=== PATIENT | female | born 1935 | race Caucasian/White ===

== ENCOUNTER 2016-10-13 12:05 | Outpatient (CLI) | payer MEDICARE ==
[2016-10-14 11:35] LABS: Bilirubin Negative (Negative); Blood, Urine Negative (Negative); Clarity Clear (Clear); Glucose, Urine (Dipstick) Negative (Negative); Leukocyte Small (Negative); Nitrite Negative (Negative); Protein, Urine (Dipstick) Negative (Neg-Trace); Urobilinogen 0.2 mg/dL (0.2-1.0); pH, Urine 6.5 (5.0-9.0)
[2016-10-14 11:56] LABS: Bacteria/HPF Rare-Few HPF (None Seen); RBC/HPF 0-3 HPF (0-3); Squamous Epithelial 0-3 HPF (0-3)
== END 2016-10-13 12:06 | disposition home or self-care (01) ==
LOC: MADLABBHPM 12:05
PROVIDERS: ATTEND Family Medicine
DX: R30.0 Dysuria (principal)
CPT/HCPCS: 36415; 81001; 87086

== ENCOUNTER 2017-02-06 09:24 | Emergency (ER) | payer MEDICARE | END 2017-02-06 10:16 | disposition home or self-care (01) | LOC: MADERS 09:24 | DX: J06.9 Acute upper respiratory infection, unspecified (principal); E03.9 Hypothyroidism, unspecified; I10 Essential (primary) hypertension; E78.5 Hyperlipidemia, unspecified; Z79.899 Other long term (current) drug therapy | CPT/HCPCS: 99283 ==

== ENCOUNTER 2017-09-07 00:12 | Inpatient (IN) | payer MEDICARE ==
[2017-09-07 01:20] LABS: Bilirubin Negative (Negative); Blood, Urine Negative (Negative); Clarity Clear (Clear); Glucose, Urine (Dipstick) Negative (Negative); Leukocyte Negative (Negative); Nitrite Negative (Negative); Protein, Urine (Dipstick) Negative (Neg-Trace); Urobilinogen 0.2 mg/dL (0.2-1.0)
[2017-09-07 01:33] LABS: #Basophils 0.1 thou/uL (0.0-0.2); #Lymphocytes 0.7 thou/uL (1.20-3.40); #Monocytes 1.2 thou/uL (0.11-0.59); %Basophils 0.6 % (0.0-1.0); %Eosinophils 0.1 % (0.0-10.0); %Lymphocytes 3.9 % (21.0-51.0); %Monocytes 6.6 % (0.0-10.0); %Neutrophils 88.8 % (42.0-75.0); Hemoglobin 12.4 g/dL (12.0-16.0); Mean Corpuscular Hemoglobin 29.6 pg (27.0-31.0); Mean Corpuscular Volume 89.7 fl (81.0-99.0); Platelet Count 189 thou/uL (130-400); RBC Distribution Width 11.7 % (11.5-14.5); Red Blood Cell (RBC) Count 4.19 mill/uL (4.20-5.40)
[2017-09-07 01:51] LABS: ALT (SGPT) 16 U/L (8-55); AST (SGOT) 21 U/L (5-34); Albumin 3.8 g/dL (3.4-4.8); Alkaline Phosphatase 86 U/L (40-150); Anion Gap 21 mmol/L (10-20); BUN (Urea Nitrogen) 18 mg/dL (9.8-20.1); Bilirubin, Total 0.7 mg/dL (0.2-1.2); Calc. Creatinine Clearance 0 mL/min (70-130); Calcium 9.4 mg/dL (7.8-10.44); Carbon Dioxide 17 mmol/L (23-31); Chloride 106 mmol/L (98-107); Estimated GFR-MDRD 46; Globulin 3.1 g/dL (2.4-3.5); Glucose 145 mg/dL (83-110); Potassium 3.9 mmol/L (3.5-5.1); Protein, Total 6.9 g/dL (6.0-8.3); Sodium 140 mmol/L (136-145)
[2017-09-07] MEDS ORDERED: Sodium Chloride 0.9% 1,000 ML IV SCH (03:30)
[2017-09-07] MEDS: Levothyroxine Sodium 75 MCG TAB PO SCH (06:28)
[2017-09-07 07:34] LABS: Albumin 3.5 g/dL (3.4-4.8); Anion Gap 14 mmol/L (10-20); BUN (Urea Nitrogen) 16 mg/dL (9.8-20.1); BUN/Creatinine Ratio 17.39; Calc. Creatinine Clearance 42 mL/min (70-130); Calcium 8.8 mg/dL (7.8-10.44); Carbon Dioxide 21 mmol/L (23-31); Chloride 108 mmol/L (98-107); Estimated GFR-MDRD 58; Glucose 121 mg/dL (83-110); Phosphorus 2.9 mg/dL (2.3-4.7); Potassium 4.1 mmol/L (3.5-5.1); Sodium 139 mmol/L (136-145)
[2017-09-07] MEDS ORDERED: Sodium Chloride 0.9% 500 ML BAG ONE (08:03)
[2017-09-07] MEDS: Lisinopril 5 MG TAB PO SCH (08:26)
[2017-09-07 08:35] LABS: Hemoglobin 11.9 g/dL (12.0-16.0); Mean Corpuscular HGB CONC 32.7 g/dL (32.0-36.0); Mean Corpuscular Hemoglobin 29.5 pg (27.0-31.0); Mean Platelet Volume 8.7 fL (7.4-10.4); Platelet Count 177 thou/uL (130-400); RBC Distribution Width 11.6 % (11.5-14.5); Red Blood Cell (RBC) Count 4.05 mill/uL (4.20-5.40); White Blood Cell (WBC) Count 13.7 thou/uL (4.8-10.8)
[2017-09-07 09:07] LABS: Anisocytosis SLIGHT = 6-15 cells (100X) (0-5/hpf); Band 2 % (5-11); Lymphocytes 6 % (21-51); MDiff Complete? YES; Monocytes 10 % (0-10); Neutrophil 82 % (42-75); PLT Morphology Comment Appears Adequate
--- NOTE | 2017-09-07 09:45 | HP ---
Admitted to [facility] on the technical consultant of 09/07/2017 CHIEF COMPLAINT: Weak and falling. PRESENT ILLNESS: The patient is an 82-year-old white female who has a history of dementia and expressive aphasia. She lives at home with her son, Kris as her primary caregiver. The patient has had a gradual decline in her strength over the last year and also has had progression of the dementia. On the day of admission, patient had fallen twice with no apparent injury, but she had become so weak that she could no longer be taking care of her home. Kris, her son who serves as her primary caregiver has a paralysis in the left arm. His capabilities are limited. The patient was brought to the emergency room where she was evaluated and evaluation included CBC that showed an H&H of 12.4 and 37.6 with a white blood cell count of 18,000 with 89% segs, 4% lymphocytes, and a platelet count of 189,000. Sodium was 140, potassium 3.9, BUN 18, creatinine 1.12, GFR 46. Her glucose was 145 nonfasting, calcium 9.4. Liver panel normal. Her urinalysis showed specific gravity 1.010, leukocytes were negative , nitrites were negative. The patient was admitted to the hospital after ER doctor conferred with me for frequent falls and leukocytosis. The patient was started on IV fluids. The patient was seen early on the morning of 09/07/2017. She was on room with a heater on and her face was flushed and she was alert, but due to her dementia and expressive aphasia, no information could be obtained from her. I have reviewed my records and records of her previous hospitalization and I placed a call to her son, Kris, who is to call me back for further details. The patient 's repeat lab work on this morning at 7:00 a.m. showed sodium 139, potassium 4.1 , BUN down to 16, creatinine down to 0.92 and GFR 58, glucose was 121. PAST MEDICAL AND SURGICAL HISTORY: Patient has a dementia, has been of gradual onset, has been progressive and probable the Alzheimer's type. She also has severe expressive aphasia, hypertension, hypothyroidism, hypercholesterolemia, and chronic kidney disease stage 3. She was hospitalized in 12/2015 for small left frontal subdural hematoma that was resolving with conservative care only with no focal neurologic deficit. Patient has had cataracts removed from the right eye with intraocular lens implant, L4-L5 depressive laminectomy by Dr. Darling in 04/2010, colonoscopy with removal of a benign polyp and also removal of a polypoid benign mass from anal canal in 2009, EGD on 01/2010 showed gastritis, echocardiogram on 08/07 showed ejection fraction of 50%-59%. Patient has had a fracture of the right arm requiring open reduction internal fixation of the right forearm. The patient had a left heart catheterization in 2002 that was normal and ejection fraction of 50%-55%. The patient is a 2, para 2. PRESENT MEDICINES: Lisinopril 5 mg daily, Donepezil 10 mg daily, levothyroxine 75 mcg 1 daily. ALLERGIES: ERYTHROMYCIN. REVIEW OF SYSTEMS: The patient unable to answer review of systems. ADLs: The patient requires assistance with her ADLs and all her instrumental ADLs. The patient is continent of urine and stools. HABITS: Alcohol none. Tobacco none. SOCIAL HISTORY: Patient resides in her home where her son, Kris is her primary caregiver. CODE STATUS: FULL. PHYSICAL EXAMINATION: GENERAL: Shows an 82-year-old white female who is lying in bed. The room is very warm from the heater. Her face is flushed. She has severe expressive aphasia and could not understand anything that she attempts to say. She does participate and help with simple instructions during the examination. VITAL SIGNS: Shows a temperature of 98.8, pulse 88, blood pressure 197/87, respirations 18, O2 sat 95% on room air, blood pressure earlier 176/72. Her weight is 127. Her height is 63.5 inches. HEAD: Normocephalic and atraumatic. EYES: Pupils were equal, round, and reactive. Sclerae nonicteric. EARS: TMs are blocked by cerumen. NOSE: Normal. MOUTH AND THROAT: Normal. NECK: Carotids are equal and strong, no bruits. Thyroid not enlarged. LUNGS: Clear. HEART: Regular rate. No murmurs. ABDOMEN: Soft, no organomegaly, nor areas of tenderness. EXTREMITIES: Show no bruising and no edema. Patient has good motion in the hip and knees with no pain. SKIN: There is no rash or bruising. NEUROLOGIC: Patient is alert, has severe expressive aphasia such that she cannot effectively communicate. She has no focal weakness. IMPRESSION: 1. Frequent falls. A. Two falls on the day of admission with no apparent injury. 2. Generalized weakness. A. Progressive. B. Level of care exceeds with her primary caregiver, her son can provide at this time. 3. Leukocytosis. 4. Alzheimer's dementia. 5. Expressive aphasia. 6. Hypertension. 7. Hypothyroidism. 8. Chronic kidney disease. 9. Dehydration. PLAN: Patient will be admitted for cautious hydration. We will place the patient back on her routine medicines and increase the lisinopril to 10 mg daily. We have physical therapy evaluate her and repeat CBC. At this point, there is no evidence of any infection. The leukocytosis may be secondary to decreased margination from the stressors of the recent falls, the falls probably secondary to progression of her weakness. See orders. MTDD
--- NOTE | 2017-09-07 12:30 | PRG ---
DATE OF SERVICE: 09/07/2017 SUBJECTIVE: I visited with patient's son, Kris, this morning and he told me that yesterday the higinio ent fell when she was out on the porch that is screened in. Later she got up and tried to walk and f ell again. Historically this last year, Kris says she has done pretty well other than progressive p roblems with expressive aphasia and some further confusion. He said she is usually able to walk pret ty well and will come out and walk out to the garden which is about 100 yards, but yesterday she coul d not do that, had the 2 falls. The patient usually is able to dress herself and bathe herself and s ometimes he might have to help her a little with this. She is usually continent of urine and stools. This morning when the nurses tried to get her up, she winced and would not bear any weight on that ri ght. She previously had been able to move that right hip without any pain, but with any attempt at w eight bearing, she complained. X-ray of the pelvis was ordered. This was reviewed and both hips are intact. I see no evidence of any fracture. The patient though does have a fracture of the right wyman perior and inferior pubic rami near the midline. ASSESSMENT: Closed fracture of the right superior and inferior pubic rami. PLAN: I visited with patient's son, Kris, to let him know about the hip fracture. I told him that this will not require any operative intervention, this will be managed with physical therapy and weig htbearing as tolerated. We will utilize the Tylenol for pain and also will add tramadol for pain if needed.
--- NOTE | 2017-09-07 12:42 | RAD ---
AP VIEW OF THE PELVIS: INDICATION: Pain. FINDINGS: There is a mildly displaced right pubic body fracture. No additional acute fracture is evident. The re is diffuse osteopenia. There are scattered vascular calcifications seen involving the pelvis. IMPRESSION: Right pubic body fracture. POS: RANDY
[2017-09-07] MEDS: Sodium Chloride 0.9% 1,000 ML IV SCH (13:01)
[2017-09-07] MEDS: Donepezil HCl 10 MG TAB PO SCH (20:44)
[2017-09-07] MEDS: traMADol HCl 50 MG TAB PO PRN (22:00)
[2017-09-08] MEDS: Sodium Chloride 0.9% 1,000 ML IV SCH (04:33)
[2017-09-08] MEDS: Levothyroxine Sodium 75 MCG TAB PO SCH (05:07)
[2017-09-08 05:42] LABS: #Eosinphils 0.1 thou/uL (0.0-0.7); #Lymphocytes 0.9 thou/uL (1.20-3.40); #Monocytes 0.8 thou/uL (0.11-0.59); #Neutrophils 9.8 thou/uL (1.40-6.50); %Basophils 0.4 % (0.0-1.0); %Eosinophils 0.6 % (0.0-10.0); %Lymphocytes 7.7 % (21.0-51.0); %Neutrophils 84.4 % (42.0-75.0); Hemoglobin 11.1 g/dL (12.0-16.0); Mean Corpuscular HGB CONC 33.2 g/dL (32.0-36.0); Mean Corpuscular Hemoglobin 29.4 pg (27.0-31.0); Mean Corpuscular Volume 88.5 fl (81.0-99.0); Platelet Count 150 thou/uL (130-400); RBC Distribution Width 11.9 % (11.5-14.5); Red Blood Cell (RBC) Count 3.78 mill/uL (4.20-5.40); White Blood Cell (WBC) Count 11.6 thou/uL (4.8-10.8)
[2017-09-08 05:46] LABS: Anion Gap 14 mmol/L (10-20); BUN (Urea Nitrogen) 14 mg/dL (9.8-20.1); Calc. Creatinine Clearance 48 mL/min (70-130); Calcium 8.4 mg/dL (7.8-10.44); Carbon Dioxide 20 mmol/L (23-31); Cardiac Risk 2.8 (Less than 4.5); Chloride 109 mmol/L (98-107); Cholesterol 160 mg/dl (< 200 Desired); Estimated GFR-MDRD 67; Glucose 110 mg/dL (83-110); HDL Cholesterol 57 mg/dL (>60 Neg Risk); LDL Cholesterol, Calculated 88 mg/dL; Sodium 139 mmol/L (136-145); Triglycerides 74 mg/dL (Less than 150)
[2017-09-08] MEDS: Acetaminophen 325 MG TAB PO PRN ×2 (08:36→16:10)
[2017-09-08] MEDS: Lisinopril 5 MG TAB PO SCH (08:36)
--- NOTE | 2017-09-08 08:55 | PRG ---
DATE OF SERVICE: 09/08/2017 SUBJECTIVE: The patient apparently had a good night. She has been using Tylenol for pain and has gomez d one dose of tramadol. This morning she is up in her chair. OBJECTIVE: GENERAL: The patient is sitting in a bedside chair. She looks very comfortable. She is attempting to talk, but could not understand what she says with her severe expressive aphasia. She appears comf ortable, in no distress. VITAL SIGNS: Her vital sign shows a temperature of 98.1, pulse 85, respirations 20, O2 sat 96% on ro om air. Blood pressure 164/72, last evening blood pressure was 134/68. LUNGS: Clear. HEART: Regular rate. EXTREMITIES: No edema LABORATORY DATA: Her lab shows an H&H of 12.1 and 33.4. White cell count 11,600 with 84% segs, 8% l ymphocytes, and platelet count 150,000. Sodium 139, potassium 4, BUN 14, creatinine 0.81, glucose 11 0. TSH 0.7, cholesterol 160, triglycerides 74, LDL 88, HDL 57. ASSESSMENT: 1. Fracture, right side pubic symphysis. A. Presenting with initial fall, which probably result in fracture and then a subsequent fall when s he could not support herself on the right leg. 2. Generalized weakness, complicated by gait abnormality. A. Secondary to the pubic symphysis fracture. 3. Leukocytosis. A. Resolved. B. Etiology probably secondary to stress from the fracture and the falls causing increased demargina tion. 4. Alzheimer's dementia. 5. Expressive aphasia. 6. Hypertension, controlled. 7. Hypothyroidism. 8. Chronic kidney disease. 9. Dehydration, resolved. PLAN: Stop the IV fluids. We utilize Tylenol for pain and tramadol for fall back. Physical therapy will work with her for gait training and strengthening.
[2017-09-08] MEDS ORDERED: FLU VACC TS2017-18 (>65YR) 0.5 ML SYRINGE IM ONE (09:00)
[2017-09-08] MEDS ORDERED: Sodium Chloride 0.9% 1,000 ML BAG ONE (12:01)
[2017-09-08 15:50] VITALS: BMI 21.7
[2017-09-08] MEDS: traMADol HCl 50 MG TAB PO PRN (17:39)
[2017-09-08] MEDS: Donepezil HCl 10 MG TAB PO SCH (20:29)
[2017-09-08] MEDS ORDERED: Acetaminophen 325 MG TAB PO PRN (22:00)
[2017-09-08] MEDS: Acetaminophen 325 MG TAB PO SCH (23:49)
[2017-09-09] MEDS: Levothyroxine Sodium 75 MCG TAB PO SCH (06:12)
[2017-09-09] MEDS: Acetaminophen 325 MG TAB PO SCH ×3 (08:25→23:44)
[2017-09-09] MEDS: Lisinopril 5 MG TAB PO SCH (08:25)
[2017-09-09] MEDS: Enoxaparin Sodium 30 MG/0.3 ML SYRINGE SC SCH (08:28)
--- NOTE | 2017-09-09 09:12 | PRG ---
DATE OF SERVICE: 09/09/2017 SUBJECTIVE: The patient had an uneventful night. She has been getting up in a chair, but the proces s of transfer is uncomfortable for her. I have this scheduled her with Tylenol 650 mg every 8 hours, and then the tramadol is used for breakthrough pain. Her son, Kris, is with her and said she is no t eating as good as usual and hopes to see her get back into her usual home routine, up with her meal s, business coordinator coffee, which he has brought her. OBJECTIVE: The patient is in bed with the head elevated. She looks a little uncomfortable. The rafaela se had said that she wears her support hose, but does not like to use the sequential compression seymour katya. Lungs are clear. Heart, regular rate. There is no bruise around the pelvic area, lower extrem ities have no edema. Her temperature is 98.1, pulse 64, respirations 20, O2 sat 96% on room air, blo od pressure 156/80. ASSESSMENT: 1. Fracture, right side pubic symphysis. A. Presenting with initial fall, which probably result in fracture and then a subsequent fall when s he could not support herself on the right leg. B. Tolerating up in a chair and pivot with the left leg as of 09/09/2017. 2. Generalized weakness, complicated by gait abnormality. A. Secondary to the pubic symphysis fracture. 3. Leukocytosis. A. Resolved. B. Etiology probably secondary to stress from the fracture and the falls causing increased demargina tion. 4. Alzheimer's dementia. 5. Expressive aphasia. 6. Hypertension, controlled. 7. Hypothyroidism. 8. Chronic kidney disease. 9. Dehydration, resolved. PLAN: We will continue the scheduled Tylenol and use the tramadol for breakthrough pain. We will st op the sequential compression devices since she seems uncomfortable with these. Continue the FANNY hos e and will place the patient on Lovenox since her activities are very restricted after this pelvic fr acture, exposing her to a higher risk of DVT.
[2017-09-09] MEDS: traMADol HCl 50 MG TAB PO PRN (12:43)
[2017-09-09] MEDS: Donepezil HCl 10 MG TAB PO SCH (20:36)
[2017-09-10] MEDS: Levothyroxine Sodium 75 MCG TAB PO SCH (05:28)
[2017-09-10] MEDS: traMADol HCl 50 MG TAB PO PRN (07:33)
[2017-09-10] MEDS: Acetaminophen 325 MG TAB PO SCH (07:34)
[2017-09-10] MEDS: Lisinopril 5 MG TAB PO SCH (09:34)
[2017-09-10] MEDS: Enoxaparin Sodium 30 MG/0.3 ML SYRINGE SC SCH (09:34)
[2017-09-10 09:41] VITALS: BP 200/95; TEMP 97.5
--- NOTE | 2017-09-10 15:16 | PRG ---
DATE OF SERVICE: 09/10/2017 SUBJECTIVE: The patient has been very uncomfortable in the process of transferring from bed to a bailey ir and takes a while once in the chair to settle down, tried getting patient on more frequent particu larly with meals, but this seems just to be too much for patient, will slow this process down, we andrzej l place her on regular dose of ibuprofen and then have the tramadol for a fall back. The Tylenol als o has been scheduled and hopefully this will give her a little bit more pain relief. OBJECTIVE: GENERAL: The patient is up in a chair; semi reclined and looks uncomfortable. VITAL SIGNS: Her vital sign shows temperature 98.5, pulse 71, respirations 18, O2 saturation 98%, an d blood pressure 140/90. LUNGS: Clear. HEART: Regular rate. ASSESSMENT: 1. Fracture, right side pubic symphysis. A. Presenting with initial fall, which probably result in fracture and then a subsequent fall when s he could not support herself on the right leg. B. Having difficult time for transfer from bed to a chair as of 09/10/2017. 2. Generalized weakness, complicated by gait abnormality. A. Secondary to the pubic symphysis fracture. 3. Leukocytosis. A. Resolved. B. Etiology probably secondary to stress from the fracture and the falls causing increased demargina tion. 4. Alzheimer's dementia. 5. Expressive aphasia. 6. Hypertension, controlled. 7. Hypothyroidism. 8. Chronic kidney disease. 9. Dehydration, resolved. PLAN: We will slow down the activities. We will allow her a little more at bed rest and then progre ss her up to side of the bed today as well and she tolerates progress her to the chair. At home, she utilizes the ibuprofen, but this had been stopped due to renal insufficiency with the renal in sufficiency, we will leave the ibuprofen off and continue to scheduled dose of Tylenol and use of tra madol for breakthrough pain. We will move patient to extended care for continued physical therapy an d pain management.
== END 2017-09-10 10:54 | disposition swing bed (61) | DRG 536 ==
LOC: MADERS 00:12 → MADMS 02:22
PROVIDERS: ADMIT Family Medicine; ATTEND Family Medicine
DX: S32.511A Fracture of superior rim of right pubis, initial encounter for closed fracture (principal); R47.01 Aphasia; G30.9 Alzheimer's disease, unspecified; N18.3 Chronic kidney disease, stage 3 (moderate); F02.80 Dementia in other diseases classified elsewhere, unspecified severity, without behavioral disturbance, psychotic disturbance, mood disturbance, and anxiety; S32.591A Other specified fracture of right pubis, initial encounter for closed fracture; R53.1 Weakness; E86.0 Dehydration; Z91.81 History of falling; E03.9 Hypothyroidism, unspecified; E78.00 Pure hypercholesterolemia, unspecified; I12.9 Hypertensive chronic kidney disease with stage 1 through stage 4 chronic kidney disease, or unspecified chronic kidney disease; Z88.1 Allergy status to other antibiotic agents; W18.30XA Fall on same level, unspecified, initial encounter
CPT/HCPCS: 36415; 72170; 80048; 80053; 80061; 81003; 84443; 85025; 93005; 93010; 99285; A4353; G8978-GP-CM; G8979-GP-CJ; J1650; J7050

== ENCOUNTER 2017-09-10 08:46 | Inpatient (IN) | payer MEDICARE ==
[2017-09-10] MEDS: Acetaminophen 325 MG TAB PO SCH ×2 (16:09→23:47)
[2017-09-10] MEDS: Donepezil HCl 10 MG TAB PO SCH (20:15)
[2017-09-10] MEDS: traMADol HCl 50 MG TAB PO PRN (23:47)
[2017-09-11 01:35] LABS: Bilirubin Negative (Negative); Blood, Urine Large (Negative); Clarity Cloudy (Clear); Glucose, Urine (Dipstick) Negative (Negative); Leukocyte Small (Negative); Nitrite Negative (Negative); Protein, Urine (Dipstick) 100 mg/dL (Neg-Trace); Specific Gravity, Urine 1.015 (1.005-1.030); Urobilinogen 0.2 mg/dL (0.2-1.0); pH, Urine 8.5 (5.0-9.0)
[2017-09-11 01:45] LABS: Bacteria/HPF 4+ HPF (None Seen); RBC/HPF 21-50 HPF (0-3); Squamous Epithelial None Seen HPF (0-3); WBC/HPF 21-50 HPF (0-3)
[2017-09-11] MEDS: Levothyroxine Sodium 75 MCG TAB PO SCH (05:53)
[2017-09-11] MEDS: traMADol HCl 50 MG TAB PO PRN (08:32)
[2017-09-11] MEDS: Acetaminophen 325 MG TAB PO SCH ×2 (08:35→16:23)
[2017-09-11] MEDS: Enoxaparin Sodium 30 MG/0.3 ML SYRINGE SC SCH (08:36)
[2017-09-11] MEDS ORDERED: Enoxaparin Sodium 30 MG/0.3 ML SYRINGE SC SCH (09:00)
[2017-09-11] MEDS ORDERED: Lisinopril 5 MG TAB PO SCH ×3 (09:00→09:30)
[2017-09-11] MEDS: Cipro 250 MG TAB PO SCH ×2 (09:55→20:19)
[2017-09-11] MEDS: Lisinopril 5 MG TAB PO SCH (09:55)
--- NOTE | 2017-09-11 11:49 | PRG ---
DATE OF SERVICE: 09/11/2017 SUBJECTIVE: Last evening, the patient had not voided. Bladder scan was done and showed over 1000 mL of fluid in the bladder. Catheter was placed and left and there was 1400 mL residual. This morning , the patient is in bed with the head elevated. She looks much more comfortable, does not appear in any pain. OBJECTIVE: VITAL SIGNS: Show a temperature 97.5, pulse 67, respirations 18, O2 sat 99% on room air, blood press ure 200/95. LUNGS: Clear. HEART: Regular rate. ABDOMEN: Soft, nontender. LABORATORY DATA: Urine shows 21-50 rbc's and 21-50 wbc's, 4+ bacteria, nitrite is negative. ASSESSMENT: 1. Fracture, right side pubic symphysis. A. Presenting with initial fall, which probably result in fracture and then a subsequent fall when s he could not support herself on the right leg. B. Pain better controlled. 2. Generalized weakness, complicated by gait abnormality. A. Secondary to the pubic symphysis fracture. 3. Leukocytosis. A. Resolved. B. Etiology probably secondary to stress from the fracture and the falls causing increased demargina tion. 4. Alzheimer's dementia. 5. Expressive aphasia. 6. Hypertension. A. Not adequately controlled. 7. Hypothyroidism. 8. Chronic kidney disease. 9. Dehydration, resolved. 10. Urinary retention. A. 1400 mL residual with placement of catheter on the evening of 09/10/2017. 11. Urinary tract infection. A. Urinalysis suspicious of urinary tract infection done on the evening of 09/10/2017. B. Culture pending. PLAN: Increase lisinopril to 10 mg daily. Continue indwelling Cha catheter. We will place the myrna lebron on Cipro for presumed urinary tract infection. Culture of the urine is pending. We will manuel nue gradual progression of activities within her tolerance. Physical Therapy will continue to work w ith her.
[2017-09-11] MEDS: Donepezil HCl 10 MG TAB PO SCH (20:20)
[2017-09-12] MEDS: Acetaminophen 325 MG TAB PO SCH ×4 (00:01→23:40)
[2017-09-12] MEDS: Levothyroxine Sodium 75 MCG TAB PO SCH (05:43)
[2017-09-12] MEDS: Enoxaparin Sodium 30 MG/0.3 ML SYRINGE SC SCH (08:57)
[2017-09-12] MEDS: Cipro 250 MG TAB PO SCH ×2 (08:57→20:30)
--- NOTE | 2017-09-12 11:19 | PRG ---
DATE OF SERVICE: 09/12/2017 SUBJECTIVE: This morning, the patient has been a little restless. She was pulling the catheter that was fixed to the left leg. This was repositioned on the right leg; however, she still seems a littl e restless. She had been medicated with Tylenol, and if this does not relieve her, will utilize the tramadol. The patient did get up for a while yesterday. OBJECTIVE: GENERAL: The patient is lying in bed, is a little restless in bed. VITAL SIGNS: Shows a temperature of 98.3, pulse of 72, respirations 20, O2 sat 96% and blood pressur e 163/58. LUNGS: Clear. HEART: Regular rate. EXTREMITIES: Have no edema. ASSESSMENT: 1. Fracture, right side pubic symphysis. A. Presenting with initial fall, which probably result in fracture and then a subsequent fall when she could not support herself on the right leg. B. The patient is a little more restless today, suspect related to the pain. 2. Generalized weakness, complicated by gait abnormality. A. Secondary to the pubic symphysis fracture. 3. Leukocytosis. A. Resolved. B. Etiology probably secondary to stress from the fracture and the falls causing increased bebeto gination. 4. Alzheimer's dementia. 5. Expressive aphasia. 6. Hypertension. A. Not adequately controlled. 7. Hypothyroidism. 8. Chronic kidney disease. 9. Dehydration, resolved. 10. Urinary retention. A. 1400 mL residual with placement of catheter on the evening of 09/10/2017. 11. Urinary tract infection. A. Urinalysis suspicious of urinary tract infection done on the evening of 09/10/2017. B. Culture pending. PLAN: The patient has the Tylenol on a scheduled basis. She has been medicated this morning and andrzej l follow up with the tramadol if this does not help. We will also order a Gaymar pump to apply to ar eas of soreness, try progressing her up into a chair to see if she just may be tired of the bed or he lp with position change.
[2017-09-12] MEDS: traMADol HCl 50 MG TAB PO PRN ×2 (12:23→20:31)
[2017-09-12] MEDS: Donepezil HCl 10 MG TAB PO SCH (20:31)
[2017-09-12] MEDS: Lantiseptic Ointment 130 GM JAR TOP SCH (20:31)
[2017-09-13] MEDS: Levothyroxine Sodium 75 MCG TAB PO SCH (05:49)
[2017-09-13] MEDS: Cipro 250 MG TAB PO SCH ×2 (08:26→20:53)
[2017-09-13] MEDS: Acetaminophen 325 MG TAB PO SCH ×2 (08:27→17:03)
[2017-09-13] MEDS: Lantiseptic Ointment 130 GM JAR TOP SCH ×2 (08:27→20:53)
[2017-09-13] MEDS: Lisinopril 5 MG TAB PO SCH (08:27)
[2017-09-13] MEDS: Enoxaparin Sodium 30 MG/0.3 ML SYRINGE SC SCH (08:28)
[2017-09-13] MEDS: traMADol HCl 50 MG TAB PO PRN ×2 (09:06→17:27)
[2017-09-13] MEDS: Donepezil HCl 10 MG TAB PO SCH (20:53)
[2017-09-14] MEDS: Acetaminophen 325 MG TAB PO SCH ×2 (00:05→16:49)
[2017-09-14] MEDS: Levothyroxine Sodium 75 MCG TAB PO SCH (05:24)
[2017-09-14] MEDS: Cipro 250 MG TAB PO SCH (09:19)
[2017-09-14] MEDS: Lisinopril 5 MG TAB PO SCH (09:19)
[2017-09-14] MEDS: Acetaminophen 500 MG TAB PO SCH ×3 (09:20→23:03)
[2017-09-14] MEDS: Lantiseptic Ointment 130 GM JAR TOP SCH ×2 (09:20→20:27)
[2017-09-14] MEDS: Enoxaparin Sodium 30 MG/0.3 ML SYRINGE SC SCH (09:20)
--- NOTE | 2017-09-14 12:00 | PRG ---
DATE OF SERVICE: 09/14/2017 SUBJECTIVE: Yesterday the patient wanted the catheter out. The catheter was removed per her request and patient closely observed. Over the next few hours the patient did not void after the patient wa s scanned and had of 460 mL volume of the bladder. The patient was placed on bed chand, tried to be as sisted in urinating, but to no effect. Cha catheter was placed and the patient had of 475 mL resid ual. On the morning of 09/14/2017 the patient is sitting up in bed. She looks uncomfortable and is intermittently tearful due to her severe expressive aphasia, she really cannot say what is bothering her, indicated to point to what is hurting her, she says just all over. OBJECTIVE: The patient's temperature this morning is 97.9, pulse 79, respirations 17, O2 sat 98%, bl ood pressure 152/76. Lungs are clear. Heart, regular rate. Pelvic area shows no bruising, the abdo men is soft. Lower extremities, there is no edema. ASSESSMENT: 1. Fracture, right side pubic symphysis. A. Presenting with initial fall, which probably result in fracture and then a subsequent fall when she could not support herself on the right leg. B. The patient is a little more restless today, suspect related to the pain as of 09/14/2017. 2. Generalized weakness, complicated by gait abnormality. A. Secondary to the pubic symphysis fracture. 3. Leukocytosis. A. Resolved. B. Etiology probably secondary to stress from the fracture and the falls causing increased bebeto gination. 4. Alzheimer's dementia. 5. Expressive aphasia. 6. Hypertension. A. Not adequately controlled. 7. Hypothyroidism. 8. Chronic kidney disease. 9. Dehydration, resolved. 10. Urinary retention. A. 1400 mL residual with placement of catheter on the evening of 09/10/2017. B. Catheter removed on 09/13/2017 per request of the patient. The patient was unable to void, ca theter replaced and 475 mL residual as of 09/14/2017. 11. Urinary tract infection. A. Urinalysis suspicious of urinary tract infection done on the evening of 09/10/2017. B. Culture pending. PLAN: Continue the scheduled dose of Tylenol. We will increase the tramadol to 500 mg scheduled t.i .d. and continue the tramadol as needed. If the 50 mg is not adequate for relief, we will increase t his. Continue physical therapy. Continue Cha.
[2017-09-14] MEDS: Donepezil HCl 10 MG TAB PO SCH (20:26)
[2017-09-14] MEDS ORDERED: Ciprofloxacin 500 MG TAB PO SCH (21:00)
[2017-09-15] MEDS: Levothyroxine Sodium 75 MCG TAB PO SCH (05:40)
[2017-09-15] MEDS: Acetaminophen 500 MG TAB PO SCH ×2 (08:13→16:23)
[2017-09-15] MEDS: Enoxaparin Sodium 30 MG/0.3 ML SYRINGE SC SCH (08:13)
[2017-09-15] MEDS: Lisinopril 5 MG TAB PO SCH (08:14)
[2017-09-15] MEDS: Lantiseptic Ointment 130 GM JAR TOP SCH ×2 (10:53→20:49)
--- NOTE | 2017-09-15 14:22 | PRG ---
DATE OF SERVICE: 09/15/2017 SUBJECTIVE: The patient has been doing better. She has been much more comfortable, had a good night . She has not been pulling at her catheter. Her son, Kris says she is eating better and overall se ems more comfortable. OBJECTIVE: GENERAL: The patient is lying in bed. She is awake and smiling, and appears very comfortable. WAGNER L SIGNS: Shows a temperature of 98.2, pulse 86, respirations 20, O2 sat 98% on room air, blood press ure 120/62. LUNGS: Clear. HEART: Regular rate. EXTREMITIES: No edema. ASSESSMENT: 1. Fracture, right side pubic symphysis. A. Presenting with initial fall, which probably result in fracture and then a subsequent fall when she could not support herself on the right leg. B. Improved. Pain seems to be well controlled as of 09/15/2017. 2. Generalized weakness, complicated by gait abnormality. A. Secondary to the pubic symphysis fracture. 2. B. The patient requires maximum assistance and transparent. Remaining diagnosis are the christi e. 3. Leukocytosis. A. Resolved. B. Etiology probably secondary to stress from the fracture and the falls causing increased bebeto gination. 4. Alzheimer's dementia. 5. Expressive aphasia. 6. Hypertension. A. Not adequately controlled. 7. Hypothyroidism. 8. Chronic kidney disease. 9. Dehydration, resolved. 10. Urinary retention. A. 1400 mL residual with placement of catheter on the evening of 09/10/2017. B. Catheter removed on 09/13/2017 per request of the patient. The patient was unable to void, ca theter replaced and 475 mL residual as of 09/14/2017. 11. Urinary tract infection. A. Urinalysis suspicious of urinary tract infection done on the evening of 09/10/2017. B. Urine culture had less than 10,000 colony count of mixed skin isaac, no evidence of an infect ion. PLAN: Continue present care. Continue physical therapy. Discontinue the Cipro.
[2017-09-15] MEDS: Donepezil HCl 10 MG TAB PO SCH (20:49)
[2017-09-16] MEDS: Acetaminophen 500 MG TAB PO SCH ×3 (01:47→16:30)
[2017-09-16] MEDS: Levothyroxine Sodium 75 MCG TAB PO SCH (05:35)
[2017-09-16] MEDS: Lisinopril 5 MG TAB PO SCH (08:04)
[2017-09-16] MEDS: Enoxaparin Sodium 30 MG/0.3 ML SYRINGE SC SCH (08:06)
[2017-09-16] MEDS: Lantiseptic Ointment 130 GM JAR TOP SCH ×2 (08:07→20:43)
--- NOTE | 2017-09-16 11:25 | PRG ---
DATE OF SERVICE: 09/16/2017 SUBJECTIVE: The patient is resting comfortably in bed, is smiling and appears in no distress. Nurse s report she attempted to get her up yesterday, but she just got too uncomfortable and resistant to t his. Physical therapy is working with her with strengthening exercise while in bed and will begin emma macario to see her tolerance sitting on the side of the bed. The patient has not been eating. OBJECTIVE: The patient is lying in bed, looks very comfortable, in no distress. Her temperature is 97.6, pulse 72, respirations 18, O2 sat on room air 95, blood pressure 160/74, earlier 120/60. Lung s are clear. Heart, regular rate. Abdomen is soft, nontender. Lower extremities, there is no edema. Cha catheter is functioning well. ASSESSMENT: 1. Fracture, right side pubic symphysis. A. Presenting with initial fall, which probably result in fracture and then a subsequent fall when she could not support herself on the right leg. B. Pain controlled as of 09/16/2017. 2. Generalized weakness, complicated by gait abnormality. A. Secondary to the pubic symphysis fracture. B. Has not tolerated sitting up in a chair. Therapy is working with strengthening exercise in b ed and will begin trying to progress her again back up into a chair as of 09/16/2017. 3. Leukocytosis. A. Resolved. B. Etiology probably secondary to stress from the fracture and the falls causing increased bebeto gination. 4. Alzheimer's dementia. 5. Expressive aphasia. 6. Hypertension. A. Controlled. 7. Hypothyroidism. 8. Chronic kidney disease. 9. Dehydration, resolved. 10. Urinary retention. A. 1400 mL residual with placement of catheter on the evening of 09/10/2017. B. Catheter removed on 09/13/2017 per request of the patient. The patient was unable to void, ca theter replaced and 475 mL residual as of 09/14/2017. 11. Urinary tract infection. A. Urinalysis suspicious of urinary tract infection done on the evening of 09/10/2017. B. Urine culture had less than 10,000 colony count of mixed skin isaac, no evidence of an infect ion. 12. Anorexia. A. Possibly related to the Aricept. PLAN: Physical therapy will continue to gradually progress the patient's activities. We will stop t he Aricept in the event this is creating some of the anorexia.
[2017-09-17] MEDS: Acetaminophen 500 MG TAB PO SCH ×4 (00:24→23:27)
[2017-09-17] MEDS: Levothyroxine Sodium 75 MCG TAB PO SCH (05:27)
[2017-09-17] MEDS: Lisinopril 5 MG TAB PO SCH (10:15)
[2017-09-17] MEDS: Enoxaparin Sodium 30 MG/0.3 ML SYRINGE SC SCH (10:15)
[2017-09-17] MEDS: Lantiseptic Ointment 130 GM JAR TOP SCH ×2 (10:17→20:36)
[2017-09-18] MEDS: Acetaminophen 500 MG TAB PO SCH ×6 (00:08→23:52)
[2017-09-18] MEDS: Levothyroxine Sodium 75 MCG TAB PO SCH (05:35)
[2017-09-18] MEDS: Lisinopril 5 MG TAB PO SCH (08:47)
[2017-09-18] MEDS: Lantiseptic Ointment 130 GM JAR TOP SCH ×2 (08:48→21:00)
[2017-09-18] MEDS: Enoxaparin Sodium 30 MG/0.3 ML SYRINGE SC SCH (08:48)
--- NOTE | 2017-09-18 12:36 | PRG ---
DATE OF SERVICE: 09/18/2017 SUBJECTIVE: Nurses report that patient was eating better her breakfast today. Her donepezil had bee n stopped in the event this was contributing to the lack of appetite. She has still been resistant t o trying to get up and she seems to stiffen up when efforts were made to get her up. They will try t o resume trial of getting her up in a Heydi chair and transfer her. OBJECTIVE: GENERAL: The patient is lying in her bed with the head elevated. She has a depressed affect. VITAL SIGNS: Shows temperature of 98, pulse 65, blood pressure 169/74, respirations 18, O2 saturatio n 98%. LUNGS: Clear. HEART: Regular rate. LOWER EXTREMITIES: No edema. ASSESSMENT: 1. Fracture, right side pubic symphysis. A. Presenting with initial fall, which probably result in fracture and then a subsequent fall when she could not support herself on the right leg. B. Pain seemed to be better controlled, but she has still been resistant getting up in chair. 2. Generalized weakness, complicated by gait abnormality. A. Secondary to the pubic symphysis fracture. B. Primarily bed confined. Has been resistant getting up in a chair. We will try advancing thi s. Her pain seemed to be better controlled as of 09/18/2017. 3. Leukocytosis. A. Resolved. B. Etiology probably secondary to stress from the fracture and the falls causing increased bebeto gination. 4. Alzheimer's dementia. 5. Expressive aphasia. 6. Hypertension. 7. Hypothyroidism. 8. Chronic kidney disease. 9. Dehydration, resolved. 10. Urinary retention. A. 1400 mL residual with placement of catheter on the evening of 09/10/2017. B. Catheter removed on 09/13/2017 per request of the patient. The patient was unable to void, ca theter replaced and 475 mL residual as of 09/14/2017. 11. Urinary tract infection. A. Urinalysis suspicious of urinary tract infection done on the evening of 09/10/2017. B. Urine culture had less than 10,000 colony count of mixed skin isaac, no evidence of an infect ion. 12. Anorexia. A. Possibly related to the Aricept. B. Improved as of 09/18/2017. 13. Depression. PLAN: We will again try to start getting patient up in a chair and see how she tolerates this. From there, hopefully will be able to begin some gait training. Her pain has been limiting her, but her pain seemed to be better controlled. She is eating a little better. She has depressed affect. We w ill try her on mirtazapine at bedtime. This may help with her depression and also with her appetite.
[2017-09-18] MEDS: traMADol HCl 50 MG TAB PO PRN (14:48)
[2017-09-18] MEDS: Mirtazapine 15 MG TAB PO SCH (21:00)
[2017-09-19] MEDS: Levothyroxine Sodium 75 MCG TAB PO SCH (05:24)
[2017-09-19] MEDS: Enoxaparin Sodium 30 MG/0.3 ML SYRINGE SC SCH (08:02)
[2017-09-19] MEDS: Lisinopril 5 MG TAB PO SCH (08:02)
[2017-09-19] MEDS: Lantiseptic Ointment 130 GM JAR TOP SCH ×2 (08:02→20:25)
[2017-09-19] MEDS: Acetaminophen 500 MG TAB PO SCH ×2 (08:02→16:59)
--- NOTE | 2017-09-19 17:30 | RAD ---
RADIOGRAPH LEFT HIP 2 VIEWS: 09/19/17 HISTORY: 82-year-old female with left hip pain and "new popping sound." FINDINGS: There is no evidence of fracture. No dislocation. Femoral head contour is maintained, and there is no subcapital or acetabular significant osteophytosis. There is a lobulated bony excrescence protruding superiorly from the lateral aspect of the greater trochanter, visible only on the frogleg view. No o ther focal significant osseous abnormality is identified. There is osteopenia. IMPRESSION: 1. Osteopenia. 2. Exostosis versus moderate sized enthesophyte arising from greater trochanter. 3. Otherwise normal radiographic appearance of the left hip joint. POS: [facility]
--- NOTE | 2017-09-19 17:34 | RAD ---
RADIOGRAPH PELVIS 1 VIEW: Date: 09/19/17 Time: 5:01 p.m. HISTORY: 82-year-old female with "new popping sound with increased pain." No mention of trauma. COMPARISON: Prior right hip radiograph of 08/21/15. FINDINGS: There is a new finding of a displaced fracture of the right pubic body, with a step-off at the juncti on with the right superior pubic ramus. The rest of the pelvic ring appears to be intact. There is no dislocation of the hips. There are severe degenerative changes at the lower lumbar spine. There is d iffuse osteopenia. IMPRESSION: 1. Displaced fracture of the right pubis, which appears acute. 2. Lower lumbar spondylosis. POS: [facility]
[2017-09-19] MEDS: traMADol HCl 50 MG TAB PO PRN (18:21)
[2017-09-19] MEDS: Mirtazapine 15 MG TAB PO SCH (20:25)
[2017-09-20] MEDS: Acetaminophen 500 MG TAB PO SCH ×2 (00:03→08:16)
[2017-09-20] MEDS: traMADol HCl 50 MG TAB PO PRN (03:20)
[2017-09-20] MEDS: Levothyroxine Sodium 75 MCG TAB PO SCH (05:48)
[2017-09-20] MEDS: Lisinopril 5 MG TAB PO SCH (08:16)
[2017-09-20] MEDS: Enoxaparin Sodium 30 MG/0.3 ML SYRINGE SC SCH (08:19)
[2017-09-20] MEDS: Lantiseptic Ointment 130 GM JAR TOP SCH ×2 (08:19→21:36)
[2017-09-20] MEDS: HYDROcodone/Acetaminophen 5/325 mg Tablet PO PRN ×2 (09:17→15:39)
[2017-09-20] MEDS ORDERED: methylPREDNISolone 4 mg Tablet PO SCH (09:30)
[2017-09-20] MEDS ORDERED: CONFIRM ALL DAY 1 DOSES ARE TIMED FOR DAY 1 FS SCH (10:00)
[2017-09-20 10:22] LABS: ALT (SGPT) 47 U/L (8-55); AST (SGOT) 32 U/L (5-34); Albumin 3.6 g/dL (3.4-4.8); Alkaline Phosphatase 248 U/L (40-150); Anion Gap 14 mmol/L (10-20); BUN (Urea Nitrogen) 18 mg/dL (9.8-20.1); Bilirubin, Total 0.5 mg/dL (0.2-1.2); Calc. Creatinine Clearance 51 mL/min (70-130); Calcium 9.2 mg/dL (7.8-10.44); Carbon Dioxide 24 mmol/L (23-31); Chloride 106 mmol/L (98-107); Estimated GFR-MDRD 69; Globulin 3.4 g/dL (2.4-3.5); Glucose 93 mg/dL (83-110); Potassium 4.1 mmol/L (3.5-5.1); Sodium 140 mmol/L (136-145)
[2017-09-20] MEDS: methylPREDNISolone 4 mg Tablet PO SCH ×3 (12:45→21:35)
--- NOTE | 2017-09-20 19:08 | PRG ---
DATE OF SERVICE: 09/20/2017 SUBJECTIVE: The patient has just not been able to stay comfortable yesterday. Effort to turn her or change her diaper resulted in pain and the patient becoming very anxious in anticipation of the move ment due to the pain. The nurses felt a pop when they moved her in the left hip. Repeat x-ray of th e pelvis was done. This showed the displaced fracture of the right pubis and then the evidence of th e spondylosis of the lumbar spine. X-ray of the left hip just showed the arthritic changes, but no f racture. During the night, the patient had a hard time getting comfortable and that was resistant to the nurses even changing the diaper. The tramadol 50 mg had been helping her with pain, but nurses said this no longer seems to be giving her relief. OBJECTIVE: The patient lying in bed on her back and appears comfortable. Any effort toward turning seems to induce pain. She could not really point or indicate where she hurts. Her vital signs shows a temperature of 97.7, pulse 68, respirations 16, temperature 98 and blood pressure 148/60. The mere gs are clear. Heart, regular rate. Abdomen is soft and nontender. Examined the patient and she has no areas of tenderness along the shoulder or the upper extremities. There is no bruise in those are as, evidence of an old fracture present and callus formation of the right upper humerus. The patient has no tenderness along the chest and thorax and her neck is nontender. Head is nontender. Abdomen was soft and nontender, palpation along the spine, produces no areas of point tenderness. Patient d id not seem to experience any pain on just palpation over the pubic symphysis. There were some bruis ing along the medial right thigh that is gradually fading. The patient has good motion in both hips without pain. The lower extremities are nontender. When patient is turned though she has a lot of p ain and when the pelvic bone was compressed, she had pain, began crying. ASSESSMENT: 1. Fracture, right side pubic symphysis. A. Presenting with initial fall, which probably result in fracture and then a subsequent fall when she could not support herself on the right leg. B. Repeat x-ray of the left hip showed no fracture and hip x-ray of the pelvis showed displaced fracture of the right pubis that was done on 09/19/2017. C. Pain not controlled. Patient is resistant to any movement due to the pain in that hip. No other site of source of the pain can be identified as of 09/20. 2. Generalized weakness, complicated by gait abnormality. A. Secondary to the pubic symphysis fracture. B. Pain is not permitting any advancement of activity. She is most comfortable just flat in bed . 3. Leukocytosis. A. Resolved. B. Etiology probably secondary to stress from the fracture and the falls causing increased bebeto gination. 4. Alzheimer's dementia. 5. Expressive aphasia. 6. Hypertension. 7. Hypothyroidism. 8. Chronic kidney disease. 9. Dehydration, resolved. 10. Urinary retention. A. 1400 mL residual with placement of catheter on the evening of 09/10/2017. B. Catheter removed on 09/13/2017 per request of the patient. The patient was unable to void, ca theter replaced and 475 mL residual as of 09/14/2017. 11. Urinary tract infection. A. Urinalysis suspicious of urinary tract infection done on the evening of 09/10/2017. B. Urine culture had less than 10,000 colony count of mixed skin isaac, no evidence of an infect ion. 12. Anorexia. A. Possibly related to the Aricept. B. Improved as of 09/18/2017. 13. Depression. PLAN: We will stop the tramadol since this is not effective. We will leave the patient at bed rest and we will start her on Fentanyl patch 12 mg every 72 hours. We will add hydrocodone 5/325, 1-2 yogesh ry 4 hours as needed for breakthrough pain. We will place her on MiraLax for help with the anticipat ed constipation from the narcotics. We will try patient on a pelvic binder to see if this affords an y assistance.
[2017-09-20] MEDS: Mirtazapine 15 MG TAB PO SCH (21:35)
[2017-09-21] MEDS: Levothyroxine Sodium 75 MCG TAB PO SCH (05:11)
[2017-09-21 05:51] LABS: #Lymphocytes 0.9 thou/uL (1.20-3.40); #Monocytes 0.5 thou/uL (0.11-0.59); #Neutrophils 6.9 thou/uL (1.40-6.50); %Basophils 0.5 % (0.0-1.0); %Eosinophils 0.1 % (0.0-10.0); %Lymphocytes 11.3 % (21.0-51.0); %Monocytes 5.5 % (0.0-10.0); %Neutrophils 82.7 % (42.0-75.0); Hemoglobin 12.9 g/dL (12.0-16.0); Mean Corpuscular HGB CONC 32.8 g/dL (32.0-36.0); Mean Corpuscular Hemoglobin 29.6 pg (27.0-31.0); Mean Corpuscular Volume 90.2 fl (81.0-99.0); Mean Platelet Volume 7.1 fL (7.4-10.4); Platelet Count 439 thou/uL (130-400); RBC Distribution Width 12.3 % (11.5-14.5); Red Blood Cell (RBC) Count 4.36 mill/uL (4.20-5.40); White Blood Cell (WBC) Count 8.3 thou/uL (4.8-10.8)
[2017-09-21] MEDS: Polyethylene Glycol 3350 17 GM Packet PO SCH (08:24)
[2017-09-21] MEDS: methylPREDNISolone 4 mg Tablet PO SCH ×3 (08:25→17:09)
[2017-09-21] MEDS: Lantiseptic Ointment 130 GM JAR TOP SCH ×2 (08:25→22:14)
[2017-09-21] MEDS: Enoxaparin Sodium 30 MG/0.3 ML SYRINGE SC SCH (08:30)
[2017-09-21] MEDS: Lisinopril 5 MG TAB PO SCH (08:30)
--- NOTE | 2017-09-21 12:18 | PRG ---
DATE OF SERVICE: 09/21/2017 Nurses reported that patient is more comfortable. This morning, she is lying in bed and looks very c omfortable. Her son, Kris said that yesterday she seemed to be more interactive and more comfortabl e. OBJECTIVE: GENERAL: The patient is lying in bed. She is very comfortable and in no distress. VITAL SIGNS: Her temperature is 98.7, pulse 82, respirations 16, O2 sat 98% on room air, blood press ure 196/86, earlier it was 148/70, morning reading pending. LUNGS: Clear. HEART: Regular rate. EXTREMITIES: No edema. The patient has a sheet that has been made into a binder for the pelvic area , but it is very loose and have them try an abdominal binder to apply to this area and see what her t olerance is. Binder may offer her a little bit more comfortable with movement. LABORATORY DATA: Her labs shows hemoglobin and hematocrit of 12.9 and 39.3 with a white cell count 8 ,300 with 83% segs, 11% lymphocytes, and platelet count of 439,000. Her sodium is 140, potassium 4.1 , BUN 18, creatinine 0.79, GFR 69, alkaline phosphatase 248, elevation, probably from the recent pelv ic fracture. ASSESSMENT: 1. Fracture, right side pubic symphysis. A. Presenting with initial fall, which probably result in fracture and then a subsequent fall when she could not support herself on the right leg. B. Repeat x-ray of the left hip showed no fracture and hip x-ray of the pelvis showed displaced fracture of the right pubis that was done on 09/19/2017. C. Pain is better controlled since initiation of the fentanyl and the hydrocodone for breakthrou gh pain on 09/20/2017 as of 09/21/2017. 2. Generalized weakness, complicated by gait abnormality. A. Secondary to the pubic symphysis fracture. B. Pain is not permitting any advancement of activity. She is most comfortable just flat in bed . 3. Leukocytosis. A. Resolved. B. Etiology probably secondary to stress from the fracture and the falls causing increased bebeto gination. 4. Alzheimer's dementia. 5. Expressive aphasia. 6. Hypertension. 7. Hypothyroidism. 8. Chronic kidney disease. 9. Dehydration, resolved. 10. Urinary retention. A. 1400 mL residual with placement of catheter on the evening of 09/10/2017. B. Catheter removed on 09/13/2017 per request of the patient. The patient was unable to void, ca theter replaced and 475 mL residual as of 09/14/2017. 11. Urinary tract infection. A. Urinalysis suspicious of urinary tract infection done on the evening of 09/10/2017. B. Urine culture had less than 10,000 colony count of mixed skin isaac, no evidence of an infect ion. 12. Anorexia. A. Possibly related to the Aricept. B. Improved as of 09/21/2017. 13. Depression. PLAN: Continue present care. Will try an abdominal binder around the pelvic area to see if this andrzej l offer any assistance with comfort with movement. If not, we will stop.
[2017-09-21] MEDS ORDERED: methylPREDNISolone 4 mg Tablet PO SCH (21:00)
[2017-09-21] MEDS: Mirtazapine 15 MG TAB PO SCH (21:13)
[2017-09-21] MEDS: HYDROcodone/Acetaminophen 5/325 mg Tablet PO PRN (22:33)
[2017-09-22] MEDS: Levothyroxine Sodium 75 MCG TAB PO SCH (06:01)
[2017-09-22] MEDS: Enoxaparin Sodium 30 MG/0.3 ML SYRINGE SC SCH (08:50)
[2017-09-22] MEDS: Lisinopril 5 MG TAB PO SCH (08:50)
[2017-09-22] MEDS: Lantiseptic Ointment 130 GM JAR TOP SCH ×2 (08:50→20:49)
[2017-09-22] MEDS: methylPREDNISolone 4 mg Tablet PO SCH ×4 (08:50→20:50)
[2017-09-22] MEDS: Polyethylene Glycol 3350 17 GM Packet PO SCH (08:51)
[2017-09-22] MEDS: HYDROcodone/Acetaminophen 5/325 mg Tablet PO PRN ×2 (11:04→16:57)
[2017-09-22] MEDS: Mirtazapine 15 MG TAB PO SCH (20:50)
[2017-09-23] MEDS: HYDROcodone/Acetaminophen 5/325 mg Tablet PO PRN ×3 (04:23→16:43)
[2017-09-23] MEDS: Levothyroxine Sodium 75 MCG TAB PO SCH (06:32)
[2017-09-23] MEDS: Enoxaparin Sodium 30 MG/0.3 ML SYRINGE SC SCH (08:48)
[2017-09-23] MEDS: Lantiseptic Ointment 130 GM JAR TOP SCH ×2 (08:48→20:21)
[2017-09-23] MEDS: methylPREDNISolone 4 mg Tablet PO SCH ×3 (08:48→16:43)
[2017-09-23] MEDS: Lisinopril 5 MG TAB PO SCH (08:49)
[2017-09-23] MEDS: Polyethylene Glycol 3350 17 GM Packet PO SCH (08:51)
--- NOTE | 2017-09-23 10:41 | PRG ---
DATE OF SERVICE: 09/23/2017 SUBJECTIVE: The patient is lying in bed, seems much more comfortable and smiling, but nurses report she seems to be doing better. OBJECTIVE: The patient is lying in bed and smiling. She appears very comfortable and moving some in bed comfortably. She does have a binder around the pelvic area that is made with a sheet. Her naye l signs show a temperature 97.6, pulse 70, respirations 22, O2 sat 99% on room air, blood pressure 17 3/77, earlier pressure was 151/70 and 148/70. Her lungs are clear. Heart, regular rate. Lower extr emities; no edema. ASSESSMENT: 1. Fracture, right side pubic symphysis. A. Presenting with initial fall, which probably result in fracture and then a subsequent fall when she could not support herself on the right leg. B. Repeat x-ray of the left hip showed no fracture and hip x-ray of the pelvis showed displaced fracture of the right pubis that was done on 09/19/2017. C. The patient seems much more comfortable and is developing a little bit more mobility in the ed as of 09/23/2017. 2. Pain better control allowing patient more bed mobility as of 09/23/2017. 3. Leukocytosis. A. Resolved. B. Etiology probably secondary to stress from the fracture and the falls causing increased bebeto gination. 4. Alzheimer's dementia. 5. Expressive aphasia. 6. Hypertension. 7. Hypothyroidism. 8. Chronic kidney disease. 9. Dehydration, resolved. 10. Urinary retention. A. 1400 mL residual with placement of catheter on the evening of 09/10/2017. B. Catheter removed on 09/13/2017 per request of the patient. The patient was unable to void, ca theter replaced and 475 mL residual as of 09/14/2017. 11. Urinary tract infection. A. Urinalysis suspicious of urinary tract infection done on the evening of 09/10/2017. B. Urine culture had less than 10,000 colony count of mixed skin isaac, no evidence of an infect ion. 12. Anorexia. A. Possibly related to the Aricept. B. Improved as of 09/23/2017. 13. Depression. PLAN: Overall, the patient is doing better. She seemed much more comfortable. She is developing wa rm bed mobility and as this progresses will eventually be able to start trying to let her sit up on t he side of the bed and then advance her back to a chair. Once she tolerates this could then again tr y ambulation. This will be probably a very slow progress.
[2017-09-23] MEDS: Mirtazapine 15 MG TAB PO SCH (20:21)
[2017-09-24] MEDS: Levothyroxine Sodium 75 MCG TAB PO SCH (05:01)
[2017-09-24] MEDS: methylPREDNISolone 4 mg Tablet PO SCH ×2 (09:32→17:22)
[2017-09-24] MEDS: Lisinopril 5 MG TAB PO SCH (09:32)
[2017-09-24] MEDS: Enoxaparin Sodium 30 MG/0.3 ML SYRINGE SC SCH (09:33)
[2017-09-24] MEDS: Polyethylene Glycol 3350 17 GM Packet PO SCH (09:35)
[2017-09-24] MEDS: Lantiseptic Ointment 130 GM JAR TOP SCH ×2 (09:35→20:02)
[2017-09-24] MEDS: HYDROcodone/Acetaminophen 5/325 mg Tablet PO PRN (10:54)
[2017-09-24] MEDS: Mirtazapine 15 MG TAB PO SCH (20:00)
[2017-09-25] MEDS: HYDROcodone/Acetaminophen 5/325 mg Tablet PO PRN ×3 (04:23→19:13)
[2017-09-25] MEDS: Levothyroxine Sodium 75 MCG TAB PO SCH (05:22)
[2017-09-25] MEDS ORDERED: methylPREDNISolone 4 mg Tablet PO SCH (08:00)
[2017-09-25] MEDS: Polyethylene Glycol 3350 17 GM Packet PO SCH (08:16)
[2017-09-25] MEDS: Lisinopril 5 MG TAB PO SCH (08:16)
[2017-09-25] MEDS: Lantiseptic Ointment 130 GM JAR TOP SCH ×2 (08:17→19:15)
[2017-09-25] MEDS: Enoxaparin Sodium 30 MG/0.3 ML SYRINGE SC SCH (08:17)
--- NOTE | 2017-09-25 10:33 | PRG ---
DATE OF SERVICE: 09/25/2017 SUBJECTIVE: The patient is up in a Heydi chair with the head elevated. She is a little uncomfortable . OBJECTIVE: VITAL SIGNS: Show a temperature 98.1, pulse 80, respirations 16, O2 sat 99%, blood pressure 142/62. LUNGS: Clear. HEART: Regular rate. LOWER EXTREMITIES: No edema. ASSESSMENT: 1. Fracture, right side pubic symphysis. A. Presenting with initial fall, which probably result in fracture and then a subsequent fall when she could not support herself on the right leg. B. Repeat x-ray of the left hip showed no fracture and hip x-ray of the pelvis showed displaced fracture of the right pubis that was done on 09/19/2017. C. Patient most comfortable in bed. I have started trying to get her up for limited periods in a Heydi chair as of 09/25/2017. 2. Leukocytosis. A. Resolved. B. Etiology probably secondary to stress from the fracture and the falls causing increased bebeto gination. 3. Alzheimer's dementia. 4. Expressive aphasia. 5. Hypertension. 6. Hypothyroidism. 7. Chronic kidney disease. 8. Dehydration, resolved. 9. Urinary retention. A. 1400 mL residual with placement of catheter on the evening of 09/10/2017. B. Catheter removed on 09/13/2017 per request of the patient. The patient was unable to void, ca theter replaced and 475 mL residual as of 09/14/2017. 10. Urinary tract infection. A. Urinalysis suspicious of urinary tract infection done on the evening of 09/10/2017. B. Urine culture had less than 10,000 colony count of mixed skin isaac, no evidence of an infect ion. 11. Anorexia. A. Possibly related to the Aricept. B. Improved as of 09/23/2017. 12. Depression. PLAN: Continue present care, continual gradual slow progression of time out of bed within her tolera nce.
[2017-09-25] MEDS: Mirtazapine 15 MG TAB PO SCH (19:14)
[2017-09-26] MEDS: Levothyroxine Sodium 75 MCG TAB PO SCH (05:27)
[2017-09-26] MEDS: HYDROcodone/Acetaminophen 5/325 mg Tablet PO PRN ×3 (07:47→20:10)
[2017-09-26] MEDS: Lisinopril 5 MG TAB PO SCH (08:57)
[2017-09-26] MEDS: Enoxaparin Sodium 30 MG/0.3 ML SYRINGE SC SCH (08:57)
[2017-09-26] MEDS: Lantiseptic Ointment 130 GM JAR TOP SCH ×2 (08:57→20:10)
[2017-09-26] MEDS: Polyethylene Glycol 3350 17 GM Packet PO SCH (08:57)
[2017-09-26] MEDS: Mirtazapine 15 MG TAB PO SCH (20:10)
[2017-09-27] MEDS: Levothyroxine Sodium 75 MCG TAB PO SCH (06:03)
[2017-09-27] MEDS: HYDROcodone/Acetaminophen 5/325 mg Tablet PO PRN ×3 (07:14→20:08)
[2017-09-27] MEDS: Lisinopril 5 MG TAB PO SCH (08:41)
[2017-09-27] MEDS: Enoxaparin Sodium 30 MG/0.3 ML SYRINGE SC SCH (08:46)
[2017-09-27] MEDS: Polyethylene Glycol 3350 17 GM Packet PO SCH (08:47)
[2017-09-27] MEDS: Lantiseptic Ointment 130 GM JAR TOP SCH ×2 (08:47→20:04)
--- NOTE | 2017-09-27 14:46 | PRG ---
DATE OF SERVICE: 09/27/2017 SUBJECTIVE: Nurses said patient is doing better. Hydrocodone seems to work well for her pain. She is getting up more and she did get up to shower. She can even take a few steps. Overall, she has be en making some progress. OBJECTIVE: GENERAL: The patient is sitting up in her bed and having breakfast. She is alert and appears comfor table. VITAL SIGNS: Her temperature 97.5, pulse 62, respirations 22, O2 sat 94% on room air, blood pressure 148/68. LUNGS: Clear. HEART: Regular rate. EXTREMITIES: No edema. ASSESSMENT: 1. Fracture, right side pubic symphysis. A. Presenting with initial fall, which probably result in fracture and then a subsequent fall when she could not support herself on the right leg. B. Repeat x-ray of the left hip showed no fracture and hip x-ray of the pelvis showed displaced fracture of the right pubis that was done on 09/19/2017. C. Pain is much better controlled and she is beginning to tolerate periods up in a chair and yogesh n able to take just very few limited steps as of 09/27/2017. 2. Leukocytosis. A. Resolved. B. Etiology probably secondary to stress from the fracture and the falls causing increased bebeto gination. 3. Alzheimer's dementia. 4. Expressive aphasia. 5. Hypertension. 6. Hypothyroidism. 7. Chronic kidney disease. 8. Dehydration, resolved. 9. Urinary retention. A. 1400 mL residual with placement of catheter on the evening of 09/10/2017. B. Catheter removed on 09/13/2017 per request of the patient. The patient was unable to void, ca theter replaced and 475 mL residual as of 09/14/2017. 10. Urinary tract infection. A. Urinalysis suspicious of urinary tract infection done on the evening of 09/10/2017. B. Urine culture had less than 10,000 colony count of mixed skin isaac, no evidence of an infect ion. 11. Anorexia. A. Possibly related to the Aricept. B. Improved as of 09/27/2017. 12. Depression. PLAN: Gradually progress activities as tolerated. Physical Therapy will continue to work with rafia martinez
[2017-09-27] MEDS: Mirtazapine 15 MG TAB PO SCH (20:04)
[2017-09-28] MEDS: HYDROcodone/Acetaminophen 5/325 mg Tablet PO PRN ×4 (04:23→23:56)
[2017-09-28] MEDS: Levothyroxine Sodium 75 MCG TAB PO SCH (05:46)
[2017-09-28] MEDS: Lisinopril 5 MG TAB PO SCH (08:30)
[2017-09-28] MEDS: Lantiseptic Ointment 130 GM JAR TOP SCH ×2 (08:36→20:51)
[2017-09-28] MEDS: Enoxaparin Sodium 30 MG/0.3 ML SYRINGE SC SCH (08:36)
[2017-09-28] MEDS: Polyethylene Glycol 3350 17 GM Packet PO SCH (08:37)
--- NOTE | 2017-09-28 09:10 | PRG ---
DATE OF SERVICE: 09/28/2017 SUBJECTIVE: The patient is doing much better. She seemed to be very comfortable this morning. She is sitting up in bed. She is smiling and laughing, looks very comfortable. She is eating a good tai akfast. Her son had asked when appropriate to try restarting the donepezil since she is eating good again. OBJECTIVE: The patient is alert, seems very comfortable, eating good. Her temperature is 97.8, puls e 86, respirations 20, O2 sat 100% on room air, blood pressure 150/66. Lungs are clear. Heart, regu lar rate. Extremities, no edema. ASSESSMENT: 1. Fracture, right side pubic symphysis. A. Presenting with initial fall, which probably result in fracture and then a subsequent fall when she could not support herself on the right leg. B. Repeat x-ray of the left hip showed no fracture and hip x-ray of the pelvis showed displaced fracture of the right pubis that was done on 09/19/2017. C. Pain seems to be well controlled as of 09/28/2017. 2. Leukocytosis. A. Resolved. B. Etiology probably secondary to stress from the fracture and the falls causing increased bebeto gination. 3. Alzheimer's dementia. 4. Expressive aphasia. 5. Hypertension. 6. Hypothyroidism. 7. Chronic kidney disease. 8. Dehydration, resolved. 9. Urinary retention. A. 1400 mL residual with placement of catheter on the evening of 09/10/2017. B. Catheter removed on 09/13/2017 per request of the patient. The patient was unable to void, ca theter replaced and 475 mL residual as of 09/14/2017. 10. Urinary tract infection. A. Urinalysis suspicious of urinary tract infection done on the evening of 09/10/2017. B. Urine culture had less than 10,000 colony count of mixed skin isaac, no evidence of an infect ion. 11. Anorexia. A. Possibly related to the Aricept. B. Resolved as of 09/28/2017. 12. Depression. A. Improved as of 09/28/2017. PLAN: Overall the patient is doing better. We will continue present care. If she continues to eat well we will try reintroduction of the Aricept. Nurses had asked for a Dulcolax suppository in the event this was needed. This was ordered.
[2017-09-28] MEDS: Mirtazapine 15 MG TAB PO SCH (20:51)
[2017-09-29] MEDS: Levothyroxine Sodium 75 MCG TAB PO SCH (06:06)
[2017-09-29] MEDS: Polyethylene Glycol 3350 17 GM Packet PO SCH (09:01)
[2017-09-29] MEDS: Lisinopril 5 MG TAB PO SCH (09:02)
[2017-09-29] MEDS: HYDROcodone/Acetaminophen 5/325 mg Tablet PO PRN ×2 (09:03→17:42)
[2017-09-29] MEDS: Enoxaparin Sodium 30 MG/0.3 ML SYRINGE SC SCH (09:03)
[2017-09-29] MEDS: Lantiseptic Ointment 130 GM JAR TOP SCH ×2 (09:10→20:21)
--- NOTE | 2017-09-29 09:53 | PRG ---
DATE OF SERVICE: 09/29/2017 SUBJECTIVE: The nurses said the patient sat up for a while yesterday and she had a good night. OBJECTIVE: The patient is lying in bed, alert, appears comfortable in no distress. Her vital signs show a temperature 98.1, pulse 88, respirations 16, O2 saturation 98%, blood pressure 171/72 last yogesh janice, yesterday earlier it was 150/66, morning reading pending. Lungs clear. Heart, regular rate. Extremities, no edema. ASSESSMENT: 1. Fracture, right side pubic symphysis. A. Presenting with initial fall, which probably result in fracture and then a subsequent fall when she could not support herself on the right leg. B. Repeat x-ray of the left hip showed no fracture and hip x-ray of the pelvis showed displaced fracture of the right pubis that was done on 09/19/2017. C. Pain seems to be well controlled as of 09/29/2017. 2. Leukocytosis. A. Resolved. B. Etiology probably secondary to stress from the fracture and the falls causing increased bebeto gination. 3. Alzheimer's dementia. 4. Expressive aphasia. 5. Hypertension. 6. Hypothyroidism. 7. Chronic kidney disease. 8. Dehydration, resolved. 9. Urinary retention. A. 1400 mL residual with placement of catheter on the evening of 09/10/2017. B. Catheter removed on 09/13/2017 per request of the patient. The patient was unable to void, ca theter replaced and 475 mL residual as of 09/14/2017. 10. Urinary tract infection. A. Urinalysis suspicious of urinary tract infection done on the evening of 09/10/2017. B. Urine culture had less than 10,000 colony count of mixed skin isaac, no evidence of an infect ion. 11. Anorexia. A. Possibly related to the Aricept. B. Resolved as of 09/28/2017. 12. Depression. A. Improved as of 09/28/2017. PLAN: Continue physical therapy. Continue present medicines.
[2017-09-29] MEDS: Mirtazapine 15 MG TAB PO SCH (20:21)
[2017-09-30] MEDS: Levothyroxine Sodium 75 MCG TAB PO SCH (06:02)
[2017-09-30] MEDS: Lisinopril 5 MG TAB PO SCH (08:22)
[2017-09-30] MEDS: Polyethylene Glycol 3350 17 GM Packet PO SCH (08:22)
[2017-09-30] MEDS: Bisacodyl 10 MG SUPP PR PRN (08:23)
[2017-09-30] MEDS: Enoxaparin Sodium 30 MG/0.3 ML SYRINGE SC SCH (08:23)
[2017-09-30] MEDS: Lantiseptic Ointment 130 GM JAR TOP SCH ×2 (08:23→20:05)
[2017-09-30] MEDS: HYDROcodone/Acetaminophen 5/325 mg Tablet PO PRN (08:26)
--- NOTE | 2017-09-30 14:33 | PRG ---
DATE OF SERVICE: 09/30/2017 SUBJECTIVE: The patient has been doing better. Nurses said she is getting up easier, sitting up in a chair. She is able to help stand and pivot on transfer. She is requiring moderate assistance with the transfer. OBJECTIVE: The patient is lying in bed, is smiling, appears very comfortable. Temp 98.7, pulse 85, respirations 18, O2 sat 96% on room air, blood pressure 144/65. Lungs are clear. Heart, regular rat e. Extremities, no edema. ASSESSMENT: 1. Fracture, right side pubic symphysis. A. Presenting with initial fall, which probably result in fracture and then a subsequent fall when she could not support herself on the right leg. B. Repeat x-ray of the left hip showed no fracture and hip x-ray of the pelvis showed displaced fracture of the right pubis that was done on 09/19/2017. C. Pain controlled. The patient is transferring easier and tolerating sitting up in the chair a s of 09/30/2017. 2. Leukocytosis. A. Resolved. B. Etiology probably secondary to stress from the fracture and the falls causing increased bebeto gination. 3. Alzheimer's dementia. 4. Expressive aphasia. 5. Hypertension. 6. Hypothyroidism. 7. Chronic kidney disease. 8. Dehydration, resolved. 9. Urinary retention. A. 1400 mL residual with placement of catheter on the evening of 09/10/2017. B. Catheter removed on 09/13/2017 per request of the patient. The patient was unable to void, ca theter replaced and 475 mL residual as of 09/14/2017. 10. Urinary tract infection. A. Urinalysis suspicious of urinary tract infection done on the evening of 09/10/2017. B. Urine culture had less than 10,000 colony count of mixed skin isaac, no evidence of an infect ion. 11. Anorexia. A. Possibly related to the Aricept. B. Resolved as of 09/28/2017. 12. Depression. A. Improved as of 09/30/2017. PLAN: Will continue present care. Continue physical therapy.
[2017-09-30] MEDS: Mirtazapine 15 MG TAB PO SCH (20:04)
[2017-10-01] MEDS: Levothyroxine Sodium 75 MCG TAB PO SCH (05:23)
[2017-10-01] MEDS: Lisinopril 5 MG TAB PO SCH (09:14)
[2017-10-01] MEDS: Enoxaparin Sodium 30 MG/0.3 ML SYRINGE SC SCH (09:15)
[2017-10-01] MEDS: Lantiseptic Ointment 130 GM JAR TOP SCH ×2 (09:15→20:58)
[2017-10-01] MEDS: Polyethylene Glycol 3350 17 GM Packet PO SCH (09:16)
[2017-10-01] MEDS: HYDROcodone/Acetaminophen 5/325 mg Tablet PO PRN ×2 (11:18→16:32)
[2017-10-01] MEDS: Mirtazapine 15 MG TAB PO SCH (20:58)
[2017-10-02] MEDS: HYDROcodone/Acetaminophen 5/325 mg Tablet PO PRN ×3 (00:59→20:48)
[2017-10-02] MEDS: Levothyroxine Sodium 75 MCG TAB PO SCH (05:38)
[2017-10-02] MEDS: Enoxaparin Sodium 30 MG/0.3 ML SYRINGE SC SCH (08:41)
[2017-10-02] MEDS: Polyethylene Glycol 3350 17 GM Packet PO SCH (08:41)
[2017-10-02] MEDS: Lisinopril 5 MG TAB PO SCH (08:41)
[2017-10-02] MEDS: Lantiseptic Ointment 130 GM JAR TOP SCH ×2 (08:42→21:12)
--- NOTE | 2017-10-02 16:05 | PRG ---
DATE OF SERVICE: 10/02/2017 SUBJECTIVE: The patient has been doing a little better. She is eating a little better. This mornin g, she did not indicate any problems. Nurses report no problems. OBJECTIVE: GENERAL: The patient lying in bed. She is awake and appears comfortable and in no distress. VITAL SIGNS: Shows a temperature of 97.6, pulse 84, blood pressure 140/62, respirations 20. LUNGS: Clear. HEART: Regular rate. EXTREMITIES: No edema. ASSESSMENT: 1. Fracture, right side pubic symphysis. A. Presenting with initial fall, which probably result in fracture and then a subsequent fall when she could not support herself on the right leg. B. Repeat x-ray of the left hip showed no fracture and hip x-ray of the pelvis showed displaced fracture of the right pubis that was done on 09/19/2017. C. Pain controlled. The patient is transferring easier and tolerating sitting up in the chair a s of 10/02/2017. 2. Leukocytosis. A. Resolved. B. Etiology probably secondary to stress from the fracture and the falls causing increased bebeto gination. 3. Alzheimer's dementia. 4. Expressive aphasia. 5. Hypertension. 6. Hypothyroidism. 7. Chronic kidney disease. 8. Dehydration, resolved. 9. Urinary retention. A. 1400 mL residual with placement of catheter on the evening of 09/10/2017. B. Catheter removed on 09/13/2017 per request of the patient. The patient was unable to void, ca theter replaced and 475 mL residual as of 09/14/2017. 10. Urinary tract infection. A. Urinalysis suspicious of urinary tract infection done on the evening of 09/10/2017. B. Urine culture had less than 10,000 colony count of mixed skin isaac, no evidence of an infect ion. 11. Anorexia. A. Possibly related to the Aricept. B. Resolved as of 09/28/2017. 12. Depression. A. Improved as of 10/02/2017. PLAN: Overall, patient appears a little better. We will continue present care. Continue physical t herapy.
[2017-10-02] MEDS: Mirtazapine 15 MG TAB PO SCH (20:49)
[2017-10-03] MEDS: Levothyroxine Sodium 75 MCG TAB PO SCH (05:46)
[2017-10-03] MEDS: HYDROcodone/Acetaminophen 5/325 mg Tablet PO PRN ×2 (08:23→23:45)
[2017-10-03] MEDS: Polyethylene Glycol 3350 17 GM Packet PO SCH (08:24)
[2017-10-03] MEDS: Lisinopril 5 MG TAB PO SCH (08:25)
[2017-10-03] MEDS: Lantiseptic Ointment 130 GM JAR TOP SCH ×2 (08:25→23:50)
[2017-10-03] MEDS: Enoxaparin Sodium 30 MG/0.3 ML SYRINGE SC SCH (08:26)
[2017-10-03] MEDS: Mirtazapine 15 MG TAB PO SCH (20:39)
[2017-10-04] MEDS: Levothyroxine Sodium 75 MCG TAB PO SCH (05:53)
[2017-10-04] MEDS: HYDROcodone/Acetaminophen 5/325 mg Tablet PO PRN ×2 (08:16→19:14)
[2017-10-04] MEDS: Lisinopril 5 MG TAB PO SCH (08:16)
[2017-10-04] MEDS: Lantiseptic Ointment 130 GM JAR TOP SCH ×2 (08:17→19:13)
[2017-10-04] MEDS: Enoxaparin Sodium 30 MG/0.3 ML SYRINGE SC SCH (08:17)
[2017-10-04] MEDS: Polyethylene Glycol 3350 17 GM Packet PO SCH (08:17)
--- NOTE | 2017-10-04 17:33 | PRG ---
DATE OF SERVICE: 10/04/2017 SUBJECTIVE: The patient's son, Kris is with her this morning. He said she is eating better this mo rning. She is sitting up in bed and eating her breakfast. She is talk and but hard to understand wh at she says with her severe expressive aphasia. She looks very comfortable. OBJECTIVE: VITAL SIGNS: Her vital signs shows temperature 97.6, pulse 79, respirations 20, O2 saturation 98%, a nd blood pressure 140/62. LUNGS: Clear. HEART: Regular rate. EXTREMITIES: No edema. ASSESSMENT: 1. Fracture, right side pubic symphysis. A. Presenting with initial fall, which probably result in fracture and then a subsequent fall when she could not support herself on the right leg. B. Repeat x-ray of the left hip showed no fracture and hip x-ray of the pelvis showed displaced fracture of the right pubis that was done on 09/19/2017. C. Pain controlled. Patient transferring easer sitting up in a chair for longer periods and has tolerated showers as of 10/04/2017. 2. Leukocytosis. A. Resolved. B. Etiology probably secondary to stress from the fracture and the falls causing increased bebeto gination. 3. Alzheimer's dementia. 4. Expressive aphasia. 5. Hypertension. 6. Hypothyroidism. 7. Chronic kidney disease. 8. Dehydration, resolved. 9. Urinary retention. A. 1400 mL residual with placement of catheter on the evening of 09/10/2017. B. Catheter removed on 09/13/2017 per request of the patient. The patient was unable to void, ca theter replaced and 475 mL residual as of 09/14/2017. 10. Urinary tract infection. A. Urinalysis suspicious of urinary tract infection done on the evening of 09/10/2017. B. Urine culture had less than 10,000 colony count of mixed skin isaac, no evidence of an infect ion. 11. Anorexia. A. Possibly related to the Aricept. B. Resolved as of 09/28/2017. 12. Depression. A. Improved as of 10/04/2017. Overall, patient is doing much better. She is no longer needing any type of pelvic binder. She see med much more comfortable and eating better. I feel like this week should be a good week for her as physical therapy will be able to work with her more.
[2017-10-04] MEDS: Mirtazapine 15 MG TAB PO SCH (19:15)
[2017-10-05] MEDS: Levothyroxine Sodium 75 MCG TAB PO SCH (05:03)
[2017-10-05] MEDS: HYDROcodone/Acetaminophen 5/325 mg Tablet PO PRN ×3 (07:45→20:23)
[2017-10-05] MEDS: Lisinopril 5 MG TAB PO SCH (07:50)
[2017-10-05] MEDS: Lantiseptic Ointment 130 GM JAR TOP SCH ×2 (07:51→20:23)
[2017-10-05] MEDS: Enoxaparin Sodium 30 MG/0.3 ML SYRINGE SC SCH (07:52)
[2017-10-05] MEDS: Polyethylene Glycol 3350 17 GM Packet PO SCH (08:24)
[2017-10-05] MEDS: Mirtazapine 15 MG TAB PO SCH (20:24)
[2017-10-06] MEDS: Levothyroxine Sodium 75 MCG TAB PO SCH (05:13)
[2017-10-06] MEDS: HYDROcodone/Acetaminophen 5/325 mg Tablet PO PRN ×2 (07:36→17:17)
[2017-10-06] MEDS: Enoxaparin Sodium 30 MG/0.3 ML SYRINGE SC SCH (08:04)
[2017-10-06] MEDS: Lantiseptic Ointment 130 GM JAR TOP SCH ×2 (08:04→20:10)
[2017-10-06] MEDS: Lisinopril 5 MG TAB PO SCH (08:04)
[2017-10-06] MEDS: Polyethylene Glycol 3350 17 GM Packet PO SCH (08:05)
--- NOTE | 2017-10-06 09:39 | PRG ---
DATE OF SERVICE: 10/06/2017 SUBJECTIVE: The patient has been doing better. She is eating better. OBJECTIVE: The patient lying in bed, appears very comfortable, in no distress. Her temp is 97.2, pu lse 97, blood pressure 140/62, respirations 16, O2 sat 96%. Lungs clear. Heart, regular rate. Lowe r extremities have no edema. ASSESSMENT: 1. Fracture, right side pubic symphysis. A. Presenting with initial fall, which probably result in fracture and then a subsequent fall when she could not support herself on the right leg. B. Repeat x-ray of the left hip showed no fracture and hip x-ray of the pelvis showed displaced fracture of the right pubis that was done on 09/19/2017. C. Improved. Pain well controlled. Activities are expanding as of 10/06/2017. 2. Leukocytosis. A. Resolved. B. Etiology probably secondary to stress from the fracture and the falls causing increased bebeto gination. 3. Alzheimer's dementia. 4. Expressive aphasia. 5. Hypertension. 6. Hypothyroidism. 7. Chronic kidney disease. 8. Dehydration, resolved. 9. Urinary retention. A. 1400 mL residual with placement of catheter on the evening of 09/10/2017. B. Catheter removed on 09/13/2017 per request of the patient. The patient was unable to void, ca theter replaced and 475 mL residual as of 09/14/2017. 10. Urinary tract infection. A. Urinalysis suspicious of urinary tract infection done on the evening of 09/10/2017. B. Urine culture had less than 10,000 colony count of mixed skin isaac, no evidence of an infect ion. 11. Anorexia. A. Possibly related to the Aricept. B. Resolved as of 09/28/2017. 12. Depression. A. Improved as of 10/06/2017. PLAN: The patient is making good progress with her pain so much better. Physical therapy will be ab le to work more with her and hopefully get her back to where she can ambulate again.
[2017-10-06] MEDS: Mirtazapine 15 MG TAB PO SCH (20:09)
[2017-10-07] MEDS: HYDROcodone/Acetaminophen 5/325 mg Tablet PO PRN (03:13)
[2017-10-07] MEDS: Levothyroxine Sodium 75 MCG TAB PO SCH (04:58)
[2017-10-07] MEDS: Enoxaparin Sodium 30 MG/0.3 ML SYRINGE SC SCH (09:15)
[2017-10-07] MEDS: Polyethylene Glycol 3350 17 GM Packet PO SCH (09:15)
[2017-10-07] MEDS: Lantiseptic Ointment 130 GM JAR TOP SCH ×2 (09:16→21:28)
[2017-10-07] MEDS: Lisinopril 5 MG TAB PO SCH (09:17)
[2017-10-07] MEDS ORDERED: Lorazepam 1 MG TAB PO PRN (12:24)
[2017-10-07] MEDS: Donepezil HCl 10 MG TAB PO SCH (21:27)
[2017-10-07] MEDS: Mirtazapine 15 MG TAB PO SCH (21:28)
[2017-10-08] MEDS: Levothyroxine Sodium 75 MCG TAB PO SCH (06:28)
[2017-10-08] MEDS ORDERED: Lorazepam 1 MG TAB PO PRN (08:27)
[2017-10-08] MEDS: Enoxaparin Sodium 30 MG/0.3 ML SYRINGE SC SCH (08:58)
[2017-10-08] MEDS: Lantiseptic Ointment 130 GM JAR TOP SCH ×2 (08:59→20:53)
[2017-10-08] MEDS: Lisinopril 5 MG TAB PO SCH (09:00)
[2017-10-08] MEDS: Polyethylene Glycol 3350 17 GM Packet PO SCH (09:01)
--- NOTE | 2017-10-08 11:11 | PRG ---
DATE OF SERVICE: 10/08/2017 SUBJECTIVE: Yesterday the patient seemed very agitated and just could not get settled down. Eventua lly she required an Ativan 1 mg p.o. This did help, but she seemed to be a bit over sedated for a wh ile afterwards. We will reduce this just to a 0.5 mg to use twice a day only if needed. This has no t had to be repeated. The reason for the agitation is not known. I visited with her son today and tristian gómez said occasionally at home she gets like this and usually it passes. OBJECTIVE: The patient is lying in bed, looks very comfortable. Her temperature is 98, pulse 110, r espirations 20, O2 saturation 97%, blood pressure 185/77. Lungs are clear. Heart, regular rate. Ex tremities, no edema. ASSESSMENT: 1. Fracture of the right side pubic symphysis secondary to a fall on 09/07/2017. A. Presenting with initial fall, which probably result in fracture and then a subsequent fall when she could not support herself on the right leg. B. Repeat x-ray of the left hip showed no fracture and hip x-ray of the pelvis showed displaced fracture of the right pubis that was done on 09/19/2017. C. Improved, pain well controlled. Activity has continued to increase as of 10/08/2017. 2. Leukocytosis. A. Resolved. B. Etiology probably secondary to stress from the fracture and the falls causing increased bebeto gination. 3. Alzheimer's dementia. A. Episode of agitation on 10/07/2017 requiring Ativan. Suspect secondary to frustration with l seng hospitalization and inability to communicate due to her severe expressive aphasia. improved as of 10/08/2017. 4. Expressive aphasia. 5. Hypertension. 6. Hypothyroidism. 7. Chronic kidney disease. 8. Dehydration, resolved. 9. Urinary retention. A. 1400 mL residual with placement of catheter on the evening of 09/10/2017. B. Catheter removed on 09/13/2017 per request of the patient. The patient was unable to void, ca theter replaced and 475 mL residual as of 09/14/2017. 10. Urinary tract infection. A. Urinalysis suspicious of urinary tract infection done on the evening of 09/10/2017. B. Urine culture had less than 10,000 colony count of mixed skin isaac, no evidence of an infect ion. 11. Anorexia. A. Possibly related to the Aricept. B. Resolved as of 09/28/2017. 12. Depression. A. Improved as of 10/06/2017. PLAN: The patient seems much better than yesterday. The reason for the agitation yesterday is not k nown, possible this was just a combination of a prolonged hospitalization, possible effect of medicat ion and the frustration from the inability to express herself from the severe expressive aphasia. Wi ll reduce the Ativan to just 0.5 mg b.i.d. if needed. I have restarted the donepezil, will reduce t he hydrocodone to just one every 4 hours only if needed, will first use the Tylenol. We will see if the patient can do without the fentanyl in the event this contributed to her agitation.
[2017-10-08] MEDS: Mirtazapine 15 MG TAB PO SCH (20:52)
[2017-10-08] MEDS: Donepezil HCl 10 MG TAB PO SCH (20:53)
[2017-10-09] MEDS: HYDROcodone/Acetaminophen 5/325 mg Tablet PO PRN ×2 (05:01→21:38)
[2017-10-09] MEDS: Levothyroxine Sodium 75 MCG TAB PO SCH (05:01)
[2017-10-09] MEDS: Enoxaparin Sodium 30 MG/0.3 ML SYRINGE SC SCH (08:48)
[2017-10-09] MEDS: Lisinopril 5 MG TAB PO SCH (08:48)
[2017-10-09] MEDS: Lantiseptic Ointment 130 GM JAR TOP SCH ×2 (08:49→21:41)
[2017-10-09] MEDS: Polyethylene Glycol 3350 17 GM Packet PO SCH (08:50)
--- NOTE | 2017-10-09 11:29 | PRG ---
DATE OF SERVICE: 10/09/2017 SUBJECTIVE: The patient is having a better day. She is up in a bedside chair. Her son, Kris, is w ith her and said she ate a good breakfast. She seemed very comfortable. OBJECTIVE: The patient is sitting up in a bedside chair. She seems comfortable. Her temperature is 98.6, pulse 100, respirations 18, O2 saturation 98% on room air, blood pressure 167/84. Lungs are c lear. Heart, regular rate. Extremities; there is no edema. Yesterday, the patient was able to walk with therapy 10 feet with a rolling walker and maximum assistance. She is still requiring moderate to maximum assistance with any transfers. ASSESSMENT: 1. Fracture of the right side pubic symphysis secondary to a fall on 09/07/2017. A. Presenting with initial fall, which probably result in fracture and then a subsequent fall when she could not support herself on the right leg. B. Repeat x-ray of the left hip showed no fracture and hip x-ray of the pelvis showed displaced fracture of the right pubis that was done on 09/19/2017. C. Improved. Pain controlled. Patient tolerating sitting up in a chair. requires maximum assi stance transferring and is now walking up to 10 feet with a rolling walker and maximum assistance as of 10/09/2017. 2. Leukocytosis. A. Resolved. B. Etiology probably secondary to stress from the fracture and the falls causing increased bebeto gination. 3. Alzheimer's dementia. A. Episode of agitation on 10/07/2017 requiring Ativan. Suspect secondary to frustration with l seng hospitalization and inability to communicate due to her severe expressive aphasia. improved as of 10/08/2017. 4. Expressive aphasia. 5. Hypertension. 6. Hypothyroidism. 7. Chronic kidney disease. 8. Dehydration, resolved. 9. Urinary retention. A. 1400 mL residual with placement of catheter on the evening of 09/10/2017. B. Catheter removed on 09/13/2017 per request of the patient. The patient was unable to void, ca theter replaced and 475 mL residual as of 09/14/2017. 10. Urinary tract infection. A. Urinalysis suspicious of urinary tract infection done on the evening of 09/10/2017. B. Urine culture had less than 10,000 colony count of mixed skin isaac, no evidence of an infect ion. 11. Anorexia. A. Possibly related to the Aricept. B. Resolved as of 09/28/2017. 12. Depression. A. Improved as of 10/09/2017. PLAN: Continue physical therapy. When the patient is a little stronger we will remove catheter.
[2017-10-09] MEDS: Donepezil HCl 10 MG TAB PO SCH (21:37)
[2017-10-09] MEDS: Mirtazapine 15 MG TAB PO SCH (21:39)
[2017-10-10] MEDS: Levothyroxine Sodium 75 MCG TAB PO SCH (05:54)
[2017-10-10] MEDS: HYDROcodone/Acetaminophen 5/325 mg Tablet PO PRN ×3 (05:55→17:56)
[2017-10-10] MEDS: Lisinopril 5 MG TAB PO SCH (07:59)
[2017-10-10] MEDS: Polyethylene Glycol 3350 17 GM Packet PO SCH (07:59)
[2017-10-10] MEDS: Lantiseptic Ointment 130 GM JAR TOP SCH ×2 (07:59→20:30)
[2017-10-10] MEDS: Enoxaparin Sodium 30 MG/0.3 ML SYRINGE SC SCH (08:00)
[2017-10-10] MEDS: Donepezil HCl 10 MG TAB PO SCH (20:30)
[2017-10-10] MEDS: Mirtazapine 15 MG TAB PO SCH (20:31)
[2017-10-11] MEDS: HYDROcodone/Acetaminophen 5/325 mg Tablet PO PRN ×4 (04:16→22:57)
[2017-10-11] MEDS: Levothyroxine Sodium 75 MCG TAB PO SCH (04:58)
[2017-10-11] MEDS: Lisinopril 5 MG TAB PO SCH (08:40)
[2017-10-11] MEDS: Enoxaparin Sodium 30 MG/0.3 ML SYRINGE SC SCH (08:40)
[2017-10-11] MEDS: Polyethylene Glycol 3350 17 GM Packet PO SCH (08:41)
[2017-10-11] MEDS: Lantiseptic Ointment 130 GM JAR TOP SCH ×2 (08:41→21:18)
[2017-10-11] MEDS ORDERED: Furosemide 40 MG/4 ML VIAL ONE (17:29)
[2017-10-11] MEDS: Mirtazapine 15 MG TAB PO SCH (21:18)
[2017-10-11] MEDS: Donepezil HCl 10 MG TAB PO SCH (21:18)
[2017-10-12] MEDS: HYDROcodone/Acetaminophen 5/325 mg Tablet PO PRN (06:10)
[2017-10-12] MEDS: Levothyroxine Sodium 75 MCG TAB PO SCH (06:10)
--- NOTE | 2017-10-12 09:06 | PRG ---
DATE OF SERVICE: 10/12/2017 SUBJECTIVE: The patient is doing better. The nurses report no change. OBJECTIVE: The patient lying in her bed. She is smiling, looks very comfortable and calm. Her temp erature is 97.6, pulse 99, respirations 22, O2 sat 96% on room air, blood pressure 138/73. Lungs; cl ear. Heart, regular rate. Extremities; no edema, no bruising around the hip area and compression of the pelvic bone creates no pain. ASSESSMENT: 1. Fracture of the right side pubic symphysis secondary to a fall on 09/07/2017. A. Presenting with initial fall, which probably result in fracture and then a subsequent fall when she could not support herself on the right leg. B. Repeat x-ray of the left hip showed no fracture and hip x-ray of the pelvis showed displaced fracture of the right pubis that was done on 09/19/2017. C. Improved pain control. Patient tolerating sitting and walking short distances as of 10/12/19 18. 2. Leukocytosis. A. Resolved. B. Etiology probably secondary to stress from the fracture and the falls causing increased bebeto gination. 3. Alzheimer's dementia. A. Episode of agitation on 10/07/2017 requiring Ativan. Suspect secondary to frustration with l seng hospitalization and inability to communicate due to her severe expressive aphasia. improved as of 10/08/2017. 4. Expressive aphasia. 5. Hypertension. 6. Hypothyroidism. 7. Chronic kidney disease. 8. Dehydration, resolved. 9. Urinary retention. A. 1400 mL residual with placement of catheter on the evening of 09/10/2017. B. Catheter removed on 09/13/2017 per request of the patient. The patient was unable to void, ca theter replaced and 475 mL residual as of 09/14/2017. 10. Urinary tract infection. A. Urinalysis suspicious of urinary tract infection done on the evening of 09/10/2017. B. Urine culture had less than 10,000 colony count of mixed skin isaac, no evidence of an infect ion. 11. Anorexia. A. Possibly related to the Aricept. B. Resolved as of 09/28/2017. 12. Depression. A. Improved as of 10/12/2017. PLAN: Continue physical therapy.
[2017-10-12] MEDS: Lisinopril 5 MG TAB PO SCH (09:54)
[2017-10-12] MEDS: Enoxaparin Sodium 30 MG/0.3 ML SYRINGE SC SCH (09:54)
[2017-10-12] MEDS: Polyethylene Glycol 3350 17 GM Packet PO SCH (09:55)
[2017-10-12] MEDS: Lantiseptic Ointment 130 GM JAR TOP SCH ×2 (09:56→20:37)
[2017-10-12] MEDS: Mirtazapine 15 MG TAB PO SCH (20:30)
[2017-10-12] MEDS: Donepezil HCl 10 MG TAB PO SCH (20:30)
[2017-10-12] MEDS: Lorazepam 1 MG TAB PO PRN (20:40)
[2017-10-13] MEDS: HYDROcodone/Acetaminophen 5/325 mg Tablet PO PRN ×2 (01:07→19:48)
[2017-10-13] MEDS: Levothyroxine Sodium 75 MCG TAB PO SCH (05:50)
[2017-10-13] MEDS: Lisinopril 5 MG TAB PO SCH (08:20)
[2017-10-13] MEDS: Polyethylene Glycol 3350 17 GM Packet PO SCH (08:20)
[2017-10-13] MEDS: Lantiseptic Ointment 130 GM JAR TOP SCH ×2 (08:21→20:09)
[2017-10-13] MEDS: Enoxaparin Sodium 30 MG/0.3 ML SYRINGE SC SCH (08:21)
[2017-10-13] MEDS: Mirtazapine 15 MG TAB PO SCH (20:08)
[2017-10-13] MEDS: Donepezil HCl 10 MG TAB PO SCH (20:08)
[2017-10-13] MEDS: Lorazepam 1 MG TAB PO PRN (20:53)
[2017-10-14] MEDS: Levothyroxine Sodium 75 MCG TAB PO SCH (05:34)
[2017-10-14] MEDS: HYDROcodone/Acetaminophen 5/325 mg Tablet PO PRN ×2 (07:39→15:12)
[2017-10-14] MEDS: Lisinopril 5 MG TAB PO SCH (08:23)
[2017-10-14] MEDS: Enoxaparin Sodium 30 MG/0.3 ML SYRINGE SC SCH (08:23)
[2017-10-14] MEDS: Polyethylene Glycol 3350 17 GM Packet PO SCH (08:23)
[2017-10-14] MEDS: Lantiseptic Ointment 130 GM JAR TOP SCH ×2 (08:24→21:25)
[2017-10-14] MEDS: Lorazepam 1 MG TAB PO PRN ×2 (16:08→22:08)
[2017-10-14] MEDS: Donepezil HCl 10 MG TAB PO SCH (21:19)
[2017-10-14] MEDS: Mirtazapine 15 MG TAB PO SCH (21:25)
[2017-10-15] MEDS: HYDROcodone/Acetaminophen 5/325 mg Tablet PO PRN (05:05)
[2017-10-15] MEDS: Levothyroxine Sodium 75 MCG TAB PO SCH (05:06)
[2017-10-15] MEDS: Enoxaparin Sodium 30 MG/0.3 ML SYRINGE SC SCH (09:13)
[2017-10-15] MEDS: Polyethylene Glycol 3350 17 GM Packet PO SCH (09:14)
[2017-10-15] MEDS: Lantiseptic Ointment 130 GM JAR TOP SCH ×2 (09:14→21:00)
[2017-10-15] MEDS: Lisinopril 5 MG TAB PO SCH (09:14)
[2017-10-15] MEDS: Donepezil HCl 10 MG TAB PO SCH (21:14)
[2017-10-15] MEDS: Mirtazapine 15 MG TAB PO SCH (21:14)
[2017-10-16] MEDS: HYDROcodone/Acetaminophen 5/325 mg Tablet PO PRN ×2 (02:41→20:16)
[2017-10-16] MEDS: Levothyroxine Sodium 75 MCG TAB PO SCH (05:30)
[2017-10-16] MEDS: Lisinopril 5 MG TAB PO SCH (08:36)
[2017-10-16] MEDS: Lantiseptic Ointment 130 GM JAR TOP SCH ×2 (08:36→20:15)
[2017-10-16] MEDS: Enoxaparin Sodium 30 MG/0.3 ML SYRINGE SC SCH (08:37)
[2017-10-16] MEDS: Polyethylene Glycol 3350 17 GM Packet PO SCH (08:37)
[2017-10-16 10:43] LABS: ALT (SGPT) 14 U/L (8-55); AST (SGOT) 17 U/L (5-34); Albumin 3.6 g/dL (3.4-4.8); Alkaline Phosphatase 141 U/L (40-150); Anion Gap 14 mmol/L (10-20); BUN (Urea Nitrogen) 17 mg/dL (9.8-20.1); Bilirubin, Total 0.5 mg/dL (0.2-1.2); Calc. Creatinine Clearance 47 mL/min (70-130); Calcium 9.7 mg/dL (7.8-10.44); Carbon Dioxide 23 mmol/L (23-31); Chloride 106 mmol/L (98-107); Estimated GFR-MDRD 64; Globulin 3.5 g/dL (2.4-3.5); Glucose 102 mg/dL (83-110); Protein, Total 7.1 g/dL (6.0-8.3); Sodium 139 mmol/L (136-145)
--- NOTE | 2017-10-16 11:28 | PRG ---
DATE OF SERVICE: 10/16/2017 SUBJECTIVE: The patient has been doing better. She has been in good spirits. She is working with [facility]. She is just taking a couple of steps and still requiring moderate assistance with tyrel masterson. She is tolerating sitting up in chair very well. OBJECTIVE: The patient is sitting up in a Heydi chair. She is in a very happy mood and in no distres s. Her temperature is 97.8. Pulse 94, blood pressure 138/78, respirations 20, O2 sat 98% on room air . Lungs clear. Heart, regular rate. Extremities, no edema. ASSESSMENT: 1. Fracture of the right side pubic symphysis secondary to a fall on 09/07/2017. A. Presenting with initial fall, which probably result in fracture and then a subsequent fall when she could not support herself on the right leg. B. Repeat x-ray of the left hip showed no fracture and hip x-ray of the pelvis showed displaced fracture of the right pubis that was done on 09/19/2017. C. Continued improvement. Pain well controlled, still extremely weak and only standing and taki ng a couple of steps as of 10/16/2017. 2. Leukocytosis. A. Resolved. B. Etiology probably secondary to stress from the fracture and the falls causing increased bebeto gination. 3. Alzheimer's dementia. A. Stable. Periods of agitation resolved as of 10/16/2017. 4. Expressive aphasia. 5. Hypertension. 6. Hypothyroidism. 7. Chronic kidney disease. 8. Dehydration, resolved. 9. Urinary retention. A. 1400 mL residual with placement of catheter on the evening of 09/10/2017. B. Catheter removed on 09/13/2017 per request of the patient. The patient was unable to void, ca theter replaced and 475 mL residual as of 09/14/2017. 10. Urinary tract infection. A. Urinalysis suspicious of urinary tract infection done on the evening of 09/10/2017. B. Urine culture had less than 10,000 colony count of mixed skin isaac, no evidence of an infect ion. 11. Anorexia. A. Possibly related to the Aricept. B. Resolved as of 09/28/2017. 12. Depression. A. Improved as of 10/16/2017. PLAN: Continue physical therapy. We will recheck CBC and CMP. We will try to removal of catheter.
[2017-10-16] MEDS: Donepezil HCl 10 MG TAB PO SCH (20:17)
[2017-10-16] MEDS: Mirtazapine 15 MG TAB PO SCH (20:21)
[2017-10-17] MEDS: Levothyroxine Sodium 75 MCG TAB PO SCH (05:46)
[2017-10-17 07:29] LABS: #Basophils 0.1 thou/uL (0.0-0.2); #Eosinphils 0.9 thou/uL (0.0-0.7); #Lymphocytes 1.1 thou/uL (1.20-3.40); #Monocytes 0.9 thou/uL (0.11-0.59); #Neutrophils 3.1 thou/uL (1.40-6.50); %Basophils 1.5 % (0.0-1.0); %Eosinophils 14.3 % (0.0-10.0); %Lymphocytes 18.4 % (21.0-51.0); %Monocytes 14.7 % (0.0-10.0); %Neutrophils 51.2 % (42.0-75.0); Hemoglobin 12.2 g/dL (12.0-16.0); Mean Corpuscular HGB CONC 32.4 g/dL (32.0-36.0); Mean Corpuscular Hemoglobin 29.4 pg (27.0-31.0); Mean Corpuscular Volume 90.6 fl (81.0-99.0); Mean Platelet Volume 7.7 fL (7.4-10.4); Platelet Count 311 thou/uL (130-400); RBC Distribution Width 12.8 % (11.5-14.5); Red Blood Cell (RBC) Count 4.15 mill/uL (4.20-5.40); White Blood Cell (WBC) Count 6.1 thou/uL (4.8-10.8)
[2017-10-17] MEDS: Lisinopril 5 MG TAB PO SCH (09:37)
[2017-10-17] MEDS: Polyethylene Glycol 3350 17 GM Packet PO SCH (09:37)
[2017-10-17] MEDS: Lantiseptic Ointment 130 GM JAR TOP SCH ×2 (09:38→21:12)
[2017-10-17] MEDS: Enoxaparin Sodium 30 MG/0.3 ML SYRINGE SC SCH (09:38)
[2017-10-17] MEDS: HYDROcodone/Acetaminophen 5/325 mg Tablet PO PRN ×2 (10:26→21:50)
--- NOTE | 2017-10-17 19:47 | PRG ---
DATE OF SERVICE: 10/17/2017 SUBJECTIVE: The patient is up in a Heydi chair. Her son, Kris, said she ate good this morning. She has been comfortable. OBJECTIVE: GENERAL: The patient is sitting up in a Heydi chair. She is alert and looks comfortable, in no distr ess. VITAL SIGNS: Her temp 97.5, pulse 91, respirations 20, O2 sat 96% on room air, blood pressure 142/70 . LUNGS: Clear. HEART: Regular rate. ASSESSMENT: 1. Fracture of the right side pubic symphysis secondary to a fall on 09/07/2017. A. Presenting with initial fall, which probably result in fracture and then a subsequent fall when she could not support herself on the right leg. B. Repeat x-ray of the left hip showed no fracture and hip x-ray of the pelvis showed displaced fracture of the right pubis that was done on 09/19/2017. C. Continued improvement. Pain well controlled as of 10/17/2017. 2. Leukocytosis. A. Resolved. B. Etiology probably secondary to stress from the fracture and the falls causing increased bebeto gination. 3. Alzheimer's dementia. A. Stable. Periods of agitation much improved as of 10/17/2017. 4. Expressive aphasia. 5. Hypertension. 6. Hypothyroidism. 7. Chronic kidney disease. 8. Dehydration, resolved. 9. Urinary retention. A. 1400 mL residual with placement of catheter on the evening of 09/10/2017. B. Catheter removed on 09/13/2017 per request of the patient. The patient was unable to void, catheter replaced and 475 mL residual as of 09/14/2017. C. We will try removal of catheter as of 10/17/2017. 10. Urinary tract infection. A. Urinalysis suspicious of urinary tract infection done on the evening of 09/10/2017. B. Urine culture had less than 10,000 colony count of mixed skin isaac, no evidence of an infect ion. 11. Anorexia. A. Possibly related to the Aricept. B. Resolved as of 09/28/2017. 12. Depression. 13. Generalized weakness, a very gradual improvement as of 10/17/2017. PLAN: Discontinue Cha catheter. Continue physical therapy.
[2017-10-17] MEDS: Donepezil HCl 10 MG TAB PO SCH (21:50)
[2017-10-17] MEDS: Mirtazapine 15 MG TAB PO SCH (21:50)
[2017-10-18] MEDS: Lorazepam 0.5 MG TAB PO PRN (02:42)
[2017-10-18] MEDS: HYDROcodone/Acetaminophen 5/325 mg Tablet PO PRN ×2 (03:02→22:03)
[2017-10-18] MEDS: Levothyroxine Sodium 75 MCG TAB PO SCH (05:20)
[2017-10-18] MEDS: Lisinopril 5 MG TAB PO SCH (08:45)
[2017-10-18] MEDS: Enoxaparin Sodium 30 MG/0.3 ML SYRINGE SC SCH (08:45)
[2017-10-18] MEDS: Polyethylene Glycol 3350 17 GM Packet PO SCH (08:45)
[2017-10-18] MEDS: Lantiseptic Ointment 130 GM JAR TOP SCH ×2 (08:46→21:03)
[2017-10-18] MEDS: Donepezil HCl 10 MG TAB PO SCH (21:02)
[2017-10-18] MEDS: Mirtazapine 15 MG TAB PO SCH (21:03)
[2017-10-18 23:10] LABS: Bilirubin Negative (Negative); Blood, Urine Small (Negative); Clarity Cloudy (Clear); Glucose, Urine (Dipstick) Negative (Negative); Leukocyte Small (Negative); Nitrite Positive (Negative); Protein, Urine (Dipstick) Trace mg/dL (Neg-Trace); Specific Gravity, Urine 1.015 (1.005-1.030); Urobilinogen 0.2 mg/dL (0.2-1.0); pH, Urine 5.5 (5.0-9.0)
[2017-10-19 00:25] LABS: Bacteria/HPF 4+ HPF (None Seen); Renal Epithelial 0-3 HPF (0-3); Squamous Epithelial 0-3 HPF (0-3); Transitional Epithelial 0-3 HPF (0-3)
[2017-10-19] MEDS: Levothyroxine Sodium 75 MCG TAB PO SCH (05:41)
[2017-10-19] MEDS: Polyethylene Glycol 3350 17 GM Packet PO SCH (08:25)
[2017-10-19] MEDS: Enoxaparin Sodium 30 MG/0.3 ML SYRINGE SC SCH (08:25)
[2017-10-19] MEDS: Lisinopril 5 MG TAB PO SCH (08:25)
[2017-10-19] MEDS: Lantiseptic Ointment 130 GM JAR TOP SCH ×2 (08:26→20:38)
[2017-10-19] MEDS: HYDROcodone/Acetaminophen 5/325 mg Tablet PO PRN (11:13)
[2017-10-19] MEDS: Lorazepam 0.5 MG TAB PO PRN ×2 (11:18→18:11)
[2017-10-19] MEDS: Donepezil HCl 10 MG TAB PO SCH (20:38)
[2017-10-19] MEDS: Mirtazapine 15 MG TAB PO SCH (20:38)
[2017-10-20] MEDS: HYDROcodone/Acetaminophen 5/325 mg Tablet PO PRN ×3 (01:12→17:21)
[2017-10-20] MEDS: Levothyroxine Sodium 75 MCG TAB PO SCH (06:01)
[2017-10-20] MEDS: Polyethylene Glycol 3350 17 GM Packet PO SCH (09:03)
[2017-10-20] MEDS: Lisinopril 10 MG TAB PO SCH (09:03)
[2017-10-20] MEDS: Enoxaparin Sodium 30 MG/0.3 ML SYRINGE SC SCH (09:04)
[2017-10-20] MEDS: Lantiseptic Ointment 130 GM JAR TOP SCH ×2 (09:04→20:24)
--- NOTE | 2017-10-20 13:17 | PRG ---
DATE OF SERVICE: 10/20/2017 SUBJECTIVE: The patient is up in her Heydi chair. Her son, Kris, is in there with her. He said she is doing alright, eating better. Her Cha catheter was removed and then she did not void and had a large residual. She had intermittent cath, but even after this, she still remained unable to void a nd developed a large residual. Cha catheter was replaced and will need to remain in. The patient is still working with physical therapy, but her dementia interferes with her ability to participate m the [facility]. She is still requiring moderate assistance to go from sitting to a standing position. She is a ble to pivot, but she is not really walking any. OBJECTIVE: The patient is lying in her Heydi chair. She is alert, but not communicative due to her s evere expressive aphasia. Temp 97.3, pulse 70. Her pulse is 93, respirations 16, O2 sat 100% on adam m air, blood pressure 167/80. Her lungs are clear. Heart, regular rate. Extremities, no edema. ASSESSMENT: 1. Fracture of the right side pubic symphysis secondary to a fall on 09/07/2017. A. Presenting with initial fall, which probably result in fracture and then a subsequent fall when she could not support herself on the right leg. B. Repeat x-ray of the left hip showed no fracture and hip x-ray of the pelvis showed displaced fracture of the right pubis that was done on 09/19/2017. C. Improved, is not having the pain like she was as of 10/20/2017. 2. Leukocytosis. A. Resolved. B. Etiology probably secondary to stress from the fracture and the falls causing increased bebeto gination. 3. Alzheimer's dementia. A. Stable. Periods of agitation much improved as of 10/17/2017. 4. Expressive aphasia. 5. Hypertension. 6. Hypothyroidism. 7. Chronic kidney disease. 8. Dehydration, resolved. 9. Urinary retention. A. 1400 mL residual with placement of catheter on the evening of 09/10/2017. B. Catheter removed on 09/13/2017 per request of the patient. The patient was unable to void, catheter replaced and 475 mL residual as of 09/14/2017. C. Catheter was removed on 10/17/2017, but she was unable to void and required replacement of th e catheter on 10/18/2017. 10. Urinary tract infection. A. Urinalysis suspicious of urinary tract infection done on the evening of 09/10/2017. B. Urine culture had less than 10,000 colony count of mixed skin isaac, no evidence of an infect ion. 11. Anorexia. A. Possibly related to the Aricept. B. Resolved as of 09/28/2017. 12. Depression. 13. Generalized weakness. A. Very slow improvement, tolerating sitting up in a chair, but not ambulating. B. Progress slowed by the dementia. PLAN: Continue efforts on physical therapy. The patient would be a very poor candidate for intermit tent catheterization. At present will leave the Cha catheter in.
[2017-10-20] MEDS: Lorazepam 0.5 MG TAB PO PRN (15:00)
[2017-10-20] MEDS: Donepezil HCl 10 MG TAB PO SCH (20:24)
[2017-10-20] MEDS: Mirtazapine 15 MG TAB PO SCH (20:24)
[2017-10-21] MEDS: HYDROcodone/Acetaminophen 5/325 mg Tablet PO PRN ×4 (00:12→20:08)
[2017-10-21] MEDS: Levothyroxine Sodium 75 MCG TAB PO SCH (05:23)
[2017-10-21] MEDS: Lisinopril 10 MG TAB PO SCH (09:20)
[2017-10-21] MEDS: Polyethylene Glycol 3350 17 GM Packet PO SCH (09:20)
[2017-10-21] MEDS: Enoxaparin Sodium 30 MG/0.3 ML SYRINGE SC SCH (09:20)
[2017-10-21] MEDS: Lantiseptic Ointment 130 GM JAR TOP SCH ×2 (09:20→20:17)
[2017-10-21] MEDS: Lorazepam 0.5 MG TAB PO PRN (17:33)
[2017-10-21] MEDS: Mirtazapine 15 MG TAB PO SCH (20:09)
[2017-10-21] MEDS: Donepezil HCl 10 MG TAB PO SCH (20:09)
[2017-10-22] MEDS: HYDROcodone/Acetaminophen 5/325 mg Tablet PO PRN ×2 (03:15→13:06)
[2017-10-22] MEDS: Levothyroxine Sodium 75 MCG TAB PO SCH (05:27)
[2017-10-22] MEDS: Lisinopril 10 MG TAB PO SCH (09:38)
[2017-10-22] MEDS: Enoxaparin Sodium 30 MG/0.3 ML SYRINGE SC SCH (09:38)
[2017-10-22] MEDS: Polyethylene Glycol 3350 17 GM Packet PO SCH (09:38)
[2017-10-22] MEDS: Lantiseptic Ointment 130 GM JAR TOP SCH ×2 (09:39→20:51)
[2017-10-22] MEDS: Lorazepam 0.5 MG TAB PO PRN (19:44)
[2017-10-22] MEDS: Donepezil HCl 10 MG TAB PO SCH (20:51)
[2017-10-22] MEDS: Mirtazapine 15 MG TAB PO SCH (20:52)
[2017-10-23] MEDS: Levothyroxine Sodium 75 MCG TAB PO SCH (05:01)
[2017-10-23] MEDS: Polyethylene Glycol 3350 17 GM Packet PO SCH (08:57)
[2017-10-23] MEDS: Enoxaparin Sodium 30 MG/0.3 ML SYRINGE SC SCH (08:58)
[2017-10-23] MEDS: Lantiseptic Ointment 130 GM JAR TOP SCH ×2 (08:59→20:23)
[2017-10-23] MEDS: Lisinopril 10 MG TAB PO SCH (08:59)
--- NOTE | 2017-10-23 12:51 | PRG ---
DATE OF SERVICE: 10/23/2017 SUBJECTIVE: The patient is eating a little better as she has little periods were she does get a bit agitated. Her pain seems to be well controlled and at times, she will even crawls her legs with phys ical therapy. She is walking up to 5 feet with a rolling walker, maximum assist. Still requires max imum assist with transfer. OBJECTIVE: GENERAL: The patient is up in her Heydi chair with her Cha catheter. She looks comfortable in no d istress. VITAL SIGNS: Her temperature is 98.9, pulse 85, blood pressure 136/68, respirations 18 and O2 satura tion 98%. LUNGS: Clear. HEART: Regular rate. EXTREMITIES: No edema. ASSESSMENT: 1. Fracture of the right side pubic symphysis secondary to a fall on 09/07/2017. A. Presenting with initial fall, which probably result in fracture and then a subsequent fall when she could not support herself on the right leg. B. Repeat x-ray of the left hip showed no fracture and hip x-ray of the pelvis showed displaced fracture of the right pubis that was done on 09/19/2017. C. Improved pain, well controlled as of 10/23/2017. 2. Leukocytosis. A. Resolved. B. Etiology probably secondary to stress from the fracture and the falls causing increased bebeto gination. 3. Alzheimer's dementia. A. Stable as of 10/23/2017. 4. Expressive aphasia. 5. Hypertension. 6. Hypothyroidism. 7. Chronic kidney disease. 8. Dehydration, resolved. 9. Urinary retention. A. 1400 mL residual with placement of catheter on the evening of 09/10/2017. B. Catheter removed on 09/13/2017 per request of the patient. The patient was unable to void, catheter replaced and 475 mL residual as of 09/14/2017. C. Catheter was removed on 10/17/2017, but she was unable to void and required replacement of th e catheter on 10/18/2017. 10. Urinary tract infection. A. Urinalysis suspicious of urinary tract infection done on the evening of 09/10/2017. B. Urine culture had less than 10,000 colony count of mixed skin isaac, no evidence of an infect ion. 11. Anorexia. A. Possibly related to the Aricept. B. Resolved as of 09/28/2017. 12. Depression. 13. Generalized weakness. A. Very slow improvement, she is ambulating with a walker and maximum assist up to 5 feet as of 10/23/2017. B. Progress slowed by the dementia. PLAN: We will increase the Aricept to 10 mg daily, discontinue the hydrocodone at home. She will gomez ve the tramadol, which we use as if needed. Continue physical therapy.
[2017-10-23] MEDS: Lorazepam 0.5 MG TAB PO PRN ×2 (13:39→20:23)
[2017-10-23] MEDS: Donepezil HCl 10 MG TAB PO SCH (20:22)
[2017-10-23] MEDS: Mirtazapine 15 MG TAB PO SCH (20:23)
[2017-10-23] MEDS: traMADol HCl 50 MG TAB PO PRN (22:51)
[2017-10-24] MEDS: Levothyroxine Sodium 75 MCG TAB PO SCH (05:23)
[2017-10-24] MEDS: Enoxaparin Sodium 30 MG/0.3 ML SYRINGE SC SCH (08:54)
[2017-10-24] MEDS: Lisinopril 10 MG TAB PO SCH (08:55)
[2017-10-24] MEDS: Lantiseptic Ointment 130 GM JAR TOP SCH ×2 (08:56→21:06)
[2017-10-24] MEDS: Polyethylene Glycol 3350 17 GM Packet PO SCH (08:56)
[2017-10-24] MEDS: Lorazepam 0.5 MG TAB PO PRN ×2 (18:10→23:15)
[2017-10-24] MEDS: Mirtazapine 15 MG TAB PO SCH (21:06)
[2017-10-24] MEDS: Donepezil HCl 10 MG TAB PO SCH (21:06)
[2017-10-24] MEDS: traMADol HCl 50 MG TAB PO PRN (22:34)
[2017-10-25] MEDS: Levothyroxine Sodium 75 MCG TAB PO SCH (05:41)
[2017-10-25] MEDS: Enoxaparin Sodium 30 MG/0.3 ML SYRINGE SC SCH (08:36)
[2017-10-25] MEDS: Lisinopril 10 MG TAB PO SCH (08:36)
[2017-10-25] MEDS: Polyethylene Glycol 3350 17 GM Packet PO SCH (08:37)
[2017-10-25] MEDS: Lantiseptic Ointment 130 GM JAR TOP SCH ×2 (08:37→21:19)
[2017-10-25] MEDS: traMADol HCl 50 MG TAB PO PRN (17:19)
[2017-10-25] MEDS: Mirtazapine 15 MG TAB PO SCH (21:19)
[2017-10-25] MEDS: Donepezil HCl 10 MG TAB PO SCH (21:19)
[2017-10-26] MEDS: Levothyroxine Sodium 75 MCG TAB PO SCH (05:23)
[2017-10-26] MEDS: Polyethylene Glycol 3350 17 GM Packet PO SCH (08:14)
[2017-10-26] MEDS: Lisinopril 10 MG TAB PO SCH (08:15)
[2017-10-26] MEDS: Enoxaparin Sodium 30 MG/0.3 ML SYRINGE SC SCH (08:16)
[2017-10-26] MEDS: Lantiseptic Ointment 130 GM JAR TOP SCH ×2 (08:18→21:05)
[2017-10-26] MEDS: Acetaminophen 325 MG TAB PO PRN ×2 (12:37→17:36)
[2017-10-26 13:03] LABS: Bilirubin Negative (Negative); Blood, Urine Large (Negative); Clarity Cloudy (Clear); Glucose, Urine (Dipstick) Negative (Negative); Leukocyte Large (Negative); Nitrite Positive (Negative); Protein, Urine (Dipstick) > or equal to 300 mg/dL (Neg-Trace); RBC/HPF 21-50 HPF (0-3); Specific Gravity, Urine 1.025 (1.005-1.030)
[2017-10-26 13:04] LABS: Bacteria/HPF 3+ HPF (None Seen); Squamous Epithelial 0-3 HPF (0-3)
--- NOTE | 2017-10-26 17:53 | PRG ---
DATE OF SERVICE: 10/26/2017 SUBJECTIVE: This afternoon, the patient seemed a little more restless, a little more agitated than yuliya abdul. She was found to be hot to the touch. Her temperature was checked and was found to be 100.5. The patient was given Tylenol with resolution of the fever. The patient had no rash. Urine was rohan cked and the catheter specimen from her Cha showed 21-50 rbc's, wbc's too numerous to count, nitrit e positive, specific gravity 1.025, and 3+ bacteria. Her Cha catheter was changed out and the higinio ent started on Cipro 500 mg p.o. twice today. The patient will check later in the afternoon and her temperature had normalized and she has been calm in her usual self. The Cha catheter had been tan ged out. OBJECTIVE: GENERAL: Presently, patient is sitting up in bed. She looks comfortable and in no distress. She is calm. VITAL SIGNS: Her temperature is 97.8. Her pressure earlier was 148/80, respirations 20, pulse 98, O 2 sat 98% on room air. LUNGS: Clear. HEART: Regular rate. SKIN: No rash. ASSESSMENT: 1. Urinary tract infection. 2. Agitation, probably secondary to the fever that has resolved with resolution of the fever. PLAN: Culture of the urine taken. Her Cha catheter was changed out. The patient was started on C ipro 500 mg b.i.d. for 10 days. CBC will be checked in the morning.
[2017-10-26] MEDS: Ciprofloxacin 500 MG TAB PO SCH (21:05)
[2017-10-26] MEDS: Mirtazapine 15 MG TAB PO SCH (21:05)
[2017-10-26] MEDS: Donepezil HCl 10 MG TAB PO SCH (21:05)
[2017-10-27 05:41] LABS: Anisocytosis SLIGHT = 6-15 cells (100X) (0-5/hpf); Eosinophils 2 % (0-10); Hemoglobin 12.3 g/dL (12.0-16.0); Lymphocytes 10 % (21-51); MDiff Complete? YES; Mean Corpuscular HGB CONC 31.9 g/dL (32.0-36.0); Mean Corpuscular Volume 90.8 fl (81.0-99.0); Mean Platelet Volume 7.7 fL (7.4-10.4); Monocytes 14 % (0-10); Neutrophil 73 % (42-75); PLT Morphology Comment Appears Adequate; Platelet Count 325 thou/uL (130-400); Poikilocytosis SLIGHT = 6-15 cells (100X) (0-5/hpf); RBC Distribution Width 12.8 % (11.5-14.5); RBC Morphology Abnormal; Reactive Lymphocytes 1 % (0-10); Red Blood Cell (RBC) Count 4.24 mill/uL (4.20-5.40); White Blood Cell (WBC) Count 8.1 thou/uL (4.8-10.8)
[2017-10-27] MEDS: Levothyroxine Sodium 75 MCG TAB PO SCH (05:47)
[2017-10-27] MEDS: Ciprofloxacin 500 MG TAB PO SCH ×2 (05:47→21:10)
[2017-10-27 05:51] LABS: Anion Gap 15 mmol/L (10-20); BUN (Urea Nitrogen) 14 mg/dL (9.8-20.1); Calc. Creatinine Clearance 41 mL/min (70-130); Carbon Dioxide 24 mmol/L (23-31); Chloride 104 mmol/L (98-107); Estimated GFR-MDRD 66; Glucose 89 mg/dL (83-110); Potassium 4.2 mmol/L (3.5-5.1); Sodium 139 mmol/L (136-145)
--- NOTE | 2017-10-27 08:11 | PRG ---
DATE OF SERVICE: 10/27/2017 SUBJECTIVE: Nurses report no problems during the night or this morning. OBJECTIVE: The patient is lying quietly in bed. She is awake, alert, and looks very comfortable. H er vital signs show a temperature of 98.2, pulse 91, respirations 16, O2 sat 97% on room air, blood p ressure 116/78. Lungs are clear. Heart, regular rate. Extremities; no edema. Lab this morning shows an H&H of 12.3 and 38.5, white cell count 8100 with 73% segs, 10% lymphocytes. Urine culture pending. ASSESSMENT: 1. Urinary tract infection. A. Antibiotics with Cipro initiated on 10/26/2017. B. Improved with no fever as of 10/27/2017. 2. Generalized weakness. A. Very slow progress. 3. Fracture of the right side of the pubic symphysis secondary to a fall on 09/07/2017. A. Gradual improvement and pain well controlled as of 10/27/2017. 4. Alzheimer dementia. A. Stable as of 10/27/2017. 5. Severe expressive aphasia. 6. Hypertension. 7. Hypothyroidism. 8. Urinary retention. A. 1400 mL residual with placement catheter on 09/10/2017. B. Trial of removal of catheter unsuccessful on 10/17/2017, requiring replacement of the catheter o n 10/18/2017. 9. Depression. 10. Generalized weakness. A. Very slow progresses as of 10/27/2017. PLAN: Continue present care. Continue the Cipro.
[2017-10-27] MEDS: Polyethylene Glycol 3350 17 GM Packet PO SCH (09:01)
[2017-10-27] MEDS: Lisinopril 10 MG TAB PO SCH (09:01)
[2017-10-27] MEDS: Acetaminophen 325 MG TAB PO PRN ×2 (09:01→16:22)
[2017-10-27] MEDS: Lantiseptic Ointment 130 GM JAR TOP SCH ×2 (09:02→21:11)
[2017-10-27] MEDS: Enoxaparin Sodium 30 MG/0.3 ML SYRINGE SC SCH (09:02)
[2017-10-27] MEDS: Lorazepam 0.5 MG TAB PO PRN (21:09)
[2017-10-27] MEDS: traMADol HCl 50 MG TAB PO PRN (21:09)
[2017-10-27] MEDS: Mirtazapine 15 MG TAB PO SCH (21:10)
[2017-10-27] MEDS: Donepezil HCl 10 MG TAB PO SCH (21:11)
[2017-10-28] MEDS: Levothyroxine Sodium 75 MCG TAB PO SCH (05:32)
[2017-10-28] MEDS: Ciprofloxacin 500 MG TAB PO SCH ×2 (05:32→20:20)
[2017-10-28] MEDS: Enoxaparin Sodium 30 MG/0.3 ML SYRINGE SC SCH (09:01)
[2017-10-28] MEDS: Lantiseptic Ointment 130 GM JAR TOP SCH ×2 (09:01→20:24)
[2017-10-28] MEDS: Lisinopril 10 MG TAB PO SCH (09:02)
[2017-10-28] MEDS: Polyethylene Glycol 3350 17 GM Packet PO SCH (09:02)
[2017-10-28] MEDS: traMADol HCl 50 MG TAB PO PRN (13:38)
[2017-10-28] MEDS: Mirtazapine 15 MG TAB PO SCH (20:20)
[2017-10-28] MEDS: Donepezil HCl 10 MG TAB PO SCH (20:20)
[2017-10-29] MEDS: Ciprofloxacin 500 MG TAB PO SCH ×2 (06:32→20:04)
[2017-10-29] MEDS: Levothyroxine Sodium 75 MCG TAB PO SCH (06:32)
[2017-10-29] MEDS: Enoxaparin Sodium 30 MG/0.3 ML SYRINGE SC SCH (09:10)
[2017-10-29] MEDS: Lantiseptic Ointment 130 GM JAR TOP SCH ×2 (09:11→20:05)
[2017-10-29] MEDS: Lisinopril 10 MG TAB PO SCH (09:11)
[2017-10-29] MEDS: Acetaminophen 325 MG TAB PO PRN (09:11)
[2017-10-29] MEDS: Polyethylene Glycol 3350 17 GM Packet PO SCH (09:11)
[2017-10-29] MEDS: traMADol HCl 50 MG TAB PO PRN (18:29)
[2017-10-29] MEDS: Lorazepam 0.5 MG TAB PO PRN (19:45)
[2017-10-29] MEDS: Mirtazapine 15 MG TAB PO SCH (20:04)
[2017-10-29] MEDS: Donepezil HCl 10 MG TAB PO SCH (20:04)
[2017-10-30] MEDS: Ciprofloxacin 500 MG TAB PO SCH ×2 (05:32→20:05)
[2017-10-30] MEDS: Levothyroxine Sodium 75 MCG TAB PO SCH (05:32)
[2017-10-30] MEDS: Lisinopril 10 MG TAB PO SCH (09:02)
[2017-10-30] MEDS: Enoxaparin Sodium 30 MG/0.3 ML SYRINGE SC SCH (09:02)
[2017-10-30] MEDS: Polyethylene Glycol 3350 17 GM Packet PO SCH (09:02)
[2017-10-30] MEDS: Lantiseptic Ointment 130 GM JAR TOP SCH ×2 (09:02→20:05)
--- NOTE | 2017-10-30 10:38 | PRG ---
DATE OF SERVICE: 10/30/2017 SUBJECTIVE: The patient has been doing better. She has been very calm and she is working with physi robert therapy and has been walking up to 15 feet and as far as 25 feet twice a day. She still requires a rolling walker and maximum assist. She still requires moderate assistance on transfers and maximu m assistance transferring from bed to a chair. OBJECTIVE: The patient is sitting up in a bedside chair. She is eating breakfast. She is smiling a nd seems very comfortable and in no distress. Her temperature is 97.1, pulse 90, respirations 16, O2 sat 98%, blood pressure 169/77, earlier her pressure was 135/63. The patient had not had her mornin g medicines when the BP was taken. Her lungs were clear. Heart, regular rate. Extremities, no mirtha a. ASSESSMENT: 1. Urinary tract infection. A. Antibiotics with Cipro initiated on 10/26/2017. B. Asymptomatic with no fever as of 10/30/2017. 2. Generalized weakness. A. Improved where she is walking short distances with the use of a walker and maximum assist as of 0 10/30/2017. 3. Fracture of the right side of the pubic symphysis secondary to a fall on 09/07/2017. A. Gradual improvement and pain well controlled as of 10/27/2017. 4. Alzheimer dementia. A. Stable as of 10/30/2017. 5. Severe expressive aphasia. 6. Hypertension. 7. Hypothyroidism. 8. Urinary retention. A. 1400 mL residual with placement catheter on 09/10/2017. B. Trial of removal of catheter unsuccessful on 10/17/2017, requiring replacement of the catheter o n 10/18/2017. 9. Depression. A. Improved. PLAN: Overall the patient is doing better and she is making some gradual progress with her therapy. Her pain has been minimal. We will continue physical therapy.
[2017-10-30] MEDS: Lorazepam 0.5 MG TAB PO PRN ×2 (15:29→23:32)
[2017-10-30] MEDS: traMADol HCl 50 MG TAB PO PRN (17:05)
[2017-10-30] MEDS: Acetaminophen 325 MG TAB PO PRN (17:05)
[2017-10-30] MEDS: Mirtazapine 15 MG TAB PO SCH (20:04)
[2017-10-30] MEDS: Donepezil HCl 10 MG TAB PO SCH (20:05)
[2017-10-31] MEDS: Levothyroxine Sodium 75 MCG TAB PO SCH (05:34)
[2017-10-31] MEDS: Ciprofloxacin 500 MG TAB PO SCH ×2 (05:34→19:36)
[2017-10-31] MEDS: Lantiseptic Ointment 130 GM JAR TOP SCH ×2 (08:30→20:06)
[2017-10-31] MEDS: Polyethylene Glycol 3350 17 GM Packet PO SCH (08:30)
[2017-10-31] MEDS: Enoxaparin Sodium 30 MG/0.3 ML SYRINGE SC SCH (08:30)
[2017-10-31] MEDS: Lisinopril 10 MG TAB PO SCH (08:30)
[2017-10-31] MEDS: Acetaminophen 325 MG TAB PO PRN ×2 (16:55→21:38)
[2017-10-31] MEDS: Lorazepam 0.5 MG TAB PO PRN (19:35)
[2017-10-31] MEDS: Donepezil HCl 10 MG TAB PO SCH (20:06)
[2017-10-31] MEDS: Mirtazapine 15 MG TAB PO SCH (20:06)
[2017-10-31] MEDS: traMADol HCl 50 MG TAB PO PRN (23:18)
[2017-11-01] MEDS: Levothyroxine Sodium 75 MCG TAB PO SCH (05:00)
[2017-11-01] MEDS: Ciprofloxacin 500 MG TAB PO SCH ×2 (05:00→20:19)
[2017-11-01] MEDS: Lisinopril 10 MG TAB PO SCH (09:52)
[2017-11-01] MEDS: Polyethylene Glycol 3350 17 GM Packet PO SCH (09:52)
[2017-11-01] MEDS: Enoxaparin Sodium 30 MG/0.3 ML SYRINGE SC SCH (09:53)
[2017-11-01] MEDS: Lantiseptic Ointment 130 GM JAR TOP SCH ×2 (09:53→20:20)
[2017-11-01] MEDS: Lorazepam 0.5 MG TAB PO PRN ×2 (13:56→22:12)
[2017-11-01] MEDS: traMADol HCl 50 MG TAB PO PRN ×2 (13:57→22:11)
[2017-11-01] MEDS: Donepezil HCl 10 MG TAB PO SCH (20:19)
[2017-11-01] MEDS: Mirtazapine 15 MG TAB PO SCH (20:19)
[2017-11-02] MEDS: Levothyroxine Sodium 75 MCG TAB PO SCH (05:12)
[2017-11-02] MEDS: Ciprofloxacin 500 MG TAB PO SCH ×2 (05:12→19:44)
[2017-11-02] MEDS: Enoxaparin Sodium 30 MG/0.3 ML SYRINGE SC SCH (08:18)
[2017-11-02] MEDS: Lisinopril 10 MG TAB PO SCH (08:18)
[2017-11-02] MEDS: Lantiseptic Ointment 130 GM JAR TOP SCH ×2 (08:18→20:29)
[2017-11-02] MEDS: Polyethylene Glycol 3350 17 GM Packet PO SCH (08:19)
--- NOTE | 2017-11-02 10:06 | PRG ---
DATE OF SERVICE: 11/02/2017 SUBJECTIVE: The patient has been doing fine. She slept well through the night. This morning her so n said she is doing well. Nurses had reported that in the afternoon at times she does get a little a gitated. They are using 0.5 mg of lorazepam and her son says this does help. OBJECTIVE: The patient is lying in bed. She is alert, smiling, appears comfortable in no distress. Her temperature is 96.9, pulse 98, respirations 16, O2 sat 99% on room air, blood pressure 136/84. Lungs are clear. Heart, regular rate. There is no bruising over the lower extremities, no tendernes s along the pelvic area. Nurses reported yesterday afternoon that she had fallen asleep in a chair a nd slipped out of the chair, but there was no loss of consciousness and no apparent injury. ASSESSMENT: 1. Urinary tract infection. A. Antibiotics with Cipro initiated on 10/26/2017. B. Asymptomatic with no fever as of 10/30/2017. 2. Generalized weakness. A. Improved where she is walking short distances with the use of a walker and maximum assist as of 0 11/02/2017. 3. Fracture of the right side of the pubic symphysis secondary to a fall on 09/07/2017. A. Continued improvement. Pain is no longer an issue as 11/02/2017. 4. Alzheimer dementia. A. Complicated by some sundowning as of 11/02/2017. 5. Severe expressive aphasia. 6. Hypertension. 7. Hypothyroidism. 8. Urinary retention. A. 1400 mL residual with placement catheter on 09/10/2017. B. Trial of removal of catheter unsuccessful on 10/17/2017, requiring replacement of the catheter o n 10/18/2017. 9. Depression. A. Improved. PLAN: Continue present care. Will use the Ativan 0.5 mg in the afternoon as needed for the sundowni ng. The patient is on her Aricept 10 mg daily. We will try to arrange for all her therapy earlier i n the day so there is less areas of potential confrontation late in the afternoon when she seems to b e a little bit more agitated. We will continue redirection as needed. Continue physical therapy.
[2017-11-02] MEDS: Acetaminophen 325 MG TAB PO PRN (16:24)
[2017-11-02] MEDS: Lorazepam 0.5 MG TAB PO PRN (19:45)
[2017-11-02] MEDS: traMADol HCl 50 MG TAB PO PRN (19:45)
[2017-11-02] MEDS: Mirtazapine 15 MG TAB PO SCH (20:28)
[2017-11-02] MEDS: Donepezil HCl 10 MG TAB PO SCH (20:29)
[2017-11-03] MEDS: Ciprofloxacin 500 MG TAB PO SCH ×2 (05:56→20:03)
[2017-11-03] MEDS: Levothyroxine Sodium 75 MCG TAB PO SCH (05:56)
[2017-11-03] MEDS: Enoxaparin Sodium 30 MG/0.3 ML SYRINGE SC SCH (09:23)
[2017-11-03] MEDS: Lantiseptic Ointment 130 GM JAR TOP SCH ×2 (09:23→20:03)
[2017-11-03] MEDS: Lisinopril 10 MG TAB PO SCH (09:23)
[2017-11-03] MEDS: traMADol HCl 50 MG TAB PO PRN ×2 (09:24→17:05)
[2017-11-03] MEDS: Polyethylene Glycol 3350 17 GM Packet PO SCH (09:24)
[2017-11-03] MEDS: Donepezil HCl 10 MG TAB PO SCH (20:03)
[2017-11-03] MEDS: Mirtazapine 15 MG TAB PO SCH (20:03)
[2017-11-03] MEDS: Lorazepam 0.5 MG TAB PO PRN (22:01)
[2017-11-04] MEDS: Levothyroxine Sodium 75 MCG TAB PO SCH (05:23)
[2017-11-04] MEDS: Ciprofloxacin 500 MG TAB PO SCH (05:24)
[2017-11-04] MEDS: Lantiseptic Ointment 130 GM JAR TOP SCH ×2 (08:02→20:08)
[2017-11-04] MEDS: Enoxaparin Sodium 30 MG/0.3 ML SYRINGE SC SCH (08:02)
[2017-11-04] MEDS: Lisinopril 10 MG TAB PO SCH (08:03)
[2017-11-04] MEDS: Polyethylene Glycol 3350 17 GM Packet PO SCH (08:03)
[2017-11-04] MEDS ORDERED: Lisinopril 10 MG TAB PO SCH ×2 (08:06→09:00)
--- NOTE | 2017-11-04 08:57 | PRG ---
DATE OF SERVICE: 11/04/2017 SUBJECTIVE: This morning the patient is resting in bed and seems to be doing just fine. By mid to l ate afternoon, the patient seems to get very agitated, and gets angry and tearful and restless. It i s felt this has been sundowning. She has Ativan ordered for this 1/2 mg. Nurses said that eventuall y she settles. This was increased to 1 mg to see if this will help some. OBJECTIVE: This morning the patient is lying in bed, looks very comfortable. Her son said her carito cheung seemed to do very well. She appears in no distress. Her vital signs show a temperature 97.7, pul se 88, respirations 16. Her blood pressure intermittently is running to the 160-170s systolic. Her O2 sat is 99%, respirations 16. Lungs clear. Heart, regular rate. Extremities, no edema. ASSESSMENT: 1. Urinary tract infection. A. Antibiotics with Cipro initiated on 10/26/2017. B. Asymptomatic with no fever as of 11/04/2017. C. Completed a 10-day course of Cipro as of 11/04/2017. 2. Generalized weakness. A. The patient is making gradual improvement where she is walking up to 10 feet with a rolling walke r and moderate to a maximum assist 2 times a day as of 11/04/2017. 3. Fracture of the right side of the pubic symphysis secondary to a fall on 09/07/2017. A. Continued improvement. Pain is no longer an issue as 11/02/2017. 4. Alzheimer dementia. A. Complicated by sundowning in the mid to late afternoon that is not well controlled as of 11/04/19 18. 5. Severe expressive aphasia. 6. Hypertension. A. Recently blood pressures systolic has not been adequately controlled. 7. Hypothyroidism. 8. Urinary retention. A. 1400 mL residual with placement catheter on 09/10/2017. B. Trial of removal of catheter unsuccessful on 10/17/2017, requiring replacement of the catheter o n 10/18/2017. 9. Depression. A. Some of the agitation in the afternoon is probably sundowning, but there may also be some element of depression and fatigue and recurrence of the depression as of 11/04/2017. PLAN: We will continue physical therapy. We will utilize 1/2-1 mg of Ativan in the afternoon if she gets agitated. We will increase her mirtazapine to 30 mg at bedtime. We will also increase her lis inopril to 20 mg a day. Her Cipro will be stopped.
[2017-11-04] MEDS: Lorazepam 1 MG TAB PO PRN (14:51)
[2017-11-04] MEDS: Mirtazapine 15 MG TAB PO SCH (20:07)
[2017-11-04] MEDS: Donepezil HCl 10 MG TAB PO SCH (20:07)
[2017-11-04] MEDS: traMADol HCl 50 MG TAB PO PRN (20:23)
[2017-11-04] MEDS: Lorazepam 0.5 MG TAB PO PRN (23:18)
[2017-11-05] MEDS: Levothyroxine Sodium 75 MCG TAB PO SCH (05:12)
[2017-11-05] MEDS: Polyethylene Glycol 3350 17 GM Packet PO SCH (09:23)
[2017-11-05] MEDS: Lisinopril 10 MG TAB PO SCH (09:23)
[2017-11-05] MEDS: Enoxaparin Sodium 30 MG/0.3 ML SYRINGE SC SCH (09:23)
[2017-11-05] MEDS: Lantiseptic Ointment 130 GM JAR TOP SCH ×2 (09:25→20:02)
--- NOTE | 2017-11-05 11:13 | PRG ---
DATE OF SERVICE: 11/05/2017 SUBJECTIVE: Nurses report the patient was up until around 1:00, just not sleeping and a little agita reggie. She eventually went to sleep and this morning seems to be calm. OBJECTIVE: The patient lying in bed, comfortable, appears in no distress. Her temperature 98.1, pul se 92, respirations 18, O2 sat has been 95% on room air, blood pressure 115/66. Lungs are clear. He art, regular rate. ASSESSMENT: 1. Urinary tract infection. A. Antibiotics with Cipro initiated on 10/26/2017. B. Asymptomatic with no fever as of 11/04/2017. C. Completed a 10-day course of Cipro as of 11/04/2017. 2. Generalized weakness. A. The patient is making gradual improvement where she is walking up to 10 feet with a rolling w alker and moderate to a maximum assist 2 times a day as of 11/05/2017. 3. Fracture of the right side of the pubic symphysis secondary to a fall on 09/07/2017. A. Continued improvement. Pain is no longer an issue as 11/05/2017. 4. Alzheimer dementia. A. Complicated by sundowning in the mid to late afternoon that is not well controlled as of 10/07. 5. Severe expressive aphasia. 6. Hypertension. A. Recently blood pressures systolic has not been adequately controlled. 7. Hypothyroidism. 8. Urinary retention. A. 1400 mL residual with placement catheter on 09/10/2017. B. Trial of removal of catheter unsuccessful on 10/17/2017, requiring replacement of the cathet er on 10/18/2017. 9. Depression. A. Some of the agitation in the afternoon is probably sundowning, but there may also be some shahida ment of depression and fatigue and recurrence of the depression as of 11/05/2017. PLAN: I visited with patient's son, Kris, and we discussed what is going on with her. She seems to do well in the mornings and early afternoon. I just started her yesterday late on the sertraline. We will increase this after a week. She has Ativan to use in the afternoon. If the afternoon agitat ion persists, might try scheduling this, but have been a little reluctant to schedule this due to pot ential of sedation.
[2017-11-05] MEDS: Acetaminophen 325 MG TAB PO PRN (15:23)
[2017-11-05] MEDS: Lorazepam 1 MG TAB PO PRN (15:23)
[2017-11-05] MEDS: traMADol HCl 50 MG TAB PO PRN (20:00)
[2017-11-05] MEDS: Donepezil HCl 10 MG TAB PO SCH (20:01)
[2017-11-05] MEDS: Mirtazapine 15 MG TAB PO SCH (20:02)
[2017-11-06] MEDS: Levothyroxine Sodium 75 MCG TAB PO SCH (05:16)
[2017-11-06] MEDS: Enoxaparin Sodium 30 MG/0.3 ML SYRINGE SC SCH (09:09)
[2017-11-06] MEDS: Polyethylene Glycol 3350 17 GM Packet PO SCH (09:10)
[2017-11-06] MEDS: Lisinopril 10 MG TAB PO SCH (09:10)
[2017-11-06] MEDS: Lantiseptic Ointment 130 GM JAR TOP SCH ×2 (09:11→22:09)
--- NOTE | 2017-11-06 10:38 | PRG ---
DATE OF SERVICE: 11/06/2017 SUBJECTIVE: The patient just waking up this morning. Her son, Kris is with her and said she seems to be doing fine. She is continuing to work with physical therapy and able to walk just a very few s teps with maximum assistance. OBJECTIVE: The patient looks comfortable, in no distress. Her temperature is 97.7, pulse 98, respir ations 20, O2 sat 96%, blood pressure 155/83. Her lungs are clear. Heart, regular rate. Extremitie s, no edema. ASSESSMENT: 1. Urinary tract infection. A. Antibiotics with Cipro initiated on 10/26/2017. B. Asymptomatic with no fever as of 11/04/2017. C. Completed a 10-day course of Cipro as of 11/04/2017. 2. Generalized weakness. A. The patient is making gradual improvement where she is walking up to 10 feet with a rolling w alker and moderate to a maximum assist 2 times a day as of 11/06/2017. 3. Fracture of the right side of the pubic symphysis secondary to a fall on 09/07/2017. A. Continued improvement. Pain is no longer an issue as 11/05/2017. 4. Alzheimer dementia. A. Complicated by sundowning in the mid to late afternoon that is not well controlled as of 10/07. B. The agitation seems to be a little bit better controlled as of 11/06/2017. 5. Severe expressive aphasia. 6. Hypertension. A. Recently blood pressures systolic has not been adequately controlled. 7. Hypothyroidism. 8. Urinary retention. A. 1400 mL residual with placement catheter on 09/10/2017. B. Trial of removal of catheter unsuccessful on 10/17/2017, requiring replacement of the cathet er on 10/18/2017. 9. Depression. A. Some of the agitation in the afternoon is probably sundowning, but there may also be some shahida ment of depression and fatigue and recurrence of the depression as of 11/05/2017. PLAN: Continue present care. Continue physical therapy.
[2017-11-06] MEDS: Lorazepam 1 MG TAB PO PRN (16:46)
[2017-11-06] MEDS: traMADol HCl 50 MG TAB PO PRN (16:47)
[2017-11-06] MEDS: Mirtazapine 15 MG TAB PO SCH (22:09)
[2017-11-06] MEDS: Donepezil HCl 10 MG TAB PO SCH (22:09)
[2017-11-07] MEDS: Lorazepam 0.5 MG TAB PO PRN (00:39)
[2017-11-07] MEDS: traMADol HCl 50 MG TAB PO PRN ×2 (00:39→18:04)
[2017-11-07] MEDS: Levothyroxine Sodium 75 MCG TAB PO SCH (05:56)
[2017-11-07] MEDS: Lisinopril 10 MG TAB PO SCH (08:30)
[2017-11-07] MEDS: Lantiseptic Ointment 130 GM JAR TOP SCH ×2 (08:30→21:55)
[2017-11-07] MEDS: Polyethylene Glycol 3350 17 GM Packet PO SCH (08:30)
[2017-11-07] MEDS: Enoxaparin Sodium 30 MG/0.3 ML SYRINGE SC SCH (08:31)
[2017-11-07] MEDS: Lorazepam 1 MG TAB PO PRN (15:52)
[2017-11-07] MEDS: Mirtazapine 15 MG TAB PO SCH (21:54)
[2017-11-07] MEDS: Donepezil HCl 10 MG TAB PO SCH (21:55)
[2017-11-08] MEDS: Levothyroxine Sodium 75 MCG TAB PO SCH (05:18)
[2017-11-08] MEDS: traMADol HCl 50 MG TAB PO PRN ×2 (07:07→20:31)
[2017-11-08] MEDS: Enoxaparin Sodium 30 MG/0.3 ML SYRINGE SC SCH (08:17)
[2017-11-08] MEDS: Lantiseptic Ointment 130 GM JAR TOP SCH ×2 (08:17→21:47)
[2017-11-08] MEDS: Polyethylene Glycol 3350 17 GM Packet PO SCH (08:17)
[2017-11-08] MEDS: Lisinopril 10 MG TAB PO SCH (08:17)
[2017-11-08] MEDS: Lorazepam 1 MG TAB PO PRN (14:23)
[2017-11-08] MEDS: Donepezil HCl 10 MG TAB PO SCH (20:27)
[2017-11-08] MEDS: Mirtazapine 15 MG TAB PO SCH (20:27)
[2017-11-08] MEDS: Lorazepam 0.5 MG TAB PO PRN (20:33)
[2017-11-08] MEDS: Bisacodyl 10 MG SUPP PR PRN (20:36)
[2017-11-09] MEDS: Levothyroxine Sodium 75 MCG TAB PO SCH (05:35)
[2017-11-09] MEDS: Enoxaparin Sodium 30 MG/0.3 ML SYRINGE SC SCH (08:09)
[2017-11-09] MEDS: Polyethylene Glycol 3350 17 GM Packet PO SCH (08:09)
[2017-11-09] MEDS: Lisinopril 10 MG TAB PO SCH (08:09)
[2017-11-09] MEDS: Lantiseptic Ointment 130 GM JAR TOP SCH ×2 (08:25→20:34)
--- NOTE | 2017-11-09 09:15 | PRG ---
DATE OF SERVICE: 11/09/2017 SUBJECTIVE: The patient's son, Kris, is with her and said she is doing all right, she is eating goo d. OBJECTIVE: The patient is waking up and appears in no distress. Her vital signs show temperature 97 .6, pulse 98, respirations 18, O2 sat 100% on room air, blood pressure 172/80, 85. Lungs are clear. Heart, regular rate. ASSESSMENT: 1. Urinary tract infection. A. Antibiotics with Cipro initiated on 10/26/2017. B. Asymptomatic with no fever as of 11/04/2017. C. Completed a 10-day course of Cipro as of 11/04/2017. 2. Generalized weakness. A. The patient is making gradual improvement where she is walking up to 10 feet with a rolling w alker and moderate to a maximum assist 2 times a day as of 11/09/2017. 3. Fracture of the right side of the pubic symphysis secondary to a fall on 09/07/2017. A. Continued improvement. Pain is no longer an issue as 11/09/2017. 4. Alzheimer dementia. A. Complicated by sundowning in the mid to late afternoon that is not well controlled as of 10/07. B. The agitation seems to be a little bit better controlled as of 11/09/2017. 5. Severe expressive aphasia. 6. Hypertension. A. Recently blood pressures systolic has not been adequately controlled. 7. Hypothyroidism. 8. Urinary retention. A. 1400 mL residual with placement catheter on 09/10/2017. B. Trial of removal of catheter unsuccessful on 10/17/2017, requiring replacement of the cathet er on 10/18/2017. 9. Depression. A. Some of the agitation in the afternoon is probably sundowning, but there may also be some shahida ment of depression and fatigue and recurrence of the depression as of 11/05/2017. PLAN: Continue present care. Continue physical therapy.
[2017-11-09] MEDS: traMADol HCl 50 MG TAB PO PRN (16:48)
[2017-11-09] MEDS: Lorazepam 1 MG TAB PO PRN (16:49)
[2017-11-09] MEDS: Donepezil HCl 10 MG TAB PO SCH (20:33)
[2017-11-09] MEDS: Mirtazapine 15 MG TAB PO SCH (20:33)
[2017-11-10] MEDS: Lorazepam 1 MG TAB PO PRN (00:46)
[2017-11-10] MEDS: traMADol HCl 50 MG TAB PO PRN ×2 (00:47→19:50)
[2017-11-10] MEDS: Levothyroxine Sodium 75 MCG TAB PO SCH (05:10)
[2017-11-10] MEDS: Polyethylene Glycol 3350 17 GM Packet PO SCH (09:03)
[2017-11-10] MEDS: Enoxaparin Sodium 30 MG/0.3 ML SYRINGE SC SCH (09:03)
[2017-11-10] MEDS: Lisinopril 10 MG TAB PO SCH (09:03)
[2017-11-10] MEDS: Lantiseptic Ointment 130 GM JAR TOP SCH ×2 (09:06→19:54)
[2017-11-10] MEDS: Lorazepam 0.5 MG TAB PO PRN (17:38)
[2017-11-10] MEDS: Donepezil HCl 10 MG TAB PO SCH (19:53)
[2017-11-10] MEDS: Mirtazapine 15 MG TAB PO SCH (19:53)
[2017-11-11] MEDS: Lorazepam 1 MG TAB PO PRN (02:05)
[2017-11-11] MEDS: Levothyroxine Sodium 75 MCG TAB PO SCH (05:41)
[2017-11-11] MEDS: Polyethylene Glycol 3350 17 GM Packet PO SCH (07:56)
[2017-11-11] MEDS: Lisinopril 10 MG TAB PO SCH (07:56)
[2017-11-11] MEDS: Enoxaparin Sodium 30 MG/0.3 ML SYRINGE SC SCH (07:57)
[2017-11-11] MEDS: Lantiseptic Ointment 130 GM JAR TOP SCH ×2 (07:57→20:36)
[2017-11-11] MEDS: traMADol HCl 50 MG TAB PO PRN (10:32)
[2017-11-11] MEDS: Mirtazapine 15 MG TAB PO SCH (20:35)
[2017-11-11] MEDS: Donepezil HCl 10 MG TAB PO SCH (20:36)
[2017-11-12] MEDS: Levothyroxine Sodium 75 MCG TAB PO SCH (05:03)
[2017-11-12] MEDS: Lisinopril 10 MG TAB PO SCH (08:41)
[2017-11-12] MEDS: Lantiseptic Ointment 130 GM JAR TOP SCH ×2 (08:44→20:18)
[2017-11-12] MEDS: Enoxaparin Sodium 30 MG/0.3 ML SYRINGE SC SCH (08:44)
[2017-11-12] MEDS: Polyethylene Glycol 3350 17 GM Packet PO SCH (08:45)
[2017-11-12] MEDS: Mirtazapine 15 MG TAB PO SCH (20:17)
[2017-11-12] MEDS: Donepezil HCl 10 MG TAB PO SCH (20:18)
[2017-11-12] MEDS: Acetaminophen 325 MG TAB PO PRN (22:53)
[2017-11-13] MEDS: Levothyroxine Sodium 75 MCG TAB PO SCH (05:42)
[2017-11-13] MEDS: Lisinopril 10 MG TAB PO SCH (07:59)
[2017-11-13] MEDS: Polyethylene Glycol 3350 17 GM Packet PO SCH (07:59)
[2017-11-13] MEDS: Enoxaparin Sodium 30 MG/0.3 ML SYRINGE SC SCH (07:59)
[2017-11-13] MEDS: Lantiseptic Ointment 130 GM JAR TOP SCH ×2 (07:59→20:17)
[2017-11-13] MEDS ORDERED: Mirtazapine 15 MG TAB PO SCH (09:16)
--- NOTE | 2017-11-13 11:13 | PRG ---
DATE OF SERVICE: 11/13/2017 SUBJECTIVE: This morning, the patient is sitting up in a Heydi chair. Her son Kris is visiting. Sh rico is smiling and seems very content. The nurse said she still has episodes late in the afternoon whe re she gets more wound up and agitated. At nighttime she is still staying awake a lot. OBJECTIVE: The patient is alert, smiling, and appears very comfortable. She has her legs crossed at the ankles and she appears in no distress. Her vital signs show a temperature of 98.7. Her pulse i s 69, respirations 18, O2 sat 96% on room air, blood pressure 125/67. Her lungs are clear. Heart, r egular rate. Extremities, no edema. ASSESSMENT: 1. Urinary tract infection. A. Antibiotics with Cipro initiated on 10/26/2017. B. Asymptomatic with no fever as of 11/04/2017. C. Completed a 10-day course of Cipro as of 11/04/2017. 2. Generalized weakness. A. The patient tolerates sitting up in the chair and seemed very comfortable. She is able to wa lk with maximum assist only 4-5 feet as of 11/13/2017. 3. Fracture of the right side of the pubic symphysis secondary to a fall on 09/07/2017. A. Healing. The patient is not complaining of any pain in this areas of 11/13/2017. 4. Alzheimer dementia. A. Complicated by sundowning and insomnia as of 11/13/2017. 5. Severe expressive aphasia. 6. Hypertension. A. Controlled. 7. Hypothyroidism. 8. Urinary retention. A. 1400 mL residual with placement catheter on 09/10/2017. B. Trial of removal of catheter unsuccessful on 10/17/2017, requiring replacement of the cathet er on 10/18/2017. 9. Depression. A. Some of the agitation in the afternoon is probably sundowning, but there may also be some shahida ment of depression and fatigue and recurrence of the depression as of 11/05/2017. PLAN: Will continue present care. Continue efforts with physical therapy. We will try increasing t he Remeron to 45 mg at bedtime to see if this will help her rest.
[2017-11-13] MEDS: Acetaminophen 325 MG TAB PO PRN (16:16)
[2017-11-13] MEDS: Lorazepam 0.5 MG TAB PO PRN (17:02)
[2017-11-13] MEDS: Mirtazapine 15 MG TAB PO SCH (20:17)
[2017-11-13] MEDS: Donepezil HCl 10 MG TAB PO SCH (20:17)
[2017-11-13] MEDS: traMADol HCl 50 MG TAB PO PRN (21:29)
[2017-11-14] MEDS: Levothyroxine Sodium 75 MCG TAB PO SCH (05:44)
[2017-11-14] MEDS: Polyethylene Glycol 3350 17 GM Packet PO SCH (08:57)
[2017-11-14] MEDS: Lisinopril 10 MG TAB PO SCH (08:57)
[2017-11-14] MEDS: Enoxaparin Sodium 30 MG/0.3 ML SYRINGE SC SCH (08:57)
[2017-11-14] MEDS: Lantiseptic Ointment 130 GM JAR TOP SCH ×2 (08:58→20:37)
[2017-11-14] MEDS: Mirtazapine 15 MG TAB PO SCH (20:35)
[2017-11-14] MEDS: Donepezil HCl 10 MG TAB PO SCH (20:35)
[2017-11-15] MEDS: Levothyroxine Sodium 75 MCG TAB PO SCH (05:42)
[2017-11-15] MEDS: Enoxaparin Sodium 30 MG/0.3 ML SYRINGE SC SCH (09:50)
[2017-11-15] MEDS: Lisinopril 10 MG TAB PO SCH (09:51)
[2017-11-15] MEDS: Polyethylene Glycol 3350 17 GM Packet PO SCH (09:51)
[2017-11-15] MEDS: Lantiseptic Ointment 130 GM JAR TOP SCH ×2 (09:53→20:28)
[2017-11-15] MEDS: Mirtazapine 15 MG TAB PO SCH (20:27)
[2017-11-15] MEDS: Donepezil HCl 10 MG TAB PO SCH (20:27)
[2017-11-16] MEDS: Levothyroxine Sodium 75 MCG TAB PO SCH (05:10)
[2017-11-16] MEDS: Lisinopril 10 MG TAB PO SCH (08:24)
[2017-11-16] MEDS: Enoxaparin Sodium 30 MG/0.3 ML SYRINGE SC SCH (08:24)
[2017-11-16] MEDS: Lantiseptic Ointment 130 GM JAR TOP SCH ×2 (08:25→21:18)
[2017-11-16] MEDS: Polyethylene Glycol 3350 17 GM Packet PO SCH (08:25)
--- NOTE | 2017-11-16 13:26 | PRG ---
DATE OF SERVICE: 11/16/2017 SUBJECTIVE: The patient's son, Kris, said that she did good over the weekend. He took her for a ri de in a wheelchair that she enjoyed. She is eating better. Last night she seemed to have slept well . Physical therapy has already tried to work with her this morning, but she just would not stand for them. She would just stiffened her legs and her feet would slip out from under her. OBJECTIVE: GENERAL: The patient is sitting up in a Heydi chair. She is smiling and looks very comfortable. She is not able to communicate due to her severe expressive aphasia. VITAL SIGNS: Her temperature this morning was 99.3, pulse 101, respirations 20, O2 saturation 97% on room air, and blood pressure 141/68. LUNGS: Clear. HEART: Regular rate. EXTREMITIES: No edema. ASSESSMENT: 1. Urinary tract infection. A. Antibiotics with Cipro initiated on 10/26/2017. B. Asymptomatic with no fever as of 11/04/2017. C. Completed a 10-day course of Cipro as of 11/04/2017. 2. Generalized weakness. A. Patient tolerating sitting up in a chair. Today, she was not able to stand due to stiffenin g and feet sliding from beneath her as of 11/16/2017. 3. Fracture of the right side of the pubic symphysis secondary to a fall on 09/07/2017. A. Healing. The patient is not complaining of any pain in this areas of 11/13/2017. 4. Alzheimer dementia. A. Complicated by sundowning and insomnia. B. Sundowning and agitation little improved as of 11/16/2017. 5. Severe expressive aphasia. 6. Hypertension. A. Controlled. 7. Hypothyroidism. 8. Urinary retention. A. 1400 mL residual with placement catheter on 09/10/2017. B. Trial of removal of catheter unsuccessful on 10/17/2017, requiring replacement of the cathet er on 10/18/2017. 9. Depression. A. Some of the agitation in the afternoon is probably sundowning, but there may also be some shahida ment of depression and fatigue and recurrence of the depression as of 11/05/2017. B. Improved as of 11/16/2017. PLAN: We will continue present care. Continue efforts with physical therapy.
[2017-11-16] MEDS: Mirtazapine 15 MG TAB PO SCH (21:08)
[2017-11-16] MEDS: Donepezil HCl 10 MG TAB PO SCH (21:10)
[2017-11-17] MEDS: Levothyroxine Sodium 75 MCG TAB PO SCH (05:46)
[2017-11-17] MEDS: Lisinopril 10 MG TAB PO SCH (08:32)
[2017-11-17] MEDS: Lantiseptic Ointment 130 GM JAR TOP SCH ×2 (08:34→20:30)
[2017-11-17] MEDS: Enoxaparin Sodium 30 MG/0.3 ML SYRINGE SC SCH (08:34)
[2017-11-17] MEDS: Polyethylene Glycol 3350 17 GM Packet PO SCH (08:34)
[2017-11-17] MEDS: Mirtazapine 15 MG TAB PO SCH (20:28)
[2017-11-17] MEDS: Donepezil HCl 10 MG TAB PO SCH (20:29)
[2017-11-18] MEDS: Levothyroxine Sodium 75 MCG TAB PO SCH (05:37)
[2017-11-18] MEDS: Polyethylene Glycol 3350 17 GM Packet PO SCH (08:35)
[2017-11-18] MEDS: Enoxaparin Sodium 30 MG/0.3 ML SYRINGE SC SCH (08:35)
[2017-11-18] MEDS: Lisinopril 10 MG TAB PO SCH (08:35)
[2017-11-18] MEDS: Lantiseptic Ointment 130 GM JAR TOP SCH ×2 (08:40→20:04)
--- NOTE | 2017-11-18 10:37 | PRG ---
DATE OF SERVICE: 11/18/2017 SUBJECTIVE: The patient is up in a geriatric chair. She is smiling and her son, Kris, is with her and said yesterday seemed to have been a good day for her. Physical therapy continues to work with [facility] and yesterday she was walking up to 10 feet with a rolling walker and maximum assistance. OBJECTIVE: The patient is lying in her Heydi chair. She seems happy and very comfortable, in no dist ress. Her temperature is 98.1, pulse 91, respirations 18, O2 saturation 98% on room air, blood press ure 142/68. Lungs are clear. Heart, regular rate. Extremities, no edema. ASSESSMENT: 1. Urinary tract infection. A. Improved. The patient walking up to 10 feet with a rolling walker and maximum assist as of 0 11/18/2017. B. Asymptomatic with no fever as of 11/04/2017. C. Completed a 10-day course of Cipro as of 11/04/2017. 2. Generalized weakness. A. Patient tolerating sitting up in a chair. Today, she was not able to stand due to stiffenin g and feet sliding from beneath her as of 11/16/2017. 3. Fracture of the right side of the pubic symphysis secondary to a fall on 09/07/2017. A. Healing. The patient is not complaining of any pain in this areas of 11/13/2017. 4. Alzheimer dementia. A. Complicated by sundowning and insomnia. B. Sundowning and agitation little improved as of 11/18/2017. 5. Severe expressive aphasia. 6. Hypertension. A. Controlled. 7. Hypothyroidism. 8. Urinary retention. A. 1400 mL residual with placement catheter on 09/10/2017. B. Trial of removal of catheter unsuccessful on 10/17/2017, requiring replacement of the cathet er on 10/18/2017. 9. Depression. A. Some of the agitation in the afternoon is probably sundowning, but there may also be some shahida ment of depression and fatigue and recurrence of the depression as of 11/05/2017. B. Improved as of 11/18/2017. PLAN: Continue continued efforts with physical therapy. The patient is making a little progress.
[2017-11-18] MEDS: Lorazepam 0.5 MG TAB PO PRN (17:17)
[2017-11-18] MEDS: Donepezil HCl 10 MG TAB PO SCH (20:04)
[2017-11-18] MEDS: Mirtazapine 15 MG TAB PO SCH (20:04)
[2017-11-19] MEDS: Levothyroxine Sodium 75 MCG TAB PO SCH (05:08)
[2017-11-19] MEDS: Enoxaparin Sodium 30 MG/0.3 ML SYRINGE SC SCH (09:01)
[2017-11-19] MEDS: Lisinopril 10 MG TAB PO SCH (09:01)
[2017-11-19] MEDS: Polyethylene Glycol 3350 17 GM Packet PO SCH (09:02)
[2017-11-19] MEDS: Lantiseptic Ointment 130 GM JAR TOP SCH ×2 (09:05→20:09)
[2017-11-19] MEDS: traMADol HCl 50 MG TAB PO PRN (20:07)
[2017-11-19] MEDS: Donepezil HCl 10 MG TAB PO SCH (20:08)
[2017-11-19] MEDS: Mirtazapine 15 MG TAB PO SCH (20:08)
[2017-11-19] MEDS: Lorazepam 1 MG TAB PO PRN (20:59)
[2017-11-20] MEDS: Levothyroxine Sodium 75 MCG TAB PO SCH (05:01)
[2017-11-20] MEDS: Enoxaparin Sodium 30 MG/0.3 ML SYRINGE SC SCH (08:35)
[2017-11-20] MEDS: Lantiseptic Ointment 130 GM JAR TOP SCH (08:36)
[2017-11-20] MEDS: Lisinopril 10 MG TAB PO SCH (08:37)
[2017-11-20] MEDS: Polyethylene Glycol 3350 17 GM Packet PO SCH (08:37)
--- NOTE | 2017-11-20 13:46 | PRG ---
DATE OF SERVICE: 11/20/2017 SUBJECTIVE: The patient is up in a Heydi chair, sitting upright (00:16) smiling, eating breakfa st. Her son is in attendance. He said last night she apparently was (00:29) and did not sleep as much. She does work with physical therapy and it is difficult to understand what they want. She sometimes stiff in her legs making it very difficult to get her up, other times she just pops up. S he is walking up to 10 feet with a rolling walker and maximum assist and requires maximum assistance still with any transfer. OBJECTIVE: GENERAL: The patient is alert and appears very comfortable and in no distress. VITAL SIGNS: Her temperature is 97.2, respirations 20, pulse 92, O2 sat 99% on room air, blood press ure 128/61. LUNGS: Clear. HEART: Regular rate. EXTREMITIES: No edema. ASSESSMENT: 1. Urinary tract infection. A. Resolved, completed a 10-day course of Cipro on 11/04/2017. 2. Generalized weakness. A. The patient has been tolerating sitting up in a chair. She walks up to 10 feet with a yadira g walker and maximum assist, requires maximum assistance with transfers as of 11/20/2017. 3. Fracture of the right side of the pubic symphysis secondary to a fall on 09/07/2017. A. Healing. The patient is not complaining of any pain in this areas of 11/13/2017. 4. Alzheimer dementia. A. Complicated by sundowning and insomnia. B. A little improved, but still has some episodes where she is not sleeping well and is agitated as of 11/20/2017. 5. Severe expressive aphasia. 6. Hypertension. A. Controlled. 7. Hypothyroidism. 8. Urinary retention. A. 1400 mL residual with placement catheter on 09/10/2017. B. Trial of removal of catheter unsuccessful on 10/17/2017, requiring replacement of the cathet er on 10/18/2017. 9. Depression. A. Some of the agitation in the afternoon is probably sundowning, but there may also be some shahida ment of depression and fatigue and recurrence of the depression as of 11/05/2017. B. Improved as of 11/20/2017. PLAN: Continue efforts at physical therapy. The patient's dementia is certainly making it difficult for patient's progress with her therapy due to her lack of understanding. We will continue efforts with therapy.
[2017-11-20] MEDS: traMADol HCl 50 MG TAB PO PRN (18:15)
[2017-11-20] MEDS: Lorazepam 1 MG TAB PO PRN (18:15)
[2017-11-21] MEDS: Donepezil HCl 10 MG TAB PO SCH ×2 (00:19→19:27)
[2017-11-21] MEDS: Lantiseptic Ointment 130 GM JAR TOP SCH ×3 (00:19→19:29)
[2017-11-21] MEDS: Mirtazapine 15 MG TAB PO SCH ×2 (00:20→19:28)
[2017-11-21] MEDS: Levothyroxine Sodium 75 MCG TAB PO SCH (05:26)
[2017-11-21] MEDS: Lisinopril 10 MG TAB PO SCH (09:49)
[2017-11-21] MEDS: Enoxaparin Sodium 30 MG/0.3 ML SYRINGE SC SCH (09:50)
[2017-11-21] MEDS: Polyethylene Glycol 3350 17 GM Packet PO SCH (09:51)
[2017-11-21] MEDS: traMADol HCl 50 MG TAB PO PRN (19:27)
[2017-11-21] MEDS: Lorazepam 1 MG TAB PO PRN (19:28)
[2017-11-22] MEDS: Levothyroxine Sodium 75 MCG TAB PO SCH (05:23)
[2017-11-22] MEDS: Enoxaparin Sodium 30 MG/0.3 ML SYRINGE SC SCH (08:08)
[2017-11-22] MEDS: Lantiseptic Ointment 130 GM JAR TOP SCH ×2 (08:08→20:14)
[2017-11-22] MEDS: Lisinopril 10 MG TAB PO SCH (08:08)
[2017-11-22] MEDS: Polyethylene Glycol 3350 17 GM Packet PO SCH (08:08)
[2017-11-22] MEDS: traMADol HCl 50 MG TAB PO PRN (14:21)
[2017-11-22] MEDS: Lorazepam 1 MG TAB PO PRN (17:16)
[2017-11-22] MEDS: Donepezil HCl 10 MG TAB PO SCH (20:14)
[2017-11-22] MEDS: Mirtazapine 15 MG TAB PO SCH (20:14)
[2017-11-23] MEDS: Levothyroxine Sodium 75 MCG TAB PO SCH (05:28)
[2017-11-23] MEDS: Polyethylene Glycol 3350 17 GM Packet PO SCH (08:32)
[2017-11-23] MEDS: Enoxaparin Sodium 30 MG/0.3 ML SYRINGE SC SCH (08:32)
[2017-11-23] MEDS: Lisinopril 10 MG TAB PO SCH (08:32)
[2017-11-23] MEDS: Acetaminophen 325 MG TAB PO PRN (08:34)
[2017-11-23] MEDS: Lantiseptic Ointment 130 GM JAR TOP SCH ×2 (08:35→19:41)
[2017-11-23] MEDS: Lorazepam 0.5 MG TAB PO PRN (15:18)
--- NOTE | 2017-11-23 15:54 | PRG ---
DATE OF SERVICE: 11/23/2017 SUBJECTIVE: This morning the patient has been out and has been around the hospital halls in her Heydi chair, pushed by her son, Kris. The patient has had a good weekend. Yesterday just seemed a littl e uncomfortable and was given some Tylenol that seemed to help. She did not seem really agitated acc ording to Kris. OBJECTIVE: This morning the patient is sitting up in a Heydi chair. She is smiling, looks very comfo rtable and in no distress. Her vital signs show a temperature 97.6, pulse 95, respirations 18, O2 sa t 100% on room air, blood pressure 156/84. Lungs are clear. Heart, regular rate. Extremities, no e candice. ASSESSMENT: 1. Urinary tract infection. A. Resolved, completed a 10-day course of Cipro on 11/04/2017. 2. Generalized weakness. A. The patient has been tolerating sitting up in a chair. She walks up to 10 feet with a yadira g walker and maximum assist, requires maximum assistance with transfers as of 11/23/2017. 3. Fracture of the right side of the pubic symphysis secondary to a fall on 09/07/2017. A. Healing. No pain in this area of the fracture as of 11/23/2017.. 4. Alzheimer dementia. A. Complicated by sundowning and insomnia. B. The episodes of the agitation seemed to be a little improved as of 11/23/2017. 5. Severe expressive aphasia. 6. Hypertension. A. Controlled. 7. Hypothyroidism. 8. Urinary retention. A. 1400 mL residual with placement catheter on 09/10/2017. B. Trial of removal of catheter unsuccessful on 10/17/2017, requiring replacement of the cathet er on 10/18/2017. 9. Depression. A. Some of the agitation in the afternoon is probably sundowning, but there may also be some shahida ment of depression and fatigue and recurrence of the depression as of 11/05/2017. B. Improved as of 11/23/2017. PLAN: Continue present care. Continue efforts with physical therapy.
[2017-11-23] MEDS: Donepezil HCl 10 MG TAB PO SCH (19:39)
[2017-11-23] MEDS: traMADol HCl 50 MG TAB PO PRN (19:39)
[2017-11-23] MEDS: Mirtazapine 15 MG TAB PO SCH (19:39)
[2017-11-23] MEDS: Lorazepam 1 MG TAB PO PRN (19:43)
[2017-11-24] MEDS: Levothyroxine Sodium 75 MCG TAB PO SCH (05:28)
[2017-11-24] MEDS: Polyethylene Glycol 3350 17 GM Packet PO SCH (08:57)
[2017-11-24] MEDS: Enoxaparin Sodium 30 MG/0.3 ML SYRINGE SC SCH (08:57)
[2017-11-24] MEDS: Lantiseptic Ointment 130 GM JAR TOP SCH ×2 (08:59→20:26)
[2017-11-24] MEDS: Lisinopril 10 MG TAB PO SCH (08:59)
[2017-11-24] MEDS: traMADol HCl 50 MG TAB PO PRN (20:24)
[2017-11-24] MEDS: Donepezil HCl 10 MG TAB PO SCH (20:24)
[2017-11-24] MEDS: Mirtazapine 15 MG TAB PO SCH (20:24)
[2017-11-24] MEDS: Lorazepam 1 MG TAB PO PRN (20:25)
[2017-11-25] MEDS: Levothyroxine Sodium 75 MCG TAB PO SCH (05:22)
[2017-11-25] MEDS: Polyethylene Glycol 3350 17 GM Packet PO SCH (08:22)
[2017-11-25] MEDS: Lisinopril 10 MG TAB PO SCH (08:22)
[2017-11-25] MEDS: Enoxaparin Sodium 30 MG/0.3 ML SYRINGE SC SCH (08:24)
[2017-11-25] MEDS: Lantiseptic Ointment 130 GM JAR TOP SCH ×2 (08:27→20:34)
--- NOTE | 2017-11-25 11:02 | PRG ---
DATE OF SERVICE: 11/25/2017 SUBJECTIVE: The patient is lying in bed this morning, looks very comfortable: Nurses report no tan ge in her condition. Her son, Kris, is with her this morning which he usually is and he said she gomez s been very comfortable this morning. Yesterday went well for her. Physical therapy, still works wi th her, but 10-12 feet is about all she can do and that is not every day, hat is in regards to walkin g, within she uses a rolling walker and maximum assist still, requires maximum assist with any transf er. OBJECTIVE: The patient is lying comfortably in bed, is alert. Her temp 97.6, pulse 95, respirations 18, O2 sat was 100% on room air, blood pressure 162/77, earlier 138/84. Lungs are clear. Heart, re gular rate. Extremities: No edema, no pain with compression of the pelvic area. ASSESSMENT: 1. Urinary tract infection. A. Resolved, completed a 10-day course of Cipro on 11/04/2017. 2. Generalized weakness. A. The patient is tolerating sitting up in a Heydi chair. She can walk up to 10 feet with a roll ing walker and maximum assist. Requires maximum assistance with transfers. Unchanged as of 11/25/2017. 3. Fracture of the right side of the pubic symphysis secondary to a fall on 09/07/2017. A. Healing. No pain in this area of the fracture as of 11/25/2017.. 4. Alzheimer dementia. A. Complicated by sundowning and insomnia. B. Sundowning symptoms are improved as of 11/25/2017. 5. Severe expressive aphasia. 6. Hypertension. A. Controlled. 7. Hypothyroidism. 8. Urinary retention. A. 1400 mL residual with placement catheter on 09/10/2017. B. Trial of removal of catheter unsuccessful on 10/17/2017, requiring replacement of the cathet er on 10/18/2017. 9. Depression. A. Some of the agitation in the afternoon is probably sundowning, but there may also be some shahida ment of depression and fatigue and recurrence of the depression as of 11/05/2017. B. Improved as of 11/25/2017. PLAN: Continue present care. I visited with patient's son, Kris, regarding care after discharge. Her condition has been one of very, very slow progress, probably due to the Alzheimer dementia interf ering with her understanding ability to assist with physical therapy. Kris understands that her lev el of care will exceed what he could give in the home. [employer] will visit with Kris to help him find an appropriate home for Sadie.
[2017-11-25] MEDS: Lorazepam 1 MG TAB PO PRN (16:37)
[2017-11-25] MEDS: Lorazepam 0.5 MG TAB PO PRN (20:29)
[2017-11-25] MEDS: traMADol HCl 50 MG TAB PO PRN (20:32)
[2017-11-25] MEDS: Mirtazapine 15 MG TAB PO SCH (20:33)
[2017-11-25] MEDS: Donepezil HCl 10 MG TAB PO SCH (20:33)
[2017-11-26] MEDS: Levothyroxine Sodium 75 MCG TAB PO SCH (05:23)
[2017-11-26] MEDS: Enoxaparin Sodium 30 MG/0.3 ML SYRINGE SC SCH (08:14)
[2017-11-26] MEDS: Lisinopril 10 MG TAB PO SCH (08:15)
[2017-11-26] MEDS: Lantiseptic Ointment 130 GM JAR TOP SCH ×2 (08:15→20:06)
[2017-11-26] MEDS: Polyethylene Glycol 3350 17 GM Packet PO SCH (08:15)
[2017-11-26] MEDS: Lorazepam 1 MG TAB PO PRN (17:03)
[2017-11-26] MEDS: Mirtazapine 15 MG TAB PO SCH (20:06)
[2017-11-26] MEDS: Donepezil HCl 10 MG TAB PO SCH (20:06)
[2017-11-26] MEDS: traMADol HCl 50 MG TAB PO PRN (20:10)
[2017-11-26] MEDS: Lorazepam 0.5 MG TAB PO PRN (22:25)
[2017-11-27] MEDS: Levothyroxine Sodium 75 MCG TAB PO SCH (05:08)
[2017-11-27] MEDS: Enoxaparin Sodium 30 MG/0.3 ML SYRINGE SC SCH (10:11)
[2017-11-27] MEDS: Lantiseptic Ointment 130 GM JAR TOP SCH ×2 (10:11→20:04)
[2017-11-27] MEDS: Lisinopril 10 MG TAB PO SCH (10:11)
[2017-11-27] MEDS: Polyethylene Glycol 3350 17 GM Packet PO SCH (10:12)
[2017-11-27] MEDS: Mupirocin 2% Ointment 22 GM Tube TOP SCH ×3 (10:12→20:04)
--- NOTE | 2017-11-27 13:45 | PRG ---
DATE OF SERVICE: 11/27/2017 SUBJECTIVE: Nurses report no change in patient's condition. This morning, patient is still in bed, just waking up. Her son is with her and said things have been about the same. He has not yet met [facility] social services assistant. OBJECTIVE: The patient lying in bed, waking up. She appears comfortable and not in any distress. T emp 97.2, pulse 93, respirations 16, O2 sat 99% on room air, blood pressure 125/78. Lungs, clear. H eart, regular rate. Extremities, no edema nor areas of tenderness. Face: Patient has several spots that have been excoriated or a little bit red. ASSESSMENT: 1. Urinary tract infection. A. Resolved, completed a 10-day course of Cipro on 11/27/2017. 2. Generalized weakness. A. The patient is tolerating sitting up in a Heydi chair. She can walk up to 10 feet with a roll ing walker and maximum assist. Requires maximum assistance with transfers. Unchanged as of 11/25/2017. 3. Fracture of the right side of the pubic symphysis secondary to a fall on 09/07/2017. A. Healing. No pain in this area of the fracture as of 11/27/2017.. 4. Alzheimer dementia. A. Complicated by sundowning and insomnia. B. Sundowning symptoms are improved as of 11/27/2017. 5. Severe expressive aphasia. 6. Hypertension. A. Controlled. 7. Hypothyroidism. 8. Urinary retention. A. 1400 mL residual with placement catheter on 09/10/2017. B. Trial of removal of catheter unsuccessful on 10/17/2017, requiring replacement of the cathet er on 10/18/2017. 9. Depression. A. Some of the agitation in the afternoon is probably sundowning, but there may also be some shahida ment of depression and fatigue and recurrence of the depression as of 11/05/2017. B. Improved as of 11/25/2017. 10. Some scratch areas on the face with local irritation. PLAN: Continue present care. Continue physical therapy. Kris is exploring care home placement. We will meet with social services assistant. We will apply Bactroban ointment to the face, 3 times a day unt il these resolved.
[2017-11-27] MEDS: Acetaminophen 325 MG TAB PO PRN (17:49)
[2017-11-27] MEDS: Lorazepam 1 MG TAB PO PRN (17:49)
[2017-11-27] MEDS: traMADol HCl 50 MG TAB PO PRN (20:03)
[2017-11-27] MEDS: Donepezil HCl 10 MG TAB PO SCH (20:04)
[2017-11-27] MEDS: Mirtazapine 15 MG TAB PO SCH (20:05)
[2017-11-28] MEDS: Levothyroxine Sodium 75 MCG TAB PO SCH (05:19)
[2017-11-28] MEDS: Enoxaparin Sodium 30 MG/0.3 ML SYRINGE SC SCH (08:39)
[2017-11-28] MEDS: Mupirocin 2% Ointment 22 GM Tube TOP SCH ×3 (08:40→20:29)
[2017-11-28] MEDS: Lantiseptic Ointment 130 GM JAR TOP SCH ×2 (08:40→20:28)
[2017-11-28] MEDS: Lisinopril 10 MG TAB PO SCH (08:40)
[2017-11-28] MEDS: Polyethylene Glycol 3350 17 GM Packet PO SCH (08:40)
[2017-11-28] MEDS: Acetaminophen 325 MG TAB PO PRN (16:32)
[2017-11-28] MEDS: Mirtazapine 15 MG TAB PO SCH (20:29)
[2017-11-28] MEDS: Donepezil HCl 10 MG TAB PO SCH (20:29)
[2017-11-28] MEDS: Lorazepam 1 MG TAB PO PRN (22:53)
[2017-11-29] MEDS: Levothyroxine Sodium 75 MCG TAB PO SCH (05:47)
[2017-11-29] MEDS: Enoxaparin Sodium 30 MG/0.3 ML SYRINGE SC SCH (09:14)
[2017-11-29] MEDS: Lisinopril 10 MG TAB PO SCH (09:14)
[2017-11-29] MEDS: Polyethylene Glycol 3350 17 GM Packet PO SCH (09:14)
[2017-11-29] MEDS: Mupirocin 2% Ointment 22 GM Tube TOP SCH ×3 (09:15→20:06)
[2017-11-29] MEDS: Lantiseptic Ointment 130 GM JAR TOP SCH ×2 (09:15→20:05)
[2017-11-29] MEDS: Donepezil HCl 10 MG TAB PO SCH (20:05)
[2017-11-29] MEDS: Mirtazapine 15 MG TAB PO SCH (20:06)
[2017-11-29] MEDS: Lorazepam 1 MG TAB PO PRN (20:12)
[2017-11-30] MEDS: Levothyroxine Sodium 75 MCG TAB PO SCH (05:41)
[2017-11-30] MEDS: Enoxaparin Sodium 30 MG/0.3 ML SYRINGE SC SCH (08:19)
[2017-11-30] MEDS: Lisinopril 10 MG TAB PO SCH (08:19)
[2017-11-30] MEDS: Mupirocin 2% Ointment 22 GM Tube TOP SCH ×3 (08:20→20:07)
[2017-11-30] MEDS: Polyethylene Glycol 3350 17 GM Packet PO SCH (08:21)
[2017-11-30] MEDS: Lantiseptic Ointment 130 GM JAR TOP SCH ×2 (08:21→20:06)
[2017-11-30] MEDS: Clindamycin 150 MG CAP PO SCH ×2 (09:09→15:01)
--- NOTE | 2017-11-30 12:54 | PRG ---
DATE OF SERVICE: 11/30/2017 SUBJECTIVE: The patient is up this morning in her Heydi chair sleeping, but was waking up during my v isit. Her son, Kris is with her, he said she was up all night. She was tried on an Ativan last nig ht, but it did not help and then they got her up about 5 into Heydi chair and she finally went to [facility] in the Heydi chair. This occurs several nights a week. OBJECTIVE: The patient is lying quietly in the Heydi chair. She looks tired, but she is awake. Her temperature is 97.6, pulse 107, respirations 22, O2 sat 97% on room air, blood pressure 133/62. Lung s are clear. Heart, regular rate. Skin; the patient has still the excoriated areas with some rednes s and a little crusting in several spots on her place that do not look any better. ASSESSMENT: 1. Urinary tract infection. A. Resolved, completed a 10-day course of Cipro on 11/27/2017. 2. Generalized weakness. A. The patient is tolerating sitting up in a Heydi chair. She can walk up to 10 feet with a roll ing walker and maximum assist. Requires maximum assistance with transfers. Unchanged as of 11/25/2017. 3. Fracture of the right side of the pubic symphysis secondary to a fall on 09/07/2017. A. Healing. No pain in this area of the fracture as of 11/30/2017.. 4. Alzheimer dementia. A. Complicated by sundowning and insomnia. B. Persist with particularly trouble with insomnia as of 11/30/2017. 5. Severe expressive aphasia. 6. Hypertension. A. Controlled. 7. Hypothyroidism. 8. Urinary retention. A. 1400 mL residual with placement catheter on 09/10/2017. B. Trial of removal of catheter unsuccessful on 10/17/2017, requiring replacement of the cathet er on 10/18/2017. 9. Depression. A. Some of the agitation in the afternoon is probably sundowning, but there may also be some shahida ment of depression and fatigue and recurrence of the depression as of 11/05/2017. B. Improved as of 11/25/2017. 10. Impetigo on the face. A. Has not been responsive to the Bactroban ointment as of 11/30/2017. PLAN: We will place patient on clindamycin for the impetigo on the face, continue the Bactroban and also use the Bactroban on the fingernails. Will try the patient on Restoril 15 mg at bedtime. Her s on, Kris, plans on looking at the nursing homes in [facility].
[2017-11-30] MEDS: Donepezil HCl 10 MG TAB PO SCH (20:05)
[2017-11-30] MEDS: Mirtazapine 15 MG TAB PO SCH (20:05)
[2017-11-30] MEDS: Temazepam 15 MG CAP PO SCH (20:05)
[2017-12-01 00:17] VITALS: BMI 17.9
[2017-12-01] MEDS: Clindamycin 150 MG CAP PO SCH ×4 (00:38→23:48)
[2017-12-01] MEDS: Levothyroxine Sodium 75 MCG TAB PO SCH (05:15)
[2017-12-01] MEDS: Lisinopril 10 MG TAB PO SCH (08:14)
[2017-12-01] MEDS: Polyethylene Glycol 3350 17 GM Packet PO SCH (08:15)
[2017-12-01] MEDS: Enoxaparin Sodium 30 MG/0.3 ML SYRINGE SC SCH (08:15)
[2017-12-01] MEDS: Mupirocin 2% Ointment 22 GM Tube TOP SCH ×3 (08:15→20:26)
[2017-12-01] MEDS: Lantiseptic Ointment 130 GM JAR TOP SCH ×2 (08:15→20:26)
[2017-12-01] MEDS: traMADol HCl 50 MG TAB PO PRN (16:01)
[2017-12-01] MEDS: Lorazepam 1 MG TAB PO PRN (16:56)
[2017-12-01] MEDS: Mirtazapine 15 MG TAB PO SCH (20:25)
[2017-12-01] MEDS: Donepezil HCl 10 MG TAB PO SCH (20:25)
[2017-12-01] MEDS: Temazepam 15 MG CAP PO SCH (20:26)
[2017-12-02] MEDS: Levothyroxine Sodium 75 MCG TAB PO SCH (05:25)
[2017-12-02] MEDS: Mupirocin 2% Ointment 22 GM Tube TOP SCH ×3 (09:25→20:34)
[2017-12-02] MEDS: Lisinopril 10 MG TAB PO SCH (09:27)
[2017-12-02] MEDS: Clindamycin 150 MG CAP PO SCH ×2 (09:27→15:57)
[2017-12-02] MEDS: Polyethylene Glycol 3350 17 GM Packet PO SCH (09:28)
[2017-12-02] MEDS: Enoxaparin Sodium 30 MG/0.3 ML SYRINGE SC SCH (09:28)
[2017-12-02] MEDS: Lantiseptic Ointment 130 GM JAR TOP SCH ×2 (09:28→20:34)
--- NOTE | 2017-12-02 10:11 | PRG ---
DATE OF SERVICE: 12/02/2017 SUBJECTIVE: The patient's son, Kris is with her. He said she is sleeping better at night since her Restoril has been started. Kris is looking at nursing homes for placement. His brother, Narendra, wi ll be coming up from [place] this weekend and they will both be reviewing the local homes and make a decision on which one that they would like their mom admitted to. OBJECTIVE: The patient is lying in bed awake, appears in no distress. Her vital signs show a temper ature 98.7, pulse 90, respirations 18, O2 sat 95% on room air, blood pressure 137/56. Lungs are clear. Heart, regular rate. Extremities, no edema. Face, the areas of little superficial ulceration and yellow colored crusting is improved, the localized redness is improved. ASSESSMENT: 1. Urinary tract infection. A. Resolved, completed a 10-day course of Cipro on 11/27/2017. 2. Generalized weakness. A. The patient is tolerating sitting up in a Heydi chair. She can walk up to 10 feet with a roll ing walker and maximum assist. Requires maximum assistance with transfers. Unchanged as of 12/02/2017. 3. Fracture of the right side of the pubic symphysis secondary to a fall on 09/07/2017. A. Healing. No pain in this area of the fracture as of 11/30/2017.. 4. Alzheimer dementia. A. Complicated by sundowning and insomnia. B. Insomnia seemed to be controlled on the Restoril as of 12/02/2017. 5. Severe expressive aphasia. 6. Hypertension. A. Controlled. 7. Hypothyroidism. 8. Urinary retention. A. 1400 mL residual with placement catheter on 09/10/2017. B. Trial of removal of catheter unsuccessful on 10/17/2017, requiring replacement of the cathet er on 10/18/2017. 9. Depression. A. Some of the agitation in the afternoon is probably sundowning, but there may also be some shahida ment of depression and fatigue and recurrence of the depression as of 11/05/2017. B. Improved as of 11/25/2017. 10. Impetigo on the face. A. Has not been responsive to the Bactroban ointment as of 11/30/2017. B. Improved as of 12/02/2017. PLAN: Continue present care. Continue efforts at physical therapy. The patient's sons, Kris and Narendra will be looking at nursing homes together this weekend and make a decision on which home that [facility] will select for their mom. Anticipate probable discharge to the skilled nursing next week.
[2017-12-02] MEDS: traMADol HCl 50 MG TAB PO PRN (15:56)
[2017-12-02] MEDS: Lorazepam 1 MG TAB PO PRN (15:56)
[2017-12-02] MEDS: Donepezil HCl 10 MG TAB PO SCH (20:33)
[2017-12-02] MEDS: Mirtazapine 15 MG TAB PO SCH (20:33)
[2017-12-02] MEDS: Temazepam 15 MG CAP PO SCH (20:35)
[2017-12-03] MEDS: Clindamycin 150 MG CAP PO SCH ×3 (00:16→16:58)
[2017-12-03] MEDS: Levothyroxine Sodium 75 MCG TAB PO SCH (06:15)
[2017-12-03] MEDS: Mupirocin 2% Ointment 22 GM Tube TOP SCH ×3 (08:18→20:51)
[2017-12-03] MEDS: Lisinopril 10 MG TAB PO SCH (08:18)
[2017-12-03] MEDS: Enoxaparin Sodium 30 MG/0.3 ML SYRINGE SC SCH (08:18)
[2017-12-03] MEDS: Lantiseptic Ointment 130 GM JAR TOP SCH ×2 (08:19→20:48)
[2017-12-03] MEDS: Polyethylene Glycol 3350 17 GM Packet PO SCH (08:19)
[2017-12-03] MEDS: traMADol HCl 50 MG TAB PO PRN ×2 (15:18→22:41)
[2017-12-03] MEDS: Lorazepam 1 MG TAB PO PRN (15:18)
[2017-12-03] MEDS: Donepezil HCl 10 MG TAB PO SCH (20:47)
[2017-12-03] MEDS: Mirtazapine 15 MG TAB PO SCH (20:47)
[2017-12-03] MEDS: Temazepam 15 MG CAP PO SCH (20:49)
[2017-12-03] MEDS: Lorazepam 0.5 MG TAB PO PRN (22:41)
[2017-12-04] MEDS: Clindamycin 150 MG CAP PO SCH ×4 (00:17→23:45)
[2017-12-04] MEDS: Levothyroxine Sodium 75 MCG TAB PO SCH (06:04)
[2017-12-04] MEDS: Enoxaparin Sodium 30 MG/0.3 ML SYRINGE SC SCH (08:21)
[2017-12-04] MEDS: Mupirocin 2% Ointment 22 GM Tube TOP SCH ×3 (08:22→20:49)
[2017-12-04] MEDS: Lantiseptic Ointment 130 GM JAR TOP SCH ×2 (08:22→20:49)
[2017-12-04] MEDS: Lisinopril 10 MG TAB PO SCH (08:22)
[2017-12-04] MEDS: Polyethylene Glycol 3350 17 GM Packet PO SCH (08:23)
--- NOTE | 2017-12-04 11:11 | PRG ---
DATE OF SERVICE: 12/04/2017 SUBJECTIVE: The patient's son, Kris, is with her today. He said she seems to be doing very well. Nurses report no problems. She has been sleeping good at night. OBJECTIVE: The patient is alert, sitting up in her Heydi chair eating her breakfast. She looks overa ll very alert and very comfortable. Her lower legs are crossed. Her vital signs show a temperature of 97.2, pulse 89, respirations 20, blood pressure 114/58, O2 sat 98% on room air. Lungs are clear. Heart, regular rate. The lesions on the face look much better. There is no redness. The scabs are all dried and are smaller. ASSESSMENT: 1. Urinary tract infection. A. Resolved, completed a 10-day course of Cipro on 11/27/2017. 2. Generalized weakness. A. The patient is tolerating sitting up in a Hyedi chair. She can walk up to 10 feet with a roll ing walker and maximum assist. Requires maximum assistance with transfers. Unchanged as of 12/02/2017. 3. Fracture of the right side of the pubic symphysis secondary to a fall on 09/07/2017. A. Healed as of 12/04/2017. 4. Alzheimer dementia. A. Complicated by sundowning and insomnia. B. Insomnia controlled with the Restoril as of 12/04/2017. 5. Severe expressive aphasia. 6. Hypertension. A. Controlled. 7. Hypothyroidism. 8. Urinary retention. A. 1400 mL residual with placement catheter on 09/10/2017. B. Trial of removal of catheter unsuccessful on 10/17/2017, requiring replacement of the cathet er on 10/18/2017. 9. Depression. A. Some of the agitation in the afternoon is probably sundowning, but there may also be some shahida ment of depression and fatigue and recurrence of the depression as of 11/05/2017. B. Improved as of 12/04/2017. 10. Impetigo on the face. A. Has not been responsive to the Bactroban ointment as of 11/30/2017. B. Continued to improve as of 12/04/2017. PLAN: Continue present care. Continue physical therapy. The patient's son, Kris and other son, Antonio menon, will be looking at facilities in the area this weekend for eventual transfer.
[2017-12-04] MEDS: traMADol HCl 50 MG TAB PO PRN ×2 (15:42→23:58)
[2017-12-04] MEDS: Temazepam 15 MG CAP PO SCH (20:48)
[2017-12-04] MEDS: Donepezil HCl 10 MG TAB PO SCH (20:49)
[2017-12-04] MEDS: Mirtazapine 15 MG TAB PO SCH (20:49)
[2017-12-04] MEDS: Bisacodyl 10 MG SUPP PR PRN (23:46)
[2017-12-04] MEDS: Lorazepam 1 MG TAB PO PRN (23:46)
[2017-12-05] MEDS: Levothyroxine Sodium 75 MCG TAB PO SCH (04:55)
[2017-12-05] MEDS: Lisinopril 10 MG TAB PO SCH (08:57)
[2017-12-05] MEDS: Clindamycin 150 MG CAP PO SCH ×3 (08:57→16:50)
[2017-12-05] MEDS: Mupirocin 2% Ointment 22 GM Tube TOP SCH ×3 (08:58→20:58)
[2017-12-05] MEDS: Enoxaparin Sodium 30 MG/0.3 ML SYRINGE SC SCH (08:58)
[2017-12-05] MEDS: Lantiseptic Ointment 130 GM JAR TOP SCH ×2 (08:58→20:58)
[2017-12-05] MEDS: Polyethylene Glycol 3350 17 GM Packet PO SCH (08:59)
[2017-12-05] MEDS: Lorazepam 1 MG TAB PO PRN (09:36)
[2017-12-05] MEDS: traMADol HCl 50 MG TAB PO PRN ×2 (09:36→17:02)
[2017-12-05] MEDS: Mirtazapine 15 MG TAB PO SCH (20:57)
[2017-12-05] MEDS: Temazepam 15 MG CAP PO SCH (20:57)
[2017-12-05] MEDS: Donepezil HCl 10 MG TAB PO SCH (20:58)
[2017-12-05] MEDS: risperiDONE 0.5 MG TAB PO SCH (20:59)
[2017-12-06] MEDS: Clindamycin 150 MG CAP PO SCH ×5 (00:56→23:19)
[2017-12-06] MEDS: Levothyroxine Sodium 75 MCG TAB PO SCH (05:49)
[2017-12-06] MEDS: Lisinopril 10 MG TAB PO SCH (10:38)
[2017-12-06] MEDS: risperiDONE 0.5 MG TAB PO SCH ×2 (10:38→19:44)
[2017-12-06] MEDS: Polyethylene Glycol 3350 17 GM Packet PO SCH (10:39)
[2017-12-06] MEDS: Mupirocin 2% Ointment 22 GM Tube TOP SCH ×3 (10:39→19:43)
[2017-12-06] MEDS: Lantiseptic Ointment 130 GM JAR TOP SCH ×2 (10:40→19:43)
[2017-12-06] MEDS: Enoxaparin Sodium 30 MG/0.3 ML SYRINGE SC SCH (10:40)
[2017-12-06] MEDS: Mirtazapine 15 MG TAB PO SCH (19:43)
[2017-12-06] MEDS: Donepezil HCl 10 MG TAB PO SCH (19:43)
[2017-12-06] MEDS: Temazepam 15 MG CAP PO SCH (19:44)
[2017-12-06] MEDS: traMADol HCl 50 MG TAB PO PRN (23:19)
[2017-12-07] MEDS: Levothyroxine Sodium 75 MCG TAB PO SCH (05:45)
[2017-12-07] MEDS: Polyethylene Glycol 3350 17 GM Packet PO SCH (08:37)
[2017-12-07] MEDS: Enoxaparin Sodium 30 MG/0.3 ML SYRINGE SC SCH (08:37)
[2017-12-07] MEDS: risperiDONE 0.5 MG TAB PO SCH ×2 (08:38→20:00)
[2017-12-07] MEDS: Lisinopril 10 MG TAB PO SCH (08:38)
[2017-12-07] MEDS: Clindamycin 150 MG CAP PO SCH ×2 (08:38→16:23)
[2017-12-07] MEDS: Lantiseptic Ointment 130 GM JAR TOP SCH ×2 (08:39→19:59)
[2017-12-07] MEDS: Mupirocin 2% Ointment 22 GM Tube TOP SCH ×3 (08:40→19:59)
--- NOTE | 2017-12-07 09:17 | PRG ---
DATE OF SERVICE: 12/07/2017 SUBJECTIVE: I visited with the patient's son this morning, Kris, and he said through the weekend sh rico has had episodes where she was anxious and agitated. On the morning of 12/05/2017 when I visited h er, she was just unconsolable. She was sitting up in a chair, crying and difficult to calm. Apparen tly she has been having some more episodes of this. Her Ativan was stopped and she was started on lo w dose of risperidone 0.25 mg b.i.d. OBJECTIVE: This morning the patient lying in her bed sleeping. She looks very comfortable. Her vit al signs show a temperature of 99.5, pulse has been 109, respirations 20, O2 sat 99%, blood pressure 131/74. Lungs are clear. Heart, regular rate. Extremities, no edema. Skin, the little areas of i mpetigo on the face are all just about healed, they looked much better. Extremities; no edema. ASSESSMENT: 1. Urinary tract infection. A. Resolved, completed a 10-day course of Cipro on 11/27/2017. 2. Generalized weakness. A. The patient is tolerating sitting up in a Heydi chair. She can walk up to 10 feet with a roll ing walker and maximum assist. Requires maximum assistance with transfers. Unchanged as of 12/02/2017. 3. Fracture of the right side of the pubic symphysis secondary to a fall on 09/07/2017. A. Healed as of 12/04/2017. 4. Alzheimer dementia. A. Complicated by episodes of agitation and sundowning that have not been controlled with lorazep am. She was started on risperidone 0.25 mg b.i.d. on 12/05/2017. Little improvement as of 12/07/2017. B. Insomnia, controlled on the Restoril as of 12/07/2017. 5. Severe expressive aphasia. 6. Hypertension. A. Controlled. 7. Hypothyroidism. 8. Urinary retention. A. 1400 mL residual with placement catheter on 09/10/2017. B. Trial of removal of catheter unsuccessful on 10/17/2017, requiring replacement of the cathet er on 10/18/2017. 9. Depression. A. Some of the agitation in the afternoon is probably sundowning, but there may also be some shahida ment of depression and fatigue and recurrence of the depression as of 11/05/2017. B. Improved as of 12/04/2017. 10. Impetigo on the face. A. Has not been responsive to the Bactroban ointment as of 11/30/2017. B. Resolving as of 12/07/2017. PLAN: Continue present care. The patient's behavioral issues and agitation has not been controlled , seem a little better. We will continue the risperidone. I feel like as she is on this a little lo nger, this will improve further. The patient's son, Kris said that he and his brother Narendra are allison g to look at another home today to make a decision on where to send her upon her discharge.
[2017-12-07] MEDS: Donepezil HCl 10 MG TAB PO SCH (19:59)
[2017-12-07] MEDS: Temazepam 15 MG CAP PO SCH (20:00)
[2017-12-07] MEDS: Mirtazapine 15 MG TAB PO SCH (20:00)
[2017-12-08] MEDS: Clindamycin 150 MG CAP PO SCH ×4 (00:31→23:41)
[2017-12-08] MEDS: Levothyroxine Sodium 75 MCG TAB PO SCH (05:00)
[2017-12-08] MEDS: Polyethylene Glycol 3350 17 GM Packet PO SCH (08:25)
[2017-12-08] MEDS: risperiDONE 0.5 MG TAB PO SCH ×2 (08:27→20:25)
[2017-12-08] MEDS: Lisinopril 10 MG TAB PO SCH (08:27)
[2017-12-08] MEDS: Enoxaparin Sodium 30 MG/0.3 ML SYRINGE SC SCH (08:33)
[2017-12-08] MEDS: Mupirocin 2% Ointment 22 GM Tube TOP SCH ×3 (08:33→20:26)
[2017-12-08] MEDS: Lantiseptic Ointment 130 GM JAR TOP SCH ×2 (08:34→20:26)
[2017-12-08] MEDS: Temazepam 15 MG CAP PO SCH (20:25)
[2017-12-08] MEDS: Mirtazapine 15 MG TAB PO SCH (20:26)
[2017-12-08] MEDS: Donepezil HCl 10 MG TAB PO SCH (20:26)
[2017-12-09] MEDS: Levothyroxine Sodium 75 MCG TAB PO SCH (05:47)
[2017-12-09] MEDS: Lisinopril 10 MG TAB PO SCH (08:18)
[2017-12-09] MEDS: Clindamycin 150 MG CAP PO SCH ×2 (08:18→15:20)
[2017-12-09] MEDS: Enoxaparin Sodium 30 MG/0.3 ML SYRINGE SC SCH (08:19)
[2017-12-09] MEDS: Lantiseptic Ointment 130 GM JAR TOP SCH ×2 (08:19→20:13)
[2017-12-09] MEDS: risperiDONE 0.5 MG TAB PO SCH ×2 (08:21→20:11)
[2017-12-09] MEDS: Mupirocin 2% Ointment 22 GM Tube TOP SCH ×3 (08:21→20:12)
[2017-12-09] MEDS: Polyethylene Glycol 3350 17 GM Packet PO SCH (08:22)
--- NOTE | 2017-12-09 08:50 | PRG ---
DATE OF SERVICE: 12/09/2017 SUBJECTIVE: The patient has been sleeping good at night. Her days seemed to be a lot calmer. She i s not having episodes of agitation since she has been on the risperidone 0.25 mg b.i.d. OBJECTIVE: The patient is sleeping, but easily aroused. She looks very comfortable and in no distre ss. Her temperature 97.2, pulse 96, respirations 20, O2 saturation 94% on room air, blood pressure 1 34/89. Lungs are clear. Heart, regular rate. Extremities, no edema. The patient is still working with physical therapy and she is still maximum assist with transfers. She has not attempted to do an y walking over the last days. ASSESSMENT: 1. Urinary tract infection. A. Resolved, completed a 10-day course of Cipro on 11/27/2017. 2. Generalized weakness. A. The patient tolerating sitting up in a Heydi chair, but requires maximum assist with any transf er. The patient is not attempting to ambulate as of 12/09/2017. 3. Fracture of the right side of the pubic symphysis secondary to a fall on 09/07/2017. A. Healed as of 12/04/2017. 4. Alzheimer dementia. A. Complicated by episodes of agitation, sundowning that are controlled as of 12/09/2017. B. Complicated by insomnia that is controlled as of 12/09/2017. 5. Severe expressive aphasia. 6. Hypertension. A. Controlled. 7. Hypothyroidism. 8. Urinary retention. A. 1400 mL residual with placement catheter on 09/10/2017. B. Trial of removal of catheter unsuccessful on 10/17/2017, requiring replacement of the cathet er on 10/18/2017. 9. Depression. A. Improved as of 12/09/2017. 10. Impetigo on the face. A. Has not been responsive to the Bactroban ointment as of 11/30/2017. B. Resolving as of 12/07/2017. PLAN: Continue present care. The patient's sons, Kris and Narendra have been looking at nursing homes and have decided on placement of Ms. Mirza in [facility] looking toward Thursday 8 for transfer to [facility].
[2017-12-09] MEDS: Mirtazapine 15 MG TAB PO SCH (20:10)
[2017-12-09] MEDS: Temazepam 15 MG CAP PO SCH (20:10)
[2017-12-09] MEDS: Donepezil HCl 10 MG TAB PO SCH (20:11)
[2017-12-10] MEDS: Clindamycin 150 MG CAP PO SCH (01:45)
[2017-12-10] MEDS: Levothyroxine Sodium 75 MCG TAB PO SCH (05:25)
[2017-12-10] MEDS: Lisinopril 10 MG TAB PO SCH (08:15)
[2017-12-10] MEDS: risperiDONE 0.5 MG TAB PO SCH ×2 (08:16→20:02)
[2017-12-10] MEDS: Mupirocin 2% Ointment 22 GM Tube TOP SCH ×3 (08:16→20:03)
[2017-12-10] MEDS: Lantiseptic Ointment 130 GM JAR TOP SCH ×2 (08:16→20:03)
[2017-12-10] MEDS: Polyethylene Glycol 3350 17 GM Packet PO SCH (08:16)
[2017-12-10] MEDS: Enoxaparin Sodium 30 MG/0.3 ML SYRINGE SC SCH (08:17)
--- NOTE | 2017-12-10 08:40 | PRG ---
DATE OF SERVICE: 12/10/2017 SUBJECTIVE: The patient has been sleeping well at night. She is much calmer in the daytime. OBJECTIVE: GENERAL: The patient is resting in bed. She appears in no distress. She looks very comfortable. VITAL SIGNS: Her temp 97.9, pulse was 103, earlier it was 68, blood pressure 124/58, O2 sat 96% on r oom air, and respirations 20. LUNGS: Clear. HEART: Regular rate. EXTREMITIES: No edema. SKIN: Skin on the face, impetiginous lesions have all resolved. ASSESSMENT: 1. Urinary tract infection. A. Resolved, completed a 10-day course of Cipro on 11/27/2017. 2. Generalized weakness. A. The patient tolerating sitting up in a Heydi chair, but requires maximum assist with any transf er. The patient is not attempting to ambulate as of 12/09/2017. B. Stable as of 12/10/2017. 3. Fracture of the right side of the pubic symphysis secondary to a fall on 09/07/2017. A. Healed as of 12/04/2017. 4. Alzheimer dementia. A. Complicated by episodes of agitation, sundowning that are controlled as of 12/10/2017. B. Complicated by insomnia that is controlled as of 12/10/2017. 5. Severe expressive aphasia. 6. Hypertension. A. Controlled. 7. Hypothyroidism. 8. Urinary retention. A. 1400 mL residual with placement catheter on 09/10/2017. B. Trial of removal of catheter unsuccessful on 10/17/2017, requiring replacement of the cathet er on 10/18/2017. 9. Depression. A. Improved as of 12/09/2017. 10. Impetigo on the face. A. Has not been responsive to the Bactroban ointment as of 11/30/2017. B. Resolved as of 12/10/2017. PLAN: Continue present care. Discontinue the clindamycin. Arrangements are being made for the higinio ent to enter [facility] on 12/14/2017.
[2017-12-10] MEDS: Mirtazapine 15 MG TAB PO SCH (20:02)
[2017-12-10] MEDS: Donepezil HCl 10 MG TAB PO SCH (20:02)
[2017-12-10] MEDS: Temazepam 15 MG CAP PO SCH (20:02)
[2017-12-11] MEDS: Levothyroxine Sodium 75 MCG TAB PO SCH (05:29)
[2017-12-11] MEDS: Enoxaparin Sodium 30 MG/0.3 ML SYRINGE SC SCH (08:39)
[2017-12-11] MEDS: Lantiseptic Ointment 130 GM JAR TOP SCH ×2 (08:40→20:27)
[2017-12-11] MEDS: Mupirocin 2% Ointment 22 GM Tube TOP SCH (08:40)
[2017-12-11] MEDS: Lisinopril 10 MG TAB PO SCH (08:40)
[2017-12-11] MEDS: risperiDONE 0.5 MG TAB PO SCH ×2 (08:41→20:27)
[2017-12-11] MEDS: Polyethylene Glycol 3350 17 GM Packet PO SCH (08:41)
--- NOTE | 2017-12-11 09:51 | PRG ---
DATE OF SERVICE: 12/11/2017 SUBJECTIVE: The patient has been sleeping good. She has been very calm during the day. She has had no complaint. Her son, Kris, said things have been going well with her. Nurses have no concerns. OBJECTIVE: The patient is sitting up in her Heydi chair. She is alert, smiling, seems very comfortab le and happy. Her vital signs show temperature 96.7, pulse 88, respirations 18, O2 saturation 98% on room air, blood pressure 129/59. Lungs are clear. Heart, regular rate. Extremities, no edema. Th e face impetiginous lesions have all resolved. ASSESSMENT: 1. Urinary tract infection. A. Resolved, completed a 10-day course of Cipro on 11/27/2017. 2. Generalized weakness. A. The patient tolerating sitting up in a Heydi chair, but requires maximum assist with any transf er. The patient is not attempting to ambulate as of 12/09/2017. B. Stable as of 12/11/2017. 3. Fracture of the right side of the pubic symphysis secondary to a fall on 09/07/2017. A. Healed as of 12/04/2017. 4. Alzheimer dementia. A. Complicated by episodes of agitation, sundowning that are controlled as of 12/10/2017. B. Complicated by insomnia that is controlled as of 12/11/2017. 5. Severe expressive aphasia. 6. Hypertension. A. Controlled. 7. Hypothyroidism. 8. Urinary retention. A. 1400 mL residual with placement catheter on 09/10/2017. B. Trial of removal of catheter unsuccessful on 10/17/2017, requiring replacement of the cathet er on 10/18/2017. 9. Depression. A. Controlled as of 12/11/2017. 10. Impetigo on the face. A. Has not been responsive to the Bactroban ointment as of 11/30/2017. B. Resolved as of 12/10/2017. PLAN: Continue present care. Will discontinue the mupirocin to the face. We will change out this c atheter as necessary due to have urinary retention with recurrent UTIs at this time and planning [facility].
[2017-12-11] MEDS: Temazepam 15 MG CAP PO SCH (20:28)
[2017-12-11] MEDS: Donepezil HCl 10 MG TAB PO SCH (20:28)
[2017-12-11] MEDS: Mirtazapine 15 MG TAB PO SCH (20:28)
[2017-12-12] MEDS: Levothyroxine Sodium 75 MCG TAB PO SCH (05:27)
[2017-12-12] MEDS: Enoxaparin Sodium 30 MG/0.3 ML SYRINGE SC SCH (09:06)
[2017-12-12] MEDS: Polyethylene Glycol 3350 17 GM Packet PO SCH (09:06)
[2017-12-12] MEDS: risperiDONE 0.5 MG TAB PO SCH ×2 (09:06→20:56)
[2017-12-12] MEDS: Lisinopril 10 MG TAB PO SCH (09:07)
[2017-12-12] MEDS: Lantiseptic Ointment 130 GM JAR TOP SCH ×2 (09:13→20:57)
[2017-12-12] MEDS: Donepezil HCl 10 MG TAB PO SCH (20:56)
[2017-12-12] MEDS: Temazepam 15 MG CAP PO SCH (20:56)
[2017-12-12] MEDS: Mirtazapine 15 MG TAB PO SCH (20:56)
[2017-12-13] MEDS: Levothyroxine Sodium 75 MCG TAB PO SCH (05:52)
[2017-12-13] MEDS: Polyethylene Glycol 3350 17 GM Packet PO SCH (09:07)
[2017-12-13] MEDS: risperiDONE 0.5 MG TAB PO SCH ×2 (09:08→20:57)
[2017-12-13] MEDS: Enoxaparin Sodium 30 MG/0.3 ML SYRINGE SC SCH (09:08)
[2017-12-13] MEDS: Lisinopril 10 MG TAB PO SCH (09:08)
[2017-12-13] MEDS: Lantiseptic Ointment 130 GM JAR TOP SCH ×2 (09:09→20:58)
[2017-12-13] MEDS: Mirtazapine 15 MG TAB PO SCH (20:56)
[2017-12-13] MEDS: Temazepam 15 MG CAP PO SCH (20:57)
[2017-12-13] MEDS: Donepezil HCl 10 MG TAB PO SCH (20:58)
[2017-12-14] MEDS: Levothyroxine Sodium 75 MCG TAB PO SCH (05:26)
[2017-12-14] MEDS: Lantiseptic Ointment 130 GM JAR TOP SCH (08:15)
[2017-12-14] MEDS: Enoxaparin Sodium 30 MG/0.3 ML SYRINGE SC SCH (08:15)
[2017-12-14] MEDS: Lisinopril 10 MG TAB PO SCH (08:15)
[2017-12-14] MEDS: Polyethylene Glycol 3350 17 GM Packet PO SCH (08:16)
[2017-12-14] MEDS: risperiDONE 0.5 MG TAB PO SCH (08:16)
[2017-12-14 08:17] VITALS: BP 134/74
[2017-12-14 08:21] VITALS: TEMP 97.5
--- NOTE | 2017-12-14 09:00 | DIS ---
DATE OF ADMISSION: To acute care on 09/07/2018 TRANSFERRED TO EXTENDED CARE: 09/10/2017 DATE OF DISCHARGE: 12/14/2017 FINAL DIAGNOSES: 1. Generalized weakness. A. Following a fall and fracture to the pubic symphysis on 09/07/2017. B. Has left her bed and chair confined and nonambulatory as of 12/14/2017. 2. Fracture of the right side of the pubic symphysis secondary to a fall on 01/2017. A. Healed. 3. Alzheimer's dementia. A. Complicated by episodes of agitation and sundowning that are controlled. B. Complicated by insomnia that is controlled. 4. Urinary tract infection. A. Resolved. Completed 10-day course of Cipro on 11/27/2017. 5. Severe expressive aphasia. A. Secondary to a previous cerebrovascular accident. 6. Hypertension. 7. Hypothyroidism. 8. Urinary retention. A. Requires indwelling Cha catheter. B. Trial of removal of catheter, unsuccessful, requiring replacement of catheter on 10/18/2017. C. Catheter last changed out 12/11/2017, will need to be changed monthly. 9. Depression. A. Controlled. 10. Impetigo on the face. A. Resolved. SUMMARY: The patient is an 82-year-old white female, who has a history of hypertension, hypothyroidism, Alzheimer's dementia, and severe expressive aphasia from a previous CVA. She lives at her home with her son and manages all her instrumental ADLs. The patient able to assist with her ADLs, but requires some cueing. The patient was ambulatory, had reasonable control of her bladder and bowels, and was able to feed herself. The patient had a fall on 09/07/2017, from which she could withstand and has severe pain. The patient was brought to the emergency room and was found to have a closed undisplaced fracture of the right side of the pubic symphysis. The hips were intact and no evidence of fracture. The patient was admitted to the hospital for fracture of the pubic symphysis that has left her nonambulatory and with severe pain. HOSPITAL COURSE: The patient was initially at bed rest due to the pain. She was placed on DVT prophylaxis with Lovenox. The patient's pain was managed initially with Tylenol and tramadol, and when this was not adequate, had to place her on hydrocodone. The patient had a Cha catheter inserted that she was not able to get up to urinate and even the movement in bed caused increased pain. Efforts to get her up in a chair after several days were unsuccessful due to her pain. Temporarily a pelvic binder was placed on her, which seemed to help some with her pain and allowed more ease of movement. The patient was moved to extended care on 09/10/2017. Her physical therapy had been working with her, but progress was very slowed by her pain. Gradually, the pain seemed to get less and less, but the patient still required maximum assist to get up in a chair and was only able to stand with maximum assistance. Her pain gradually diminished. Her followup x-ray of the pelvis showed no loss of position or other fracture. The pelvic fracture gradually healed and her pain gradually resolved. The patient's pain was well controlled with Tylenol and occasional tramadol 50 mg. Physical therapy continued to work with patient, but even though after her pain was controlled and had essentially become very minimal, she was only able to sit up in a chair with maximum assistance and never was able to really ambulate. During her hospitalization, she developed a urinary tract infection that was treated with a 10-day course of Cipro with resolution. Efforts to remove the catheter were unsuccessful. She had urinary retention with 1400 mL residual, and this was initially found on 09/10/2017. Effort to remove the catheter was unsuccessful on 10/17/2017 and had to be replaced on 10/18/2017. She has continued with the catheter since then due to the urinary retention. During her hospitalization, she developed impetigo on her face that was treated with clindamycin and Bactroban ointment with resolution. The patient developed severe episodes of agitation and sundowning that initially was tried to manage with Ativan in addition to her Aricept, but this did not work and symptoms got worse. Eventually, she required the addition of risperidone 0.25 mg b.i.d. with discontinuation of the lorazepam. She also was not sleeping. Efforts with mirtazapine and trazodone were unsuccessful. Eventually, she was placed on temazepam with excellent results. The Alzheimer's that was complicated by the sundowning and agitation was well controlled with risperidone and the insomnia well controlled on the temazepam. Her condition stabilized, she was very comfortable, but level of care required exceeded what her son could manage at home. It was elected to move patient to [facility] where she will require assistance with all her ADLs. There physical therapy will continue to work with her, but her prognosis with physical therapy is poor, because of her advanced dementia. The patient still requires the Cha catheter due to the urinary retention. This was last changed on 12/11/2017 and will need to be changed monthly. DISPOSITION: DIET: Regular diet. ACTIVITIES: Up in a chair as tolerated. PT and OT. Cha catheter will need to be changed out monthly and p.r.n., last change out was on 12/14/2017. MEDICATIONS: Acetaminophen 650 mg every 4 hours as needed, Dulcolax suppository 10 mg 1 per rectum daily p.r.n., donepezil 10 mg at bedtime, levothyroxine 75 mcg daily, lisinopril 20 mg daily, mirtazapine 45 mg at bedtime , MiraLax 17 grams and 8 ounces of water daily, risperidone 0.25 mg b.i.d., temazepam 15 mg at bedtime, tramadol 50 mg b.i.d. p.r.n. FOLLOWUP: The patient will be seen in followup within a week. CODE STATUS: DNR. MTDD
== END 2017-12-14 15:15 | DRG 536 ==
LOC: MADMS 11:58
PROVIDERS: ADMIT Family Medicine; ATTEND Family Medicine
DX: S32.501A Unspecified fracture of right pubis, initial encounter for closed fracture (principal); G30.9 Alzheimer's disease, unspecified; F02.81 Dementia in other diseases classified elsewhere, unspecified severity, with behavioral disturbance; E86.0 Dehydration; F05 Delirium due to known physiological condition; N39.0 Urinary tract infection, site not specified; Z68.1 Body mass index [BMI] 19.9 or less, adult; I69.320 Aphasia following cerebral infarction; W18.30XA Fall on same level, unspecified, initial encounter; I12.9 Hypertensive chronic kidney disease with stage 1 through stage 4 chronic kidney disease, or unspecified chronic kidney disease; N18.3 Chronic kidney disease, stage 3 (moderate); R29.6 Repeated falls; Z91.81 History of falling; E03.9 Hypothyroidism, unspecified; E78.00 Pure hypercholesterolemia, unspecified; Z98.1 Arthrodesis status; G47.00 Insomnia, unspecified; F32.9 Major depressive disorder, single episode, unspecified; L01.00 Impetigo, unspecified; R33.9 Retention of urine, unspecified; R63.0 Anorexia
CPT/HCPCS: 36415; 72170; 80048; 80053; 81001; 85007; 85025; 85027; J1650; J1940